=== PATIENT | female | born 1980 | race Caucasian/White ===

== ENCOUNTER 2024-08-24 08:38 | Outpatient (AMB) | payer OTHER, SELFPAY ==
--- NOTE | 2024-08-24 08:44 | MHC.PC.OV ---
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/ ankle issues Intake Note: establish care Is last menstrual period known: No Post menopausal: No Patient : No Allergies No Known Allergies Allergy (Verified 08/24/24 09:15) Medication List - Last Reconciled 08/24/24 by Brian Vega CNP venlafaxine ER 37.5 mg PO DAILY Tobacco use date assessed: 08/24/24 Dental Screening Dental Screen Date: 08/24/24 Did you have a dental visit in the last 12 months?: Yes Did you have a dental problem in the last 6 months where you did not have access to dental care?: Yes Was dental information given to patient?: Patient has dentist HPI HPI Comments History of Present Illness Details New patient visit to [facility]. Former PCP: [facility], Dr. Sacha Choi. Last office visit: Spring 2023. Last CPE/Labs: 1 year ago. The patient is a 44-year-old female presenting to [facility]. She has anxiety and weight management concerns. She reports being prescribed Venlafaxine 37.5 mg daily for anxiety, with the condition primarily managed through this medication. She denies concurrent depression symptoms but has experienced mild depression in the past. The patient is experiencing weight gain and persistent hot flashes associated with perimenopause, noting a weight increase of approximately 30 pounds over the past year and a half. She also has a history of bunions and arthritis in both feet, for which she wears orthotic shoe inserts. Eczema that exacerbates during winter was managed with prescription creams. 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 - Housing: Resides in [place]. - Substance Use: Vapes nicotine daily for the past five years, consumes a couple of glasses of wine few times a week, and occasionally uses THC gummies. - Exercise: Recently resumed regular exercise, walking and gym sessions twice a week. - Diet: Reports generally healthy dietary choices. - Sleep: Disturbed sleep due to hot flashes. - Medical Care: No current primary care provider due to insurance issues; sees a counselor weekly and no psychiatrist. Health Maintenance - Last eye exam was 2 years ago. Wears prescription for near and far vision. Will refer to ophthalmology. - She has not been vaccinated for influenza this season. She will be vaccinated at the end of this visit. - Her last tetanus vaccine was in 2010. She will get the vaccine at the end of this visit. - Last dental visit was 6 months ago. She has dental cleaning scheduled next week. - Last pap smear test was within a year at [facility] [place]. - Referral to dietitian planned for weight management. - Referral to an OBGYN for perimenopausal symptoms. - Referral to director of supply chain for foot and bunion issues. - Referral to plating tank operator apprentice for eczema management. - Last mammogram was June 2023 with dense breast tissue. Will order a mammogram. - She was followed by podiatry for foot issues and dermatology for seasonal eczema to both hands. [facility] - Dad: prediabetes, hypertension, hyperlipidemia - PGM: Mental illness - PGF: Diabetes - MGF: prostate cancer [facility] Medical History (Updated 08/24/24 @ 10:31 by Brian Vega CNP) Umbilical hernia Surgical History (Updated 08/24/24 @ 08:46 by ALYSSA Jj) History of knee surgery Family History (Updated 08/24/24 @ 08:49 by ALYSSA Jj) Paternal Grandmother FH: mental illness Family/Other FH: mental illness Daughter FH: mental illness Father High blood pressure High cholesterol Diabetes Paternal Grandfather Diabetes Maternal Grandfather Prostate cancer Social History (Updated 08/24/24 @ 08:46 by ALYSSA Jj) Housing: House Patient Tobacco Use Status: Never used Tobacco e-Cigarette/Vaping Use: Currently Using Substance Use Type: Marijuana service: No Current occupational status: employed 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 1. Little interest or pleasure in doing things: several days 2. Feeling down, depressed, or hopeless: several days 3. Trouble falling or staying asleep, or sleeping too much: more than half the days 4. Feeling tired or having little energy: more than half the days 5. Poor appetite or overeating: not at all 6. Feeling bad about yourself - or that you are a failure or have let yourself or your family down: several days 7. Trouble concentrating on things, such as reading the newspaper or watching television: not at all 8. Moving or speaking so slowly that other people could have noticed. Or the opposite - being so fidgety or restless that you have been moving around a lot more than usual: not at all 9. Thoughts that you would be better off or of hurting yourself in some way: not at all Total score: 7 Depression Screening Interpretation: Positive Depression Screening Done: Yes 31390 - PHQ-9 Billing: Yes Source: Developed by Drs. Henrique Zapata, Marilynn Pastor, Jose Malcolm and colleagues, with an educational wandy from [employer]. Thrive Questionnaire Date Thrive assessed: 08/24/24 I am a: Patient What is your living situation today?: I have a steady place to live Within the past 12 months, did the food you bought not last and you didn't have the money to get more?: Never true Within the past 12 months, did you worry whether your food would run out before you got money to buy more?: Never true Do you have trouble paying for medicines?: No Do you have trouble getting transportation to medical appointments?: No Do you have trouble paying your heating and electricity bill?: No Do you have trouble taking care of your child, family member or friend?: No Do you have trouble with day-to-day activities such as bathing, preparing meals, shopping, managing finances, etc.?: No Are you currently unemployed and looking for a job?: No Are you interested in more education?: Yes Please select the resources that you would like help with: None Currently or been in a relationship where the following occur: No concerns reported THRIVE Score: 0 AUDIT C Alcohol Use Questionnaire (AUDIT-C) 1. How often do you have a drink containing alcohol?: 2-3 times a week 2. How many drinks containing alcohol do you have on a typical day when you are drinking?: 3 or 4 3. How often do you have six or more drinks on one occasion?: Monthly Total Score: 6 Score Reviewed/Action Taken: Yes ISRAEL-7 AMB Questionnaire ISRAEL-7 Date ISRAEL - 7 assessed: 08/24/24 Feeling nervous, anxious, or on edge: 1 = Several days Not being able to stop or control worryin = Several days Worrying too much about different things: 1 = Several days Trouble relaxin = Several days Being so restless that it is hard to sit still: 2 = More than half the days Becoming easily annoyed or irritable: 1 = Several days Feeling afraid as if something awful might happen: 0 = Not at all Total ISRAEL-7 score (0-4 normal; 5-9 mild; 10-14 moderate; 15-21 severe): 7 Source: Developed by Drs. Henrique Zapata, Marilynn Pastor, Jose Malcolm and colleagues, with an educational wandy from [employer]. ISRAEL-7 Assessment Billing ISRAEL-7 Assessment Tool: ISRAEL-7 Assessment 77224 Review of Systems Const Details: Denies chills, Denies fatigue, Denies fever(s), Denies headache(s) and Denies weakness HEENT Denies change in vision, Denies dizziness, Denies headache(s), Denies hearing loss, Denies nasal congestion, Denies sinus pain, Denies sinus pressure and Denies sore throat Card Denies chest pain, Denies lightheadedness, Denies dyspnea and Denies other (palpitations) Resp Denies cough, Denies dyspnea and Denies wheezing GI Denies abdominal pain, Denies melena, Denies hematochezia, Denies change in bowel habits, Denies dyspepsia and Denies nausea Denies hematuria and Denies dysuria Musc Reports arthritis in feet and bunions, uses orthotic inserts, Denies abnormal gait, Denies myalgias, Denies numbness and Denies tingling Skin/Breast Reports eczema on hands that worsens in winter, Denies unusual bruising and Denies wounds Neuro Denies abnormal gait, Denies dizziness, Denies headache(s), Denies memory loss, Denies numbness, Denies Sensory deficit (Neuro), Denies tingling and Denies weakness Psych Denies anxiety, Denies depression and Denies memory loss Endo Denies cold intolerance, Denies fatigue, Denies heat intolerance, Denies polydipsia and Denies polyuria Gutierrez/Lymph Denies easy bleeding and Denies easy bruising Aller/Immun Denies wheezing Physical exam (Primary Care) Vital Signs: Last Vital Signs Temp 99.4 F 08/24/24 08:51 Pulse 99 08/24/24 08:51 Resp 16 08/24/24 08:51 BP 120/80 08/24/24 09:06 Pulse Ox 98 08/24/24 08:51 Oxygen Delivery Method Room Air 08/24/24 08:51 BMI result Body Mass Index 29.0 Tobacco/Smoking Status: Tobacco use Status Tobacco use date assessed 08/24/24 08/24/24 09:14 Patient Tobacco Use Status Never used Tobacco 08/24/24 09:14 e-Cigarette/Vaping Use Currently Using 08/24/24 09:14 PHQ-9: PHQ-9 Score PHQ-9: Total score 7 08/24/24 10:09 Depression Screening Interpretation: Positive Thrive Assessment: Date of Thrive Assessment Date Thrive assessed 08/24/24 08/24/24 08:56 Currently or been in a relationship where the following occur: No concerns reported Const Other: General: no acute distress, well developed, alert and awake Nutritional Appearance: well nourished Orientation/consciousness: patient oriented x3 HENMT Head: Yes normocephalic and Yes atraumatic Ears: hearing grossly normal bilaterally and TM's normal bilaterally General nose exam: Normal external nose present and Normal nares present Mouth: Normal oral and palatal mucosa present and moist mucous membranes Teeth and gingiva: dentition normal Throat: Yes oropharynx normal Eyes Pupils: Equal, round and reactive pupils present and Pupil accommodation reflex normal EOM: EOMs intact bilaterally Neck Neck: Yes normal visual inspection, Yes no lymphadenopathy and Yes trachea midline Thyroid: Thyroid normal Carotids: no bruits Lymphatic: no lymphadenopathy noted Chest Chest palpation & inspection: normal inspection of the chest Resp Effort & Inspection: normal respiratory effort Auscultation: clear to auscultation bilaterally Cardio Rate: regular rate Rhythm: regular rhythm Heart sounds: S1 normal heart sound present, S2 normal heart sound present, no gallops, no murmurs and no rubs Bruits: no abdominal aortic bruits and no carotid bruits GI Palpation (GI): No Abdominal aortic bruit present, Soft to palpation, nontender, No hepatosplenomegaly present and No Rebound tenderness present Auscultation: normal bowel sounds General: Yes no CVA tenderness Back/Spine/Pelvis Back: no CVA tenderness Cervical Spine: cervical ROM normal and No Cervical spine tenderness Thoracic/Lumbar Spine: thoraco-lumbar ROM normal, No pain with thoraco-lumbar ROM, No thoracic spinal tenderness and No lumbar spinal tenderness Skin General: warm and dry. Normal skin color. Normal skin turgor Lesions: no lesions Rashes: no rashes Trauma: no lacerations or abrasions Wounds: no wounds Nails: normal Neuro General: patient oriented x3, gait normal and CN's II-XI intact bilaterally Cranial nerves: Yes Equal, round and reactive pupils present Cognition (Neuro): normal cognition Gait exam (Neuro): Normal gait present Motor exam (neuro): 5/5 motor strength present throughout Sensory Exam: No Sensory deficit (Neuro) Deep tendon reflexes (DTR's): Right patellar reflex intensity grade: 2+ and Left patellar reflex intensity grade: 2+ Extrem General: Yes normal to inspection, No edema and No calf tenderness Psych Appearance: grossly normal Affect: normal affect Attitude: cooperative Thought process: Normal thought process present Office Procedures Flu Questionnaire Does the patient have a severe egg allergy?: No Does the patient have severe life threatening allergies?: No Does the patient have a fever or illness today?: No Has the patient ever had Guillain-[place] Syndrome?: No Has the patient ever had any past reaction to a flu shot?: No Immunizations Fluarix Triv 6705-3297 (PF) 45 mcg (15 mcg x 3)/0.5 mL IM syringe Performing Provider: Brian Vega CNP Performing Location: [facility] [place] [facility] Administered by: Daya Madrigal RN on 08/24/24 10:09 Dose Route Admin Location Dispensed Lot Number Expiration Date [facility] Academic Counselor 0.5 mL IM Left Deltoid 0.5 mL [id number] 03/19/25 [id number] [employer] VIS Given Date VIS Provided VIS Publication Date 08/24/24 Single Vaccine 21 Eligibility Eligibility Date Funding Source Not [facility] Eligible 08/24/24 Private Administration Comments: Patient received two shots in the left deltoid, the flu vaccine and the TDaP. Flu shot was given to the left of the TDaP. Boostrix Tdap 2.5 Lf unit-8 mcg-5 Lf/0.5 mL intramuscular syringe Performing Provider: Brian Vega CNP Performing Location: [facility] [place] [facility] Administered by: Daya Madrigal RN on 08/24/24 10:09 Dose Route Admin Location Dispensed Lot Number Expiration Date [facility] Academic Counselor 0.5 mL IM Left Deltoid 0.5 mL [id number] 10/11/26 [id number] [employer] VIS Given Date VIS Provided VIS Publication Date 08/24/24 Single Vaccine 21 Eligibility Eligibility Date Funding Source Not [facility] Eligible 08/24/24 Private Administration Comments: Patient received two shots in the left deltoid, the flu vaccine and the TDaP. Flu shot was given to the left of the TDaP. Coding Level of Care Code New Pt Level 3 (48806) New Pt Prev Care 40-64y(72297) Diagnoses Normal physical examination, routine Z00.00 Anxiety F41.9 Perimenopausal vasomotor symptoms N95.1 Preventative health care Z00.00 Encounter for weight management Z76.89 Engages in vaping Z72.89 Eczema of both hands L30.9 Bilateral bunions M21.611; M21.612 Arthritis of both feet M19.071; M19.072 Eye exam, routine Z01.00 Laboratory tests ordered as part of a complete physical exam (CPE) Z00.00 Additional Codes ISRAEL-7 Assessment Billing - ISRAEL-7 Assessment Tool: ISRAEL-7 Assessment 78860 ([id number]) PHQ-9 - 91140 - PHQ-9 Billing: Yes ([id number]) Assessment & Plan Assessment & Plan (1) Normal physical examination, routine: Code(s): Z00.00 - Encounter for general adult medical examination without abnormal findings Category: Medical Plan: No significant functional limitation noted. (2) Anxiety: Code(s): F41.9 - Anxiety disorder, unspecified Category: Medical Plan: Continue current current treatment regimen. Follow up with therapist as planned. Focus on managing anxiety with lifestyle modifications. (3) Perimenopausal vasomotor symptoms: Code(s): N95.1 - Menopausal and female climacteric states Category: Medical Plan: Refer to an OBGYN for professional management of symptoms. (4) Preventative health care: Code(s): Z00.00 - Encounter for general adult medical examination without abnormal findings Category: Medical Plan: Administer flu vaccine and tetanus booster. Order mammogram and referred to ophthalmology. (5) Encounter for weight management: Code(s): Z76.89 - Persons encountering health services in other specified circumstances Category: Medical Plan: Refer to dietitian for nutritional counseling. (6) Engages in vaping: Code(s): Z72.89 - Other problems related to lifestyle Category: Medical Plan: Instructed on the health risks and complications of vaping and cessation encouraged. (7) Eczema of both hands: Code(s): L30.9 - Dermatitis, unspecified Category: Medical Plan: Refer to plating tank operator apprentice for history of seasonal eczema of both hands. (8) Bilateral bunions: Code(s): M21.611 - Bunion of right foot; M21.612 - Bunion of left foot Category: Medical Plan: Refer for follow-up on orthosis fit and bunion management. (9) Arthritis of both feet: Code(s): M19.071 - Primary osteoarthritis, right ankle and foot; M19.072 - Primary osteoarthritis, left ankle and foot Category: Medical Plan: Plan as above. (10) Eye exam, routine: Code(s): Z01.00 - Encounter for examination of eyes and vision without abnormal findings Category: Medical Plan: Refer to ophthalmology for routine eye exam. (11) Laboratory tests ordered as part of a complete physical exam (CPE): Code(s): Z00.00 - Encounter for general adult medical examination without abnormal findings Category: Medical Plan: Fasting labs ordered as part of a complete physical exam. Advised to fast for at least 10 hours before getting labs drawn. May drink water Verbalized understanding and agreed with treatment plan. Plan I discussed with the patient the current management of her anxiety with Venlafaxine and confirmed it appears to be effectively controlling symptoms. We addressed the impact of perimenopausal symptoms on her weight and sleep, and hence recommended consulting an OBGYN for tailored management. I explained the benefits of regular exercise and healthy diet in weight management, especially in the context of hormone changes. We also discussed referring her to a dietitian for more structured nutritional advice. I advised on the importance of stopping vaping due to its associated risks and suggested possible cessation aids. All recommendations, including necessary vaccinations and health screenings, were discussed, emphasizing the importance of preventive health. Orders: Orders TDaP Immunization Today Z23 - Encounter for immunization Complete Blood Count Auto Diff Today Z00.00 - Encounter for general adult medical examination without abnormal findings Lipid Panel Today Z00.00 - Encounter for general adult medical examination without abnormal findings MM screening mammo BI Today Z12.31 - Encounter for screening mammogram for malignant neoplasm of breast Influenza [id number] Immunization Today Z23 - Encounter for immunization Comprehensive [place]. Panel Fast Today Z00.00 - Encounter for general adult medical examination without abnormal findings TSH reflex Free T4 Today Z00.00 - Encounter for general adult medical examination without abnormal findings UA CC w/rflx Micro + Cult Today Z00.00 - Encounter for general adult medical examination without abnormal findings Microalbumin, Random (w Creat) Today Z00.00 - Encounter for general adult medical examination without abnormal findings Referrals STAFF PSYCHOLOGIST Referral N95.1 - Menopausal and female climacteric states Ophthalmology Referral Z01.00 - Encounter for examination of eyes and vision without abnormal findings Dermatology Referral L30.9 - Dermatitis, unspecified Podiatry Referral M19.071 - Primary osteoarthritis, right ankle and foot, M19.072 - Primary osteoarthritis, left ankle and foot, M21.611 - Bunion of right foot, M21.612 - Bunion of left foot Patient Instructions: - Continue taking Venlafaxine as prescribed. - Schedule and attend referrals to dietitian, OBGYN, director of supply chain, and plating tank operator apprentice. - Receive flu and tetanus vaccines as planned. - Schedule mammogram and eye exam as advised. - Maintain a balanced diet and engage in regular physical activity. - Consider discontinuing vaping and explore cessation alternatives. - Monitor eczema and contact a plating tank operator apprentice for prescription if symptoms worsen. - Fast for 10-12 hours before lab tests to be conducted prior to the next telehealth visit in 2-3 weeks. - Confirm your next telehealth appointment to review lab results before leaving today. Patient was informed and verbally consented to the use of an ambient scribe for clinic note documentation during this visit.
[2024-08-24 08:51] VITALS: BP 130/90; PULSE 99; RESP 16; TEMP 37.4; O2SAT 98; BMI 29.0
[2024-08-24 09:06] VITALS: BP 120/80
== END 2024-08-24 09:46 | disposition home or self-care (01) ==
PROVIDERS: Visit Provider Nurse Practitioner Family
DX: Z00.00 Encounter for general adult medical examination without abnormal findings (principal); F41.9 Anxiety disorder, unspecified; N95.1 Menopausal and female climacteric states; Z76.89 Persons encountering health services in other specified circumstances; Z72.89 Other problems related to lifestyle; L30.9 Dermatitis, unspecified; M21.611 Bunion of right foot; M21.612 Bunion of left foot; M19.071 Primary osteoarthritis, right ankle and foot; M19.072 Primary osteoarthritis, left ankle and foot; Z01.00 Encounter for examination of eyes and vision without abnormal findings; Z23 Encounter for immunization

== ENCOUNTER → 2024-08-24 08:38 | Outpatient (BNVA) | payer OTHER, SELFPAY | PROVIDERS: Visit Provider Nurse Practitioner Family | DX: Z00.01 Encounter for general adult medical examination with abnormal findings (principal); Z23 Encounter for immunization; F41.9 Anxiety disorder, unspecified; N95.1 Menopausal and female climacteric states; L30.9 Dermatitis, unspecified; M21.611 Bunion of right foot; M21.612 Bunion of left foot; M19.071 Primary osteoarthritis, right ankle and foot; M19.072 Primary osteoarthritis, left ankle and foot; Z76.89 Persons encountering health services in other specified circumstances; Z72.89 Other problems related to lifestyle | CPT/HCPCS: 90471; 90472; 90656; 90715; 96127 ==

== ENCOUNTER 2024-08-30 08:49 | Outpatient (REF) | payer OTHER, SELFPAY ==
[2024-08-30 12:39] LABS: Influenza A PCR NEGATIVE (Negative); Influenza B PCR NEGATIVE (Negative); Resp Syncy Virus RNA Qual PCR NEGATIVE (Negative); SARS COV2 PCR INHOUSE NEGATIVE (Negative)
== END 2024-08-30 08:50 | disposition home or self-care (01) ==
LOC: HO.LAB 08:49
PROVIDERS: Nurse Practitioner Family; PCP Family Medicine; Visit Provider Nurse Practitioner Family
DX: J06.9 Acute upper respiratory infection, unspecified (principal)
CPT/HCPCS: 0241U; 87880

== ENCOUNTER 2024-08-30 08:49 | Outpatient (AMB) | payer OTHER, SELFPAY ==
--- NOTE | 2024-08-30 08:50 | AM.OFFWIN_ITS ---
Intake Vital Signs 08/30/24 08:55 Height 5 ft 1 in Weight 156 lb BMI 29.5 BP 142/80 H Blood Pressure Location Rt brachial Position Sitting Respiration 14 Pulse 98 Pulse Source Pulse Oximeter Temp 98.5 F Temp Source Oral Pulse Oximetry (%) 98 Oxygen Delivery Method Room Air Intake Visit Reasons: est/fever/sore throat/cough/can't sleep Intake Note: Patient complaining of stuffy nose, headache, sore throat, burning eyes, coughing up mucus, fever and light headed, started last . Patient Tobacco Use Status: Never used Tobacco Allergies No Known Allergies Allergy (Verified 08/30/24 08:54) Do you need a note to return to daycare/school/sports/work: Yes HPI HPI Comments History of Present Illness Details The patient is a 44-year-old female presenting with worsening respiratory symptoms over the past week. Initially, she reported a persistent cough, sore throat, headaches, dizziness, and nasal congestion starting since the last . The cough is productive with expectoration of thick, yellow mucus. She has experienced low-grade fever, with the highest recorded temperature at home being 100.5?F, but denies chills and body aches. To manage symptoms, she has been using Mucinex and ibuprofen, although she has not taken t hese today. There is a household contact, her , with similar symptoms including fatigue and nasal congestion. The patient has already tested negative for COVID-19 on the preceding Wednesday. The symptoms are reported to be worsening rather than improving. [facility] Medical History (Updated 08/30/24 @ 09:10 by Brian Vega CNP) Umbilical hernia Surgical History (Updated 08/24/24 @ 08:46 by ALYSSA Jj) History of knee surgery Family History (Updated 08/24/24 @ 08:49 by ALYSSA Jj) Paternal Grandmother FH: mental illness Family/Other FH: mental illness Daughter FH: mental illness Father High blood pressure High cholesterol Diabetes Paternal Grandfather Diabetes Maternal Grandfather Prostate cancer Social History (Updated 08/24/24 @ 08:46 by ALYSSA Jj) Housing: House Patient Tobacco Use Status: Never used Tobacco e-Cigarette/Vaping Use: Currently Using Substance Use Type: Marijuana service: No Current occupational status: employed 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 Current occupational exposures/hazards: No Cognitive needs: No Hearing needs: No Vision needs: Yes Review of Systems Const Details: Denies chills, Denies fatigue, Denies fever(s), Reports headache(s) and Denies weakness Cardiac Denies chest pain, Denies claudication, Denies leg edema, Denies lightheadedness, Denies palpitations, Denies dyspnea, Denies dyspnea on exertion, Denies orthopnea and Denies other (Loss of consciousness) Resp Reports cough, Denies excessive phlegm production, Denies dyspnea, Denies dyspnea on exertion, Denies snoring and Denies wheezing ENT Reports as per HPI Physical Exam Vital Signs: Last Vital Signs Temp 98.5 F 08/30/24 08:55 Pulse 98 08/30/24 08:55 Resp 14 08/30/24 08:55 BP 142/80 H 08/30/24 08:55 Pulse Ox 98 08/30/24 08:55 Oxygen Delivery Method Room Air 08/30/24 08:55 BMI result Body Mass Index 29.5 Const Other: General: comfortable and no acute distress Orientation/consciousness: patient oriented x3 Chest Chest palpation & inspection: normal inspection of the chest Resp Auscultation: clear to auscultation bilaterally Cardiac Palpation: normal PMI Heart sounds: S1 normal heart sound present, S2 normal heart sound present, no gallops, no murmur, no rubs ENT Head is normocephalic Bilateral ear canal and TM are normal Nasal turbinates and oropharynx are pink and moist Sinuses are nontender with palpation No auricular or cervical lymphadenopathy Results AMB Rapid Strep AMB Rapid Strep Negative Last Edit by Tere Joshua MA on 08/30/24 09:13 Results Reviewed Results Reviewed: Laboratory Last Values Strep Scn Rapid Clinic Negative 08/30/24 09:11 Assessment & Plan Assessment & Plan (1) Viral upper respiratory illness: Code(s): J06.9 - Acute upper respiratory infection, unspecified Plan: Likely viral illness though possibly allergies. No exam evidence of bacterial infection Viral illness There is no antibiotic medication for viruses.? They must run their course.? Most average 5-7 days but 7-10 days is not uncommon and up to 14 days is still possible.? A cough is often the last symptom to resolve and this can last for weeks in some cases. Rest Hydrate well -? Drink plenty of fluids.? Especially water. Tylenol or ibuprofen for muscle aches, headache, fever/discomfort Benzonatate as prescribed for cough Cannot rule out COVID-19/RSV/Flu infection Nasal swab acquired and will be sent to the lab Return for new or worsening symptoms Verbalized understanding and agreed with treatment plan Patient was informed and verbally consented to the use of an ambient scribe for clinic note documentation during this visit. Orders: Orders SARS-CoV2/FLU/RSV Today J06.9 - Acute upper respiratory infection, unspecified AMB Rapid Strep Screen Today J06.9 - Acute upper respiratory infection, unspecified Medications: New benzonatate 100 mg PO BID PRN 10 caps 0RF cough Coding Level of Care Code Est Pt Level 3 (91242) Diagnoses Viral upper respiratory illness J06.9
[2024-08-30 08:55] VITALS: BP 142/80; PULSE 98; RESP 14; TEMP 36.9; O2SAT 98; BMI 29.5
== END 2024-08-30 09:21 | disposition home or self-care (01) ==
PROVIDERS: PCP Nurse Practitioner Family; Visit Provider Nurse Practitioner Family
DX: J06.9 Acute upper respiratory infection, unspecified (principal)

== ENCOUNTER 2024-09-19 08:36 | Outpatient (REF) | payer OTHER, SELFPAY ==
[2024-09-19 11:11] LABS: Appearance Urine Clear; Color Urine Yellow; Glucose Urine UA Negative (Negative); Leukocyte Esterase Urine Negative (Negative); Nitrite Urine Negative (Negative); PH 5.5 (5.0-9.0); Urine Blood Negative (Negative); Urine Ketones Negative (Negative); Urine Protein Negative (Neg-Trace)
[2024-09-19 11:25] LABS: MANUAL DIFF FLAG NO
[2024-09-19 11:30] LABS: Basophils Percent Auto 0.5 % (0-2); Eosinophils Absolute Auto 0.1 X10*3/uL (0.0-0.4); Eosinophils Percent Auto 2.2 % (0-4); Hematocrit 39.3 % (37.0-47.0); Hemoglobin 13.7 g/dl (12.0-16.0); Imm Gran Abs Auto 0.01 X10*3/uL (0.00-0.03); Imm Gran Pct Auto 0.2 % (0.0-0.4); Lymphocytes Absolute Auto 1.3 X10*3/uL (1.2-4.9); Lymphocytes Percent Auto 23.7 % (20-40); Mean Corpuscular HGB Conc 34.9 g/dl (31.0-35.0); Mean Corpuscular Hemoglobin 34.5 pg (27.0-33.0); Mean Platelet Volume 8.7 fL (9.4-12.3); Monocytes Absolute Auto 0.5 X10*3/uL (0.1-1.2); Monocytes Percent Auto 9.2 % (2-11); Neutrophils Absolute Auto 3.5 x10*3/uL (2.0-8.3); Neutrophils Percent Auto 64.2 % (45-73); Platelet Count 342 X10*3/uL (160-400); Red Blood Count 3.97 X10*6/uL (4.20-5.50); Red Cell Distribution Width 11.9 % (11.0-16.0); White Blood Count 5.5 X10*3/uL (4.8-10.8)
[2024-09-19 11:46] LABS: Creatinine Urine 131.98 mg/dL; Microalbum/Creatinine Ratio Ur 4.5 ug/mg cr (<30)
[2024-09-19 12:17] LABS: Alanine Aminotransferase 53 U/L (0-31); Albumin Level 4.3 g/dL (3.5-5.0); Alkaline Phosphatase 84 U/L (39-117); Anion Gap 13 (12-20); Aspartate Amino Transferase 44 U/L (5-31); Bilirubin Total 0.7 mg/dL (0.0-1.0); Blood Urea Nitrogen 12 mg/dL (9-16); Calcium 8.8 mg/dL (8.4-10.2); Carbon Dioxide 24 mmol/L (22-29); Chloride 107 mmol/L (96-108); Cholesterol 205 mg/dL (<200); Estimated Glomerular Filt Rate > 60; Glucose Fasting 105 mg/dL (60-99); HDL Cholesterol 65 mg/dL (>40); LDL Cholesterol Calculated 101 mg/dL (<100); Potassium 4.1 mmol/L (3.3-5.1); Sodium 140 mmol/L (135-145); Total Protein 7.3 g/dL (6.5-8.0); Triglycerides 198 mg/dL (<150)
[2024-09-19 12:18] LABS: TSH reflex Free T4 2.81 uIU/mL (0.32-4.0)
== END 2024-09-19 08:37 | disposition home or self-care (01) ==
LOC: HO.WFDLDS 08:36
PROVIDERS: Visit Provider Nurse Practitioner Family
DX: Z00.00 Encounter for general adult medical examination without abnormal findings (principal)
CPT/HCPCS: 36415; 80053; 80061; 81003; 82043; 82570; 84443; 85025

== ENCOUNTER 2024-09-19 10:42 | Outpatient (REF) | payer OTHER, SELFPAY ==
--- NOTE | ~2024-09-19 | MM_ITS ---
EXAMINATION: MM SCREENING DIGITAL BREAST TOMOSYNTHESIS, BILATERAL CLINICAL INFORMATION: Screening. Asymptomatic. COMPARISON: Mammography: Comparison is made with available priors TECHNIQUE: Digital breast mammography with tomosynthesis is performed in both the craniocaudal and mediolateral oblique views along with computer-aided detection (CAD). FINDINGS: The breasts are heterogeneously dense, which may obscure small masses (ACR BI-RADS breast composition Category c). There are no significant masses, abnormal calcifications, or other abnormalities. MM/MM tomosynthesis screening BI IMPRESSION: No mammographic evidence of malignancy. ASSESSMENT: BI-RADS BI-RADS 1 - Negative RECOMMENDATION: Routine annual mammography screening. 1 year F/U This examination should not preclude the clinical evaluation of a suspicious palpable abnormality. This patient's information was entered into a reminder system with a target due date for their next mammogram. Electronically signed by: Christy Esqueda DO 09/30/2024 05:08 PM TERRELL
== END 2024-09-19 10:43 | disposition home or self-care (01) ==
LOC: HO.MAMMO 10:42
PROVIDERS: PCP Nurse Practitioner Family; Visit Provider Nurse Practitioner Family
DX: Z12.31 Encounter for screening mammogram for malignant neoplasm of breast (principal)
CPT/HCPCS: 77063; 77067

== ENCOUNTER → 2024-09-19 11:00 | Outpatient (BNV) | payer OTHER, SELFPAY | PROVIDERS: PCP Nurse Practitioner Family; Visit Provider Internal Medicine | DX: Z12.31 Encounter for screening mammogram for malignant neoplasm of breast (principal) | CPT/HCPCS: 77063; 77067 ==

== ENCOUNTER 2024-09-26 14:47 | Outpatient (AMB) | payer OTHER, SELFPAY ==
--- NOTE | 2024-09-26 13:44 | MHC.PC.OV ---
Intake Visit Reasons: 2-3 wks telehealth labs review luis 09/07 Intake Note: pt here for telehealth for lab review Sourcing Specialist Required: No Is last menstrual period known: No Post menopausal: No Patient : No Allergies No Known Allergies Allergy (Verified 09/26/24 14:24) Tobacco use date assessed: 09/26/24 Dental Screening Dental Screen Date: 09/26/24 Did you have a dental visit in the last 12 months?: Yes Did you have a dental problem in the last 6 months where you did not have access to dental care?: No Was dental information given to patient?: Patient has dentist HPI HPI Comments History of Present Illness Details 44-year-old female presents for a telehealth visit for review of recent lab results. She admits to taking venlafaxine as prescribed without adverse reactions. No acute symptoms. [facility] Medical History (Updated 09/26/24 @ 15:58 by Brian Vega CNP) Umbilical hernia Surgical History (Updated 08/24/24 @ 08:46 by ALYSSA Jj) History of knee surgery Family History (Updated 08/24/24 @ 08:49 by ALYSSA Jj) Paternal Grandmother FH: mental illness Family/Other FH: mental illness Daughter FH: mental illness Father High blood pressure High cholesterol Diabetes Paternal Grandfather Diabetes Maternal Grandfather Prostate cancer Social History (Updated 08/24/24 @ 08:46 by ALYSSA Jj) Housing: House Patient Tobacco Use Status: Never used Tobacco e-Cigarette/Vaping Use: Currently Using Substance Use Type: Marijuana service: No Current occupational status: employed 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 Henrique Zapata, Marilynn Pastor, Jose Malcolm and colleagues, with an educational wandy from [employer]. Review of Systems Const Details: Const Denies chills, Denies fatigue, Denies fever(s), Denies headache(s) and Denies weakness ENT Denies dizziness and Denies headache(s) Card Denies chest pain, Denies lightheadedness, Denies dyspnea and Denies other (Palpitations) Resp Denies cough, Denies dyspnea, Denies wheezing and Denies other ( shortness of breath) Physical exam (Primary Care) Tobacco/Smoking Status: Tobacco use Status Tobacco use date assessed 08/24/24 09/26/24 13:44 Patient Tobacco Use Status Never used Tobacco 09/26/24 13:44 e-Cigarette/Vaping Use Currently Using 09/26/24 13:44 Thrive Assessment: Date of Thrive Assessment Date Thrive assessed 08/18/24 09/26/24 13:44 Const Other: Telehealth visit. No physical exam. Telehealth Telehealth Telehealth Platform: Telephone Location of provider rendering services: practice address Location of patient: address on file Patient Identification confirmed using: Name, : Yes Telehealth method: voice only Patient verbally consented to treatment: Yes Patient verbally consented to billing insurance company: Yes Patient informed of any privacy concerns related to visit: Yes Coding Level of Care Code Tele New Pt Level 3 (01175) Diagnoses Elevated fasting glucose R73.01 Transaminitis R74.01 Hyperlipidemia E78.5 Time Spent (min) 15 Assessment & Plan Assessment & Plan (1) Elevated fasting glucose: Code(s): R73.01 - Impaired fasting glucose Category: Medical Plan: Recent fasting glucose is slightly elevated, 105. Will recheck fasting glucose and make changes as needed. (2) Transaminitis: Code(s): R74.01 - Elevation of levels of liver transaminase levels Category: Medical Plan: Recent AST and ALT are slightly elevated, 44 and 53 respectively. Hepatic steatosis is likely. Routine exercise and healthy diet, including low fatty foods encouraged Will recheck lipid panel and make changes as needed. Advised to fast for 10-12 hours, may drink water, and perform fasting lipid panel blood work before next visit. Follow-up in 2 months or sooner with symptoms or concerns. Verbalized understanding and agreed with the plan. (3) Hyperlipidemia: Code(s): E78.5 - Hyperlipidemia, unspecified Category: Medical Plan: Recent triglycerides level is significantly elevated, 198; total cholesterol and LDL levels are slightly elevated, 205 and 101 respectively. Advised to limit foods high in saturated fat and avoid foods high in trans fat. Routine exercise encouraged. Perform fasting lipid panel blood work before next visit. Follow-up in 2 months verbalized understanding and agreed with treatment plan. Orders: Orders Liver Panel 2 Months R74.01 - Elevation of levels of liver transaminase levels Glucose Fasting 2 Months R73.01 - Impaired fasting glucose Lipid Panel 2 Months E78.5 - Hyperlipidemia, unspecified
== END 2024-09-26 16:16 | disposition home or self-care (01) ==
LOC: HO.HMCFM 14:47
PROVIDERS: PCP Nurse Practitioner Family; Visit Provider Nurse Practitioner Family
DX: R73.01 Impaired fasting glucose (principal); R74.01 Elevation of levels of liver transaminase levels; E78.5 Hyperlipidemia, unspecified

== ENCOUNTER → 2024-09-26 14:47 | Outpatient (BNVA) | payer OTHER, SELFPAY | PROVIDERS: PCP Nurse Practitioner Family; Visit Provider Nurse Practitioner Family ==

== ENCOUNTER 2024-12-04 13:00 | Outpatient (REF) | payer OTHER, SELFPAY ==
[2024-12-04 14:18] LABS: Alanine Aminotransferase 54 U/L (0-31); Albumin Level 4.6 g/dL (3.5-5.0); Alkaline Phosphatase 87 U/L (39-117); Aspartate Amino Transferase 36 U/L (5-31); Bilirubin Direct 0.2 mg/dL (0.0-0.5); Bilirubin Total 0.5 mg/dL (0.0-1.0); Cholesterol 185 mg/dL (<200); Glucose Fasting 90 mg/dL (60-99); HDL Cholesterol 55 mg/dL (>40); LDL Cholesterol Calculated 101 mg/dL (<100); Total Protein 7.9 g/dL (6.5-8.0); Triglycerides 145 mg/dL (<150)
== END 2024-12-04 13:01 | disposition home or self-care (01) ==
LOC: HO.LAB 13:00
PROVIDERS: PCP Nurse Practitioner Family; Visit Provider Nurse Practitioner Family
DX: E78.5 Hyperlipidemia, unspecified (principal); R74.01 Elevation of levels of liver transaminase levels; R73.01 Impaired fasting glucose
CPT/HCPCS: 36415; 80061; 80076; 82947

== ENCOUNTER 2024-12-08 09:02 | Outpatient (AMB) | payer OTHER, SELFPAY ==
--- NOTE | 2024-12-08 09:43 | A.OFFVIS_ITS ---
Vital Signs 12/08/24 09:46 Height 5 ft 1 in Weight 150 lb BMI 28.3 BP 130/78 Intake Visit Reasons: menopause/Internal Referral Intake Note: c/o of hot flashes ,gain weight x 1 year Tray Filler Required: No Information Interpreted: non-clinical & clinical Accompanied by: Self / Same As Patient Allergies No Known Allergies Allergy (Verified 12/08/24 09:47) Is last menstrual period known: No (mirena) HPI Comments Details: Presenting complaining of history of hot flashes associated with weight gain and insomnia. All symptoms started around 1-2 years around the time where venlafaxine ER was prescribed for anxiety. The plan according to the patient to discontinue venlafaxine by her PCP since her anxiety has improved markedly. The patient has Mirena IUD for control and is amenorrheic [facility] Medical History Umbilical hernia Surgical History Hx of hernia repair History of knee surgery Family History Paternal Grandmother FH: mental illness Family/Other FH: mental illness Daughter FH: mental illness Father HTN (hypertension) High cholesterol Diabetes Paternal Grandfather Diabetes Brain cancer Maternal Grandfather Prostate cancer Father HTN (hypertension) Social History Housing: House Patient Tobacco Use Status: Never used Tobacco e-Cigarette/Vaping Use: Currently Using Substance Use Type: Marijuana service: No 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 occupational status: employed 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 Current occupational exposures/hazards: No Cognitive needs: No Hearing needs: No Vision needs: Yes Female Reproductive History Menstrual control method: progestin IUCD Total pregnancies: 3 Full term: 2 Number of Living Children: 2 Ab induced: 1 Review of Systems Const All systems reviewed & are unremarkable except as noted in HPI and below Reports as per HPI and Reports no additional complaints GI Reports no additional complaints Reports no additional complaints Physical Exam Vital Signs: BMI result Body Mass Index 28.3 Assessment & Plan Assessment & Plan (1) Hot flash due to medication: Code(s): R23.2 - Flushing; T50.905A - Adverse effect of unspecified drugs, medicaments and biological substances, initial encounter Category: Medical Plan: Discussed with the patient venlafaxine side effects including but not limited to hot flashes, insomnia, and others. Recommended the patient to observe her symptoms after discontinuation of venlafaxine and if symptom persist will evaluate for menopause. Instructions given the patient to schedule a three- month follow-up appointment within annual exam. All questions answered, the patient verbalized understanding Coding Level of Care Code New Pt Level 3 (85570) Est Pt Prev Care 40-64y(60585) Diagnoses Hot flash due to medication R23.2; T50.905A
[2024-12-08 09:46] VITALS: BP 130/78; BMI 28.3
== END 2024-12-08 10:07 | disposition home or self-care (01) ==
LOC: HO.HWS 09:03
PROVIDERS: PCP Nurse Practitioner Family; Visit Provider Obstetrics & Gynecology
DX: R23.2 Flushing (principal); T50.905A Adverse effect of unspecified drugs, medicaments and biological substances, initial encounter; Z01.419 Encounter for gynecological examination (general) (routine) without abnormal findings
CPT/HCPCS: 99203

== ENCOUNTER 2024-12-11 12:46 | Outpatient (AMB) | payer OTHER, SELFPAY ==
--- NOTE | 2024-12-11 12:48 | MHC.PC.OV ---
Vital Signs 12/11/24 12:52 Height 5 ft 1 in Weight 152 lb 8 oz BMI 28.8 BP 143/89 H Blood Pressure Location Rt brachial Position Sitting Respiration 16 Pulse 89 Pulse Source Pulse Oximeter Temp 98.1 F Temp Source Oral Pulse Oximetry (%) 98 Oxygen Delivery Method Room Air Intake Visit Reasons: 2 mos anxiety, labs review Intake Note: patient here for 2 month follow up on anxiety and lab review Oncology Physician Assistant Required: No Is last menstrual period known: No Post menopausal: No Patient : No Allergies No Known Allergies Allergy (Verified 12/11/24 12:51) Tobacco use date assessed: 12/11/24 Dental Screening Dental Screen Date: 12/11/24 Did you have a dental visit in the last 12 months?: Yes Did you have a dental problem in the last 6 months where you did not have access to dental care?: No Was dental information given to patient?: Patient has dentist HPI HPI Comments History of Present Illness Details 44-year-old female presents for anxiety and review of recent lab results. She admits to taking venlafaxine as prescribed without adverse reactions. She notes controlled anxiety symptoms. Her family he is grieving recent of multiple close family members. She is worried about her children going through the process of grieving. [facility] Medical History Umbilical hernia Surgical History Hx of hernia repair History of knee surgery Family History Paternal Grandmother FH: mental illness Family/Other FH: mental illness Daughter FH: mental illness Father HTN (hypertension) High cholesterol Diabetes Paternal Grandfather Diabetes Brain cancer Maternal Grandfather Prostate cancer Father HTN (hypertension) Social History Housing: House Patient Tobacco Use Status: Never used Tobacco e-Cigarette/Vaping Use: Currently Using Substance Use Type: Marijuana service: No Current occupational status: employed 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 1. Little interest or pleasure in doing things: several days 2. Feeling down, depressed, or hopeless: several days 3. Trouble falling or staying asleep, or sleeping too much: more than half the days 4. Feeling tired or having little energy: several days 5. Poor appetite or overeating: several days 6. Feeling bad about yourself - or that you are a failure or have let yourself or your family down: not at all 7. Trouble concentrating on things, such as reading the newspaper or watching television: not at all 8. Moving or speaking so slowly that other people could have noticed. Or the opposite - being so fidgety or restless that you have been moving around a lot more than usual: not at all 9. Thoughts that you would be better off or of hurting yourself in some way: not at all Total score: 6 Depression Screening Interpretation: Positive Depression Screening Follow-up: Existing condition and In treatment Depression Screening Done: Yes 01218 - PHQ-9 Billing: Yes Source: Developed by Drs. Henrique Zapata, Marilynn Pastor, Jose Malcolm and colleagues, with an educational wandy from [employer]. Thrive Questionnaire Date Thrive assessed: 12/11/24 I am a: Patient What is your living situation today?: I have a steady place to live Within the past 12 months, did the food you bought not last and you didn't have the money to get more?: Never true Within the past 12 months, did you worry whether your food would run out before you got money to buy more?: Never true Do you have trouble paying for medicines?: No Do you have trouble getting transportation to medical appointments?: No Do you have trouble paying your heating and electricity bill?: No Do you have trouble taking care of your child, family member or friend?: No Do you have trouble with day-to-day activities such as bathing, preparing meals, shopping, managing finances, etc.?: No Are you currently unemployed and looking for a job?: No Are you interested in more education?: No Please select the resources that you would like help with: None Currently or been in a relationship where the following occur: No concerns reported THRIVE Score: 0 AUDIT C Alcohol Use Questionnaire (AUDIT-C) 1. How often do you have a drink containing alcohol?: 2-3 times a week 2. How many drinks containing alcohol do you have on a typical day when you are drinking?: 1 or 2 3. How often do you have six or more drinks on one occasion?: Less than monthly Total Score: 4 Score Reviewed/Action Taken: Yes ISRAEL-7 AMB Questionnaire ISRAEL-7 Date ISRAEL - 7 assessed: 12/11/24 Feeling nervous, anxious, or on edge: 1 = Several days Not being able to stop or control worryin = Several days Worrying too much about different things: 1 = Several days Trouble relaxin = Several days Being so restless that it is hard to sit still: 0 = Not at all Becoming easily annoyed or irritable: 1 = Several days Feeling afraid as if something awful might happen: 0 = Not at all Total ISRAEL-7 score (0-4 normal; 5-9 mild; 10-14 moderate; 15-21 severe): 5 Source: Developed by Drs. Henrique Zapata, Marilynn Pastor, Jose Malcolm and colleagues, with an educational wandy from [employer]. ISRAEL-7 Assessment Billing ISRAEL-7 Assessment Tool: ISRAEL-7 Assessment 01140 Review of Systems Const Details: Const Denies chills, Denies fatigue, Denies fever(s), Denies headache(s) and Denies weakness ENT Denies dizziness and Denies headache(s) Card Denies chest pain, Denies lightheadedness, Denies dyspnea and Denies other (Palpitations) Resp Denies cough, Denies dyspnea, Denies wheezing and Denies other ( shortness of breath) GI Denies abdominal pain, Denies melena, Denies hematochezia, Denies change in bowel habits, Denies dyspepsia and Denies nausea Denies hematuria and Denies dysuria Musc Denies abnormal gait, Denies myalgias, Denies arthralgias, Denies numbness and Denies tingling Skin/Breast Denies rash, Denies unusual bruising and Denies wounds Neuro Denies abnormal gait, Denies dizziness, Denies headache(s), Denies memory loss, Denies numbness, Denies Sensory deficit (Neuro), Denies tingling and Denies weakness Psych Denies anxiety, Denies depression, Denies memory loss Endo Denies cold intolerance, Denies fatigue, Denies heat intolerance, Denies polydipsia and Denies polyuria Aller/Immun Denies wheezing Physical exam (Primary Care) Vital Signs: Last Vital Signs Temp 98.1 F 12/11/24 12:52 Pulse 89 12/11/24 12:52 Resp 16 12/11/24 12:52 BP 143/89 H 12/11/24 12:52 Pulse Ox 98 12/11/24 12:52 Oxygen Delivery Method Room Air 12/11/24 12:52 BMI result Body Mass Index 28.8 Tobacco/Smoking Status: Tobacco use Status Tobacco use date assessed 12/11/24 12/11/24 12:55 Patient Tobacco Use Status Never used Tobacco 12/11/24 12:51 e-Cigarette/Vaping Use Currently Using 12/11/24 12:51 PHQ-9: PHQ-9 Score PHQ-9: Total score 6 12/11/24 12:51 Depression Screening Interpretation: Positive Depression Screening Follow-up: Existing condition and In treatment Thrive Assessment: Date of Thrive Assessment Date Thrive assessed 12/11/24 12/11/24 12:51 Currently or been in a relationship where the following occur: No concerns reported Const Other: General: no acute distress and well developed Nutritional Appearance: well nourished Orientation/consciousness: patient oriented x3 HENMT Head: Yes normocephalic and Yes atraumatic Eyes General: appearance normal, both eyes and all related structures Pupils: Equal, round and reactive pupils present EOM: EOMs intact bilaterally Resp Effort & Inspection: normal respiratory effort Auscultation: clear to auscultation bilaterally Cardio Rate: regular rate Rhythm: regular rhythm Heart sounds: S1 normal heart sound present, S2 normal heart sound present, no gallops, no murmurs and no rubs GI Palpation (GI): No Abdominal aortic bruit present, Soft to palpation, nontender, No hepatosplenomegaly present and No Rebound tenderness present Auscultation: normal bowel sounds General: Yes no CVA tenderness Back/Spine/Pelvis Back: no CVA tenderness Cervical Spine: cervical ROM normal and No Cervical spine tenderness Thoracic/Lumbar Spine: thoraco-lumbar ROM normal, No pain with thoraco-lumbar ROM, No thoracic spinal tenderness and No lumbar spinal tenderness Extrem General: Yes normal to inspection, No edema and No calf tenderness Skin General: warm and dry. Normal skin color. Normal skin turgor Neuro General: patient oriented x3, gait normal and no focal neuro deficit Cranial nerves: Yes Equal, round and reactive pupils present Cognition (Neuro): normal cognition Gait exam (Neuro): Normal gait present Sensory Exam: No Sensory deficit (Neuro) Psych Appearance: grossly normal Affect: normal affect Attitude: cooperative Thought process: Normal thought process present Coding Level of Care Code Est Pt Level 3 (08003) Diagnoses Anxiety F41.9 Grieving F43.21 Hyperlipidemia E78.5 Transaminitis R74.01 Elevated fasting glucose R73.01 Additional Codes ISRAEL-7 Assessment Billing - ISRAEL-7 Assessment Tool: ISRAEL-7 Assessment 93568 ([id number]) PHQ-9 - 33461 - PHQ-9 Billing: Yes ([id number]) Assessment & Plan Assessment & Plan (1) Anxiety: Code(s): F41.9 - Anxiety disorder, unspecified Category: Medical Plan: Controlled anxiety and depressive symptoms. PHQ-9 and ISRAEL-7 scores revealed mild depression and anxiety. She is grieving the of close family members and worried about are her children going through the process. Continue current treatment regimen. Routine exercise encouraged. May referred to a therapist for grieving as needed. Follow-up in 3 months or sooner with symptoms or concerns. Verbalized understanding and agreed with treatment plan. (2) Grieving: Code(s): F43.21 - Adjustment disorder with depressed mood Category: Medical Plan: Plan as above. (3) Hyperlipidemia: Code(s): E78.5 - Hyperlipidemia, unspecified Category: Medical Plan: Recent triglyceride level is normal, 145 from 198, total cholesterol level is normal, 185 from 205, LDL level is slightly elevated, 101 from 101, HDL level is normal. Advised to limit foods high in saturated fat and avoid foods high in trans fat. Routine exercise encouraged. Will monitor lipid panel levels annually or with related symptoms or concerns. Verbalized understanding and agreed with the treatment plan. (4) Transaminitis: Code(s): R74.01 - Elevation of levels of liver transaminase levels Category: Medical Plan: Recent AST and ALT levels are slightly elevated, 36 and 54 respectively, previous levels were 44 and 53 respectively. No acute symptoms. Likely hepatic steatosis. Routine exercise and healthy dietary choices, including low-fat encouraged. Will monitor liver enzymes annually or with related symptoms. Verbalized understanding and agreed with treatment plan. (5) Elevated fasting glucose: Code(s): R73.01 - Impaired fasting glucose Category: Medical Plan: Recent fasting glucose is normal, 90. Previous level was 105. Healthy diet and routine exercise encouraged. Verbalized understanding and agreed with the plan.
[2024-12-11 12:52] VITALS: BP 143/89; PULSE 89; RESP 16; TEMP 36.7; O2SAT 98; BMI 28.8
== END 2024-12-11 13:19 | disposition home or self-care (01) ==
LOC: HO.HMCFM 12:46
PROVIDERS: PCP Nurse Practitioner Family; Visit Provider Nurse Practitioner Family
DX: F41.9 Anxiety disorder, unspecified (principal); F43.21 Adjustment disorder with depressed mood; E78.5 Hyperlipidemia, unspecified; R74.01 Elevation of levels of liver transaminase levels; R73.01 Impaired fasting glucose

== ENCOUNTER → 2024-12-11 12:46 | Outpatient (BNVA) | payer OTHER, SELFPAY | PROVIDERS: PCP Nurse Practitioner Family; Visit Provider Nurse Practitioner Family | DX: F41.9 Anxiety disorder, unspecified (principal); F43.21 Adjustment disorder with depressed mood; E78.5 Hyperlipidemia, unspecified; R74.01 Elevation of levels of liver transaminase levels; R73.01 Impaired fasting glucose | CPT/HCPCS: 96127 ==

== ENCOUNTER 2025-01-23 10:42 | Outpatient (AMB) | payer OTHER, SELFPAY ==
--- NOTE | 2025-01-23 10:53 | A.OFFPC_ITS ---
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 Is last menstrual period known: No (IUD) Post menopausal: No Patient : No Allergies No Known Allergies Allergy (Verified 01/23/25 11:22) Medication List - Last Reconciled 01/23/25 by Brian Vega CNP levonorgestrel (Mirena) intrauterine Tobacco use date assessed: 01/23/25 Dental Screening Dental Screen Date: 01/23/25 Did you have a dental visit in the last 12 months?: Yes Did you have a dental problem in the last 6 months where you did not have access to dental care?: No Was dental information given to patient?: Patient has dentist HPI HPI Comments History of Present Illness Details 44-year-old female presents with complai nts of painful varicose veins to the back of her right lower thigh and calf. She has had varicose veins for past 20 years with intermittent soreness and achiness. However, her symptoms have been consistent recently with exercising prolonged standing. She rates the pain as moderate. No acute symptoms at this time. She notes that she stopped taking venlafaxine about 4 weeks ago and her anxiety and depressive symptoms have been controlled. He does not intend to continue with the medication. [facility] Medical History Umbilical hernia Surgical History Hx of hernia repair History of knee surgery Family History Paternal Grandmother FH: mental illness Family/Other FH: mental illness Daughter FH: mental illness Father HTN (hypertension) High cholesterol Diabetes Paternal Grandfather Diabetes Brain cancer Maternal Grandfather Prostate cancer Father HTN (hypertension) Social History Housing: House Patient Tobacco Use Status: Never used Tobacco e-Cigarette/Vaping Use: Currently Using Second Hand Smoke Exposure: No Substance Use Type: Marijuana service: No Current occupational status: employed 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 Current occupational exposures/hazards: No Cognitive needs: No Hearing needs: No Vision needs: Yes Questionnaire Thrive Questionnaire Date Thrive assessed: 12/04/24 I am a: Patient What is your living situation today?: I have a steady place to live Within the past 12 months, did the food you bought not last and you didn't have the money to get more?: Never true Within the past 12 months, did you worry whether your food would run out before you got money to buy more?: Never true Do you have trouble paying for medicines?: No Do you have trouble getting transportation to medical appointments?: No Do you have trouble paying your heating and electricity bill?: No Do you have trouble taking care of your child, family member or friend?: No Do you have trouble with day-to-day activities such as bathing, preparing meals, shopping, managing finances, etc.?: No Are you currently unemployed and looking for a job?: No Are you interested in more education?: No Please select the resources that you would like help with: None Currently or been in a relationship where the following occur: No concerns reported THRIVE Score: 0 ISRAEL-7 AMB Questionnaire ISRAEL-7 Date ISRAEL - 7 assessed: 12/11/24 Source: Developed by Drs. Henrique Zapata, Marilynn Pastor, Jose Malcolm and colleagues, with an educational wandy from [employer]. Review of Systems Const Details: Const Denies chills, Denies fatigue, Denies fever(s), Denies headache(s) and Denies weakness ENT Denies dizziness and Denies headache(s) Card Denies chest pain, Denies lightheadedness, Denies dyspnea and Denies other (Palpitations) Resp Denies cough, Denies dyspnea, Denies wheezing and Denies other ( shortness of breath) GI Denies abdominal pain, Denies melena, Denies hematochezia, Denies change in bowel habits, Denies dyspepsia and Denies nausea Denies hematuria and Denies dysuria Musc Denies abnormal gait, Denies myalgias, Denies arthralgias, Denies numbness and Denies tingling Skin/Breast Denies rash, Denies unusual bruising and Denies wounds Neuro Denies abnormal gait, Denies dizziness, Denies headache(s), Denies memory loss, Denies numbness, Denies Sensory deficit (Neuro), Denies tingling and Denies weakness Psych Denies anxiety, Denies depression, Denies memory loss Endo Denies cold intolerance, Denies fatigue, Denies heat intolerance, Denies polydipsia and Denies polyuria Aller/Immun Denies wheezing Physical exam (Primary Care) Vital Signs: Last Vital Signs Temp 97.8 F 01/23/25 10:57 Pulse 89 01/23/25 10:57 Resp 16 01/23/25 10:57 BP 137/94 H 01/23/25 10:57 Pulse Ox 100 01/23/25 10:57 Oxygen Delivery Method Room Air 01/23/25 10:57 BMI result Body Mass Index 28.7 Tobacco/Smoking Status: Tobacco use Status Tobacco use date assessed 01/23/25 01/23/25 11:00 Patient Tobacco Use Status Never used Tobacco 01/23/25 10:53 e-Cigarette/Vaping Use Currently Using 01/23/25 10:53 Thrive Assessment: Date of Thrive Assessment Date Thrive assessed 12/04/24 01/23/25 10:53 Currently or been in a relationship where the following occur: No concerns reported Const Other: General: no acute distress and well developed Nutritional Appearance: well nourished Orientation/consciousness: patient oriented x3 HENMT Head: Yes normocephalic and Yes atraumatic Eyes General: appearance normal, both eyes and all related structures Pupils: Equal, round and reactive pupils present EOM: EOMs intact bilaterally Resp Effort & Inspection: normal respiratory effort Auscultation: clear to auscultation bilaterally Cardio Rate: regular rate Rhythm: regular rhythm Heart sounds: S1 normal heart sound present, S2 normal heart sound present, no gallops, no murmurs and no rubs GI Palpation (GI): No Abdominal aortic bruit present, Soft to palpation, nontender, No hepatosplenomegaly present and No Rebound tenderness present Auscultation: normal bowel sounds General: Yes no CVA tenderness Back/Spine/Pelvis Back: no CVA tenderness Cervical Spine: cervical ROM normal and No Cervical spine tenderness Thoracic/Lumbar Spine: thoraco-lumbar ROM normal, No pain with thoraco-lumbar ROM, No thoracic spinal tenderness and No lumbar spinal tenderness Extrem General: Yes normal to inspection, No edema and No calf tenderness. Moderately engorged veins to the right lower posterior thigh and right calf, no tenderness, erythema, or edema Skin General: warm and dry. Normal skin color. Normal skin turgor Neuro General: patient oriented x3, gait normal and no focal neuro deficit Cranial nerves: Yes Equal, round and reactive pupils present Cognition (Neuro): normal cognition Gait exam (Neuro): Normal gait present Sensory Exam: No Sensory deficit (Neuro) Psych Appearance: grossly normal Affect: normal affect Attitude: cooperative Thought process: Normal thought process present Coding Level of Care Code Est Pt Level 3 (46478) Diagnoses Varicose veins of right lower extremity I83.91 Elevated blood pressure reading in office without diagnosis of hypertension R03.0 Assessment & Plan Assessment & Plan (1) Varicose veins of right lower extremity: Code(s): I83.91 - Asymptomatic varicose veins of right lower extremity Category: Medical Plan: 44-year-old female presents with complaints of painful varicose veins to the back of her right lower thigh and calf. She has had varicose veins for past 20 years with intermittent soreness and achiness. However, her symptoms have been consistent recently with exercising prolonged standing. She rates the pain as moderate. No acute symptoms at this time. Moderately engorged veins to the right lower posterior thigh and right calf, no tenderness, erythema, or edema. Encouraged to wear compressive stockings with exercise, prolonged standing or sitting. Elevate right lower extremity while seated to reduce signs and symptoms. Follow-up with worsening symptoms or with edema or erythema. Verbalized understanding and agreed with the plan. (2) Elevated blood pressure reading in office without diagnosis of hypertension: Code(s): R03.0 - Elevated blood-pressure reading, without diagnosis of hypertension Category: Medical Plan: Resting blood pressure is 140/90, slightly above goal of less than 140/90. Routine exercise and low-sodium diet encouraged. Will monitor blood pressure at her next visit in 1 month. Verbalized understanding and agreed with the plan.
[2025-01-23 10:57] VITALS: BP 137/94; PULSE 89; RESP 16; TEMP 36.6; O2SAT 100; BMI 28.7
[2025-01-23 11:30] VITALS: BP 140/90
--- OUTSIDE RECORDS SUMMARY | 2025-01-23 12:21 | XMS_ITS | Data Portability ---
Author Organization [facility]IM[facility]og [facility], [address] Address [address] [place] [address] Care Team Providers Care Organ Installer Name Role Phone [facility] Primary Care Provider Assessment No assessment recorded. Plan of Treatment Reminders Order Date Submit Date Provider Last Modified By Organization Details Last Modified Time Details Appointments None recorded. Lab SARS CoV 2 (COVID-19) Ag, QL, IA, upper respiratory specimen 2024 025 [email or web address] [facility], [address] [place] [address], [phone], 5 09:07:11 rapid flu (A+B) 2024 025 [email or web address] [facility], [address] [place] [address], [phone], 5 09:07:12 Referral None recorded. Procedures None recorded. Surgeries None recorded. Imaging None recorded. Medication Orders Flonase Sensimist 27.5 mcg/actuati on nasal spray,suspe nsion 2024 025 [address] [facility], [address] [place], [address], 5 09:07:14 doxycycline hyclate 100 mg capsule 2024 025 [address] [facility], [address] [place], [address], 5 09:07:15 Patient TargetsNo targets recorded. Patient Instructions Encounter Date Encounter Id Patient Instructions Last Modified By Organization Details Last Modified Time 10/01/2024 [id number] bronchitis: care instructions [email or web address] Not available 10/01/2024 09:07:11 Reason for Referral None Reported. Results Created Date Observation Date Name Description Value Unit Range Abnormal Flag Note LastModifiedBy Organization Detail LastModifiedTime 10/01/19 25 10/01/2024 rapid flu (A+B) Unknown Analyte negati ve Not Available [address], [address], 10/01/2024 08:47:03 10/01/19 25 10/01/2024 rapid flu (A+B) Unknown Analyte negati ve Not Available [address], [address], 10/01/2024 08:47:03 10/01/19 25 10/01/2024 rapid flu (A+B) Unknown Analyte n Not Available [address] [place] [address], [phone], 10/01/2024 08:47:03 10/01/19 25 10/01/2024 rapid flu (A+B) Unknown Analyte yes Not Available [address] [place] [address], [address], 10/01/2024 08:47:03 10/01/19 25 10/01/2024 SARS CoV 2 (COVI D-19) Ag, QL, IA, upper respi rator y speci men Unknown Analyte negati ve Not Available [address], [address], 10/01/2024 08:46:56 10/01/19 25 10/01/2024 SARS CoV 2 (COVI D-19) Ag, QL, IA, upper respi rator y speci men Unknown Analyte n Not Available [address], [address], 10/01/2024 08:46:56 10/01/19 25 10/01/2024 SARS CoV 2 (COVI D-19) Ag, QL, IA, upper respi rator y speci men Unknown Analyte yes Not Available [address] [place], [address], 10/01/2024 08:46:56 Result Notes None recorded. Problems Name Problem SNOMED Code Status Onset Date Resolution Date Notes Provider Name and Address Organization Details Recorded Time Anxiety 32105223 Active MAXIMINO Velarde - [facility] 10/01/2024 08:43:21 Problem Notes None recorded. Medical Equipment None Reported. Allergies No known drug allergies Medications Name Sig Start Date Stop Date Status Note LastModified by Organization Details LastModified Time venlafaxine ER 37.5 mg capsule,exte nded release 24 hr TAKE ONE CAPSULE BY MOUTH EVERY DAY active Not Available Not Available No t Available doxycycline hyclate 100 mg capsule Take 1 capsule twice a day by oral route for 10 days. 2024 active Not Available Not Available Not Avai lable paroxetine 10 mg tablet TAKE ONE TABLET BY MOUTH EVERY DAY 10/01 completed Not Available Not Available Not Available benzonatate 100 mg capsule TAKE ONE CAPSULE BY MOUTH TWICE A DAY NEEDED FOR COUGH 10/01 completed Not Available Not Available Not Available Flonase Sensimist 27.5 mcg/actuatio n nasal spray,suspen debby Take 1 spray every day by nasal route. 2024 active Not Available Not Available Not Avai lable Vitals Date Recorded Body height Body mass index (BMI) Body weight Oxygen saturation Oxygen saturation in Arterial blood by Pulse oximetry Pain severity - 0-10 verbal numeric rating [Score] - Reported Heart rate Respiratory rate Body temperature Systolic blood pressure Diastolic blood pressure Provider Name and Address Organization Details Last Updated DateTime 152.4 cm 29.3 kg/m2 83568.8 6 g 99 % 99 % 5 95 /min 21 /min 99 [degF] 126 mm[Hg] 79 mm[Hg] Neri STANTON - [facility] 08:41:32 Social History Question Answer Notes LastModified by Organizat ion Details LastModified Time Tobacco Smoking Status Former Smoker MAXIMINO Velarde - [facility] 10/01/2024 08:45:18 What Is Your Level Of Alcohol Consumption? Occasional Information not available 10/01/2024 Are You Currently Employed? Yes Information not available 10/01/2024 Which Illicit Or Recreational Drugs Have You Used? Cannabis Information not available 10/01/2024 When Did You Quit Smoking? 1-5yearssincel astcigarette Information not available 10/01/2024 Have You Had A Flu Shot This Season? Yes Information not available 10/01/2024 If No, Would You Like A Flu Shot Today? No Information not available 10/01/2024 What Is Your Water Source? City Information not available 10/01/2024 What Is Your Heat Source? Other Information not available 10/01/2024 What Is Your Relationship Status? Information not available 10/01/2024 Are You Passively Exposed To Smoke? No Information not available 10/01/2024 Do You Use Any Illicit Or Recreational Drugs? Yes Information not available 10/01/2024 How Many Years Have You Smoked Tobacco? 20 Information not available 10/01/2024 Do You Or Have You Ever Used Any Other Forms Of Tobacco Or Nicotine? No Information not available 10/01/2024 Sex: Unknown Functional Status None recorded. Mental Status None recorded. Family History Relationship Description Onset Age of this Age Resolved Age Notes LastModified by Organization Details LastModified Time Father Hypertensive disorder [email or web address] ez Not available 10/01/2024 08:43:49 Medical History No medical history recorded. Gynecological History Statement/Question Response Is there any chance of ? No Obstetrics History GPAL:G 0 P 0 0 0 0 Immunizations Vaccine Type Date Status Note Provider Nam e and Address Organization Details Recorded Time COVID-19, mRNA, LNP-S, PF, 30 mcg/0.3 mL dose 11/06/2020 completed Neri Mascorro Ceferino null, [place] - [facility] 10/01/2024 08:42:14 COVID-19, mRNA, LNP-S, PF, 30 mcg/0.3 mL dose 11/27/2020 completed Neri Mascorro Ceferino null, [place] - [facility] 10/01/2024 08:42:14 COVID-19, mRNA, LNP-S, PF, 30 mcg/0.3 mL dose 07/29/2021 completed Neri Mascorro Ceferino null, [place] - [facility] 10/01/2024 08:42:14 Tdap 08/24/2024 completed Neri Mascorro Ceferino null, [place] - [facility] 10/01/2024 08:42:14 Influenza, split virus, trivalent, PF 08/24/2024 completed Neri Mascorro Ceferino null, [place] - [facility] 10/01/2024 08:42:14 Influenza, split virus, quadrivalent, PF 07/30/2020 completed Neri Mascorro Ceferino null, [place] - [facility] 10/01/2024 08:42:14 Past Encounters Encounter ID Performer Location Encounter Start Date Encounter Closed Date Diagnosis/Indication Diagnosis SNOMED-CT Code Diagnosis ICD10 Code Diagnosis Note [id number] [facility] [address] [address] 10/14/2016 15:53:01 10/14/2016 17:17:01 [id number] [facility] [address] [place] [address] 07/06/2022 14:38:16 07/06/2022 16:36:41 [id number] Cesar Gallardo [place] [address] [address] 10/01/2024 08:23:21 10/01/2024 09:10:48 Cough 70066362 R05.9 Given Hx and Sx will Rx AbxNasal sprayTrial of mucinex prn congestion Humidified airrest, fluidstyle nol/ibu prn Patient advised to follow up as needed for worsening symptoms or no improvemen t. Discussed concerning red flags with patient and reasons to follow up in the Emergency Department urgently. Health Concerns Section Related Observation LastModified by Organization Detai ls LastModified Time None Recorded Concern Status LastModified by Organization Details LastModified Time None Recorded Advance Directives Directive None Recorded Payers Encounter Date Sequence Insurance Name Policy Number Policy Roberson Covered Member ID Roberson Member ID Guarantor Name 10/14/2016 1 [facility] [place] [place] [id number] Laura L Taglieri [id number] Laura Taglieri 07/06/2022 1 [facility] [place] [facility] [place] [id number] Laura L Taglieri [id number] Laura Taglieri 10/01/2024 1 [facility] [place] [place] Laura L Billylieri [id number] Laura Taglieri Notes Date Note Type Note Provider Name and Address Organization Details Recorded Time 10/01/2024 text/html CoughReported bypatient.Notes:44 yo female c/o fever, productive cough, runny nose, malaise, x2 weeks, worse over last 2 days TMax 102last temp yesterday no asthmaformer smoker No chillsNo nauseaNo vomitingNo coughNo wheezeNo difficulty breathing or respiratory distressNo CPNo congestionNo sinus painNo ear painNo sore throatNo Abdominal painNo diarrheaNo myalgiaNo fatigueNo rashNo HANo dizzinessNo recent travel daugther has the flu Cesar Gallardo, DO [address] [place], [address], [place] - [facility] 10/01/2024 09:08:57 OBGyn Episode No OBEpisode recorded.
--- OUTSIDE RECORDS SUMMARY | 2025-01-23 12:22 | XMS_ITS | Data Portability ---
Author Organization [facility] Home Service Address [address] [facility] [place] [address] Assessment Encounter Date Assessment Date Assessment LastModified by Organization Details LastModified Time 11/14/2021 11/14/2021 Patient agreed and verbally consents to this audio and video Telehealth appt via a secure platform [email or web address] Not available 11/14/2021 15:39:08 09/29/2023 09/29/[address] [id number] [place] [id number] ([address] OF [address]) : MDM LOW MUST MEET 2 OF 3 ELEMENTS: PROBLEMS, DATA OR RISK ELEMENT 1: PROBLEMS ADDRESSED (LOW): 2 OR MORE SELF-LIMITED OR MINOR PROBLEMS OR 1 STABLE CHRONIC ILLNESS OR 1 ACUTE UNCOMPLICATED ILLNESS OR INJURY ELEMENT 2: DATA TO BE REVISED AND ANALYZED (LOW) MUST MEET 1 OF 2 CATEGORIES: CATEGORY 1. REVIEW OF PRIOR EXTERNAL NOTES/RESULTS, ORDERING OF TEST(S) CATEGORY 2. ASSESSMENT REQUIRING INDEPENDENT HISTORIAN(S) INCLUDE WHO THE HISTORIAN IS AND RELATION TO PT AND WHY PT IS UNABLE TO GIVE COMPLETE HISTORY ELEMENT 3: RISK (LOW) RISK OF COMPLICATIONS AND/OR MORBIDITY OR MORTALITY OF PATIENT MANAGEMENT PROVIDER MUST THOROUGHLY DOCUMENT ALL OF THE ELEMENTS COVERED [email or web address] Not available 09/29/2023 15:43:00 Plan of Treatment Reminders Order Date Submit Date Provider Last Modified By Organization Details Last Modified Time Details Appointments None recorded. Lab estradiol, serum 2023 024 [facility] (Centralized Electronic Ordering - All Locations), Patient Can Go To The Location Of Their Choice, [id number] 10:28:32 progestero ne, serum 2023 024 [facility] (Centralized Electronic Ordering - All Locations), Patient Can Go To The Location Of Their Choice, 10:28:31 lh + FSH, serum 2023 024 [facility] (Centralized Electronic Ordering - All Locations), Patient Can Go To The Location Of Their Choice, 10:28:31 estrogen, total, serum 2023 024 [facility] (Centralized Electronic Ordering - All Locations), Patient Can Go To The Location Of Their Choice, 10:28:31 prolactin, serum 2023 024 [facility] (Centralized Electronic Ordering - All Locations), Patient Can Go To The Location Of Their Choice, 10:28:32 testostero ne, total, serum 2023 024 [facility] (Centralized Electronic Ordering - All Locations), Patient Can Go To The Location Of Their Choice, 10:28:31 TSH + free T4, serum 2023 024 [facility] (Centralized Electronic Ordering - All Locations), Patient Can Go To The Location Of Their Choice, 10:28:32 CBC w/ auto diff 2023 [facility] (Centralized Electronic Ordering - All Locations), Patient Can Go To The Location Of Their Choice, 10:28:31 lipid panel, blood 2023 [facility] (Centralized Electronic Ordering - All Locations), Patient Can Go To The Location Of Their Choice, 10:28:31 vitamin D, 25-hydroxy , total, serum 2023 024 [facility] (Centralized Electronic Ordering - All Locations), Patient Can Go To The Location Of Their Choice, 10:28:31 CMP, serum or plasma 2023 RAY [facility] (Centralized Electronic Ordering - All Locations), Patient Can Go To The Location Of Their Choice, [id number] 4 07:08:50 hemoglobin A1c, QN, blood 2023 024 [facility] (Centralized Electronic Ordering - All Locations), Patient Can Go To The Location Of Their Choice, [address] 4 10:28:31 vitamin B12 + folate, serum or blood 2023 024 [facility] (Centralized Electronic Ordering - All Locations), Patient Can Go To The Location Of Their Choice, [id number] 4 10:28:31 CMP, serum or plasma 2019 020 [facility], [address] [place] [address], [place], [address], 0 15:51:10 lipids, total, serum 2019 020 [facility], [address] [place] [address], [place], [address], 0 15:51:10 CBC w/ auto diff 2019 020 [facility], [address] [place] [address], [place], [address], 0 15:51:10 Referral None recorded. Procedures None recorded. Surgeries None recorded. Imaging MRI, ankle, w/o contrast - Not Required Procedure codes: 05024Hzys Reference #: [id number] 3Resolutio n: Completed on 05/03/2024 at 11:11 am. Call ref #[id number] 33. 2023 024 [email or web address] Not available 4 08:39:01 XR, foot, 3 or more view 2021 022 RAY Not available 2 14:23:15 Medication Orders azithromyc in 250 mg tablet 2023 024 [place] [address] [facility], [address] [place], [address], 4 10:05:21 venlafaxin e ER 37.5 mg capsule,ex tended release 24 hr 2021 022 RAY [facility], [address] [facility], [place], [address], 11:32:38 Patient TargetsNo targets recorded. Patient InstructionsNo instructions recorded. Reason for Referral None Reported. Results Created Date Observation Date Name Description Value Unit Range Abnormal Flag Note LastModifiedBy Organization Detail LastModifiedTime 06/26/2006/26/2020 MAMMO , diagn ostic , digit al, bilat eral No observ ation record ed. [email or web address] [place] [address], [id number], 06/26/2020 16:05:34 06/30/20 21 06/30/2021 MAMMO , scree yakelin, digit al, bilat eral No observ ation record ed. [email or web address] [facility] [address] [place] [address], [id number], 06/30/2021 09:00:09 11/25/19 22 11/24/2021 XR, foot, 3 or more view No observ ation record ed. [email or web address] [facility] [address] [place] [address], [id number], 11/25/2021 10:55:50 07/06/20 22 07/03/2022 MAMMO , scree yakelin, digit al, bilat eral No observ ation record ed. [email or web address] [facility] [address] [place] [address], [id number], 07/07/2022 08:15:42 07/08/20 23 07/05/2023 MAMMO , scree yakelin, digit al, bilat eral No observ ation record ed. [email or web address] [facility] [address] [place] [address], [id number], 07/08/2023 14:12:28 Result Notes None recorded. 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 MAXIMINO BACK [address] [place], [address], [facility] 4 10:20:24 Pain of left ankle joint 84381900442 609825 Active 2023 MAXIMINO BACK [address] [place], [address], [facility] 4 10:26:12 Eczema 57524807 Active 2017 Not Available [facility] 3 10:38:38 Rosacea 968345792 Active 2017 Not Available [facility] 3 10:38:38 Umbilica l hernia 324786855 Active 2017 Not Available [facility] 3 10:38:38 Mood disorder 84956205 Active 2017 Not Available [facility] 3 10:38:38 Fracture of bone 883329608 Active 2017 fingers left hand Not Available [facility] 3 10:38:38 Bunion 813711012 Active 2017 Not Available [facility] 3 10:38:38 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 Procedures Surgical History None recorded. Imaging Results Imaging Date Name Status LastModified by Organiz ation Details LastModified Time 06/26/2020 MAMMO, diagnostic, digital, bilateral completed [email or web address] [address], [address], 06/26/2020 16:05:34 06/30/2021 MAMMO, screening, digital, bilateral completed [email or web address] [facility] [address] [place] [address], [id number], 06/30/2021 09:00:09 11/24/2021 XR, foot, 3 or more view completed [email or web address] [facility] [address] [place] [address], [address], 11/25/2021 10:55:50 07/03/2022 MAMMO, screening, digital, bilateral completed [email or web address] [facility] [address] [place] [address], [id number], 07/07/2022 08:15:42 07/05/2023 MAMMO, screening, digital, bilateral completed [email or web address] [facility] [address] [place] [address], [id number], 07/08/2023 14:12:28 Procedure Notes None recorded. Medical Equipment None Reported. Allergies No known drug allergies Medications Name Sig Start Date Stop Date Status Note LastModified by Organization Details LastModified Time venlafaxine ER 37.5 mg capsule,ext ended release 24 hr TAKE ONE CAPSULE BY MOUTH EVERY DAY 2023 active Not Available Not Available Not Avai lable paroxetine 10 mg tablet TAKE ONE TABLET BY MOUTH EVERY DAY 2023 active Not Available Not Available Not Avai lable azithromyci n 250 mg tablet TAKE 2 TABLETS BY MOUTH ONCE DAILY FOR 1 DAY, THEN 1 TABLET BY MOUTH ONCE DAILY FOR 4 DAYS 04/25 completed Not Available Not Available Not Available ibuprofen 800 mg tablet 04/25 completed Not Available Not Available Not Available bupropion HCl SR 100 mg tablet,12 hr sustained-r elease TAKE 1 TABLET BY MOUTH ONCE A DAY DIRECTED 12/05 completed Not Available Not Available Not Available lorazepam 0.5 mg tablet TAKE 1 TABLET BY MOUTH TWICE A DAY NEEDED 12/05 completed Not Available Not Available Not Available IBU 600 mg tablet 04/25 completed Not Available Not Available Not Available neomycin-po lymyxin-dex ameth 3.5 mg/mL-10,00 0 unit/mL-0.1 % eye drops 04/04 completed Not Available Not Available Not Available calcium Take one tablet once a day active Not Available Not Available No t Available multivitami n Take one tablet once a day active Not Available Not Available No t Available diclofenac 1 % topical gel APPLY 4 GRAMS TOPICALLY FOUR TIMES A DAY NEEDED FOR PAIN active Not Available Not Available No t Available Vitals Date Recorded Body height Body mass index (BMI) Body weight Heart rate Oxygen saturation Oxygen saturation in Arterial blood by Pulse oximetry Systolic blood pressure Diastolic blood pressure Provider Name and Address Organization Details Last Updated DateTime 0 154.94 cm 25.3 kg/m2 20317.0 2 g 76 /min 98 % 98 % 110 mm[Hg] 60 mm[Hg] Raiza [facility] 0 15:36:49 Date Recorded Body height Body mass index (BMI) Body weight Oxygen saturation Oxygen saturation in Arterial blood by Pulse oximetry Heart rate Systolic blood pressure Diastolic blood pressure Provider Name and Address Organization Details Last Updated DateTime 2 154.94 cm 26.1 kg/m2 24155.7 5 g 99 % 99 % 94 /min 128 mm[Hg] 80 mm[Hg] Becki Lambert [facility] 2 11:17:39 Date Recorded Body height Body mass index (BMI) Body weight Heart rate Oxygen saturation Oxygen saturation in Arterial blood by Pulse oximetry Systolic blood pressure Diastolic blood pressure Provider Name and Address Organization Details Last Updated DateTime 4 154.94 cm 26.1 kg/m2 79042.7 5 g 88 /min 98 % 98 % 130 mm[Hg] 78 mm[Hg] Anusha Michelle [facility] 4 10:07:54 Social History Question Answer Notes LastModified by Organizat ion Details LastModified Time Tobacco Smoking Status Former Smoker Not Available [facility] 07/23/2020 03:36:24 What Was The Date Of Your Most Recent Tobacco Screening? 04/25/2024 [email or web address] Information not available 04/25/2024 How Many Years Have You Smoked Tobacco? 20 [id number] Information not available 07/23/2020 Do You Or Have You Ever Used Any Other Forms Of Tobacco Or Nicotine? No [email or web address] Information not available 04/25/2024 Sex: Unknown Functional Status None recorded. Mental Status None recorded. Family History Nothing Reported. Medical History No medical history recorded. Gynecological History Statement/Question Response LMP Unknown Obstetrics History GPAL:G 0 P 0 0 0 0 Immunizations Vaccine Type Date Status Note Provider Nam e and Address Organization Details Recorded Time COVID-19, mRNA, LNP-S, PF, 30 mcg/0.3 mL dose 1 completed Becki douglas [facility] 06/23/2022 08:47:25 COVID-19, mRNA, LNP-S, PF, 30 mcg/0.3 mL dose 1 completed Becki douglas [facility] 06/23/2022 08:47:32 COVID-19, mRNA, LNP-S, PF, 30 mcg/0.3 mL dose 1 completed Becki douglas [facility] 06/23/2022 08:47:41 Influenza, split virus, quadrivalent, preservative 0 completed Becki douglas [facility] 06/23/2022 08:48:01 Past Encounters Encounter ID Performer Location Encounter Start Date Encounter Closed Date Diagnosis/Indication Diagnosis SNOMED-CT Code Diagnosis ICD10 Code Diagnosis Note [id number] Sacha Choi [facility] [address] [facility],[place] [address] 01/10/2018 15:14:04 01/10/2018 15:45:05 Anxiety 01729878 F41.9 continue PRN lorazepam, keep appt with Salvador Akins [facility] Sunburn of first degree 881134630 L55.0 OTC aloe, carry and use sunscreen when out doors [id number] Sacha Choi [facility] [address] [facility], [place] [address] 04/04/2018 10:46:30 04/04/2018 11:55:10 Atypical chest pain 743621442 R07.89 unlikely acs in this low risk patient if cp changes quality/be comes suddenly severe/cru shing go to ed - pt understood , though I have low suspicion of this Diarrhea 55851522 R19.7 would recommend seeing GI for chronic diarrhea Gastroesop hageal reflux disease 503307200 K21.9 probable cause of chest pain in setting of normal ekg recommend daily prilosec for 2 weeks in addition to low acid diet [id number] Sacha Choi [facility] [address] [facility],[place] [address] 11/30/2018 15:34:17 11/30/2018 16:34:30 Hallux valgus AND bunion 839546395 M20.11 Bunion 715349229 M21.61 2 Varicose v eins of lower extremity 72149165 I83.91 Mood disorder 71122774 F 39 continue healthy activity [id number] Sacha Choi [facility] [address] [facility], [place] [address] 12/06/2019 15:24:04 12/06/2019 15:48:10 Adult health examination 248274874 Z00.00 Active or passive immunization 914695276 Z23 tdap thinks in ER approx 2013 [id number] Sacha Choi [facility] [address] [facility], [place] [address] 11/14/2021 08:06:05 11/17/2021 16:55:55 Pain in right foot 7094923194 54820 M79.671 will fu with repeat XRs and fu with MRI as well after XRs are completed Mood disorder 97105465 F 30.10 stable Bunion 083395146 M21.61 1 stable [id number] Sacha Choi [facility] [address] [facility],[place] [address] 06/23/2022 11:12:39 06/23/2022 11:46:05 Anxiety 38387718 F41.1 will start on venlafaxin e [id number] Sacha Choi [facility] [address] [facility],[place] [address] 09/29/2023 07:58:27 09/29/2023 16:37:47 Atypical pneumonia 821561914 J18.9 post viral illness prob was rsv and now with atypical pneumonia [id number] DO [facility] [address] [address],[place] [address] 04/25/2024 09:59:25 04/25/2024 11:12:44 Depression screening 439615400 Z13.31 negative Adult heal th examination 113429613 Z00.00 will set up with BW 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 agreed to bw Pain of le ft ankle joint 9474119417 1038562 M25.572 will set up with MRI Health Concerns Section Related Observation LastModified by Organization Detai ls LastModified Time None Recorded Concern Status LastModified by Organization Details LastModified Time None Recorded Advance Directives Directive None Recorded Payers Encounter Date Sequence Insurance Name Policy Number Policy Roberson Covered Member ID Roberson Member ID Guarantor Name 12/06/2019 1 [place] [facility] [place] [id number] Laura L Taglieri [id number] Laura Taglieri 11/14/2021 1 [place] [facility] [place] [id number] Laura L Taglieri [id number] Laura Taglieri 06/23/2022 1 [place] [facility] [place] [id number] Laura L Taglieri [id number] Laura Taglieri 09/29/2023 1 [place] [facility] [place] [id number] Laura L Taglieri [id number] Laura Taglieri 04/25/2024 1 [place] [facility] [place] [id number] Laura L Taglieri [id number] Laura Taglieri Notes Date Note Type Note Provider Name a nd Address Organization Details Recorded Time 0 text/html Annual WellnessReported bypatient.Diet and Nutrition:healthy diet; discussed vitamin and supplement use Fracture Risk:no recent explained fracture Physical Activity:exercises on a regular basis Additional Lifestyle Factors:no tobacco use; drinks alcohol (mild-moderate) Depression Risk:history of depression(not on meds, feels under control) Hearing:no loss of hearing Vision:no vision problems Nohelia JAVIER Jones [address] [facility], [place], [address], [facility] 12/06/2019 15:47:43 2 text/html c/o right foot pain x years telemedicine phone callpatient consents to phone call the patient reports for the past couple of years she has had right foot painthe patient reports that pain in the morning is in the along the arch of her foot and spread to the ball of her foot when she starts when she puts pressure on her foot is when the pain intensifiesthe patient reports when she walks around, she states that pain radiates into the ankle the patient reports that she used to run but it causes the pain to increasepain is related to pressure she exerts on the foot the patient reports pain is a mixture between sharp and burning the patient reports that she does not get pain in the knee or elsewhere in the leg the patient has seen podiatryconsult note reports arthritis and a bunion, discussed surgery which ultimately they did not pursue due to the fact it wasn't as painful at the time and the bunion was minimal given this was three years ago and patient has not had a work up since I suggested new XRs possible worsening degeneration in the foot and worsening buniongiven the pain is along her arch and top of her foot, if the gait has shifted in her stance and where she puts the pressure it is possible she has either a falling arch or is causing stress fractures in her foot plantar fasciitis cannot be excluded as a diagnosis either no sensation of a rock or marble in her foot, and the pain is not localized to the ball of her foot making diagnosis of koch's neuroma unlikely has tried OTC medication like NSAIDs and APAP which do alleviate the pain MAXIMINO BACK [address] [facility], [place], [address], [facility] 11/14/2021 15:51:09 2 text/html f/u anxiety and depression the patient reports that due to 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 job 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 the patient reports that she was on prozac and on wellbutrin as wellthe patient was on them at different times discussed alternatives because prozac made her sleepy the second time she was on it discussed how they work and what I feel would help her the mostdecided on effexor MAXIMINO BACK [address] [place], [address], [facility] 06/23/2022 11:39:28 4 text/html patient is evaluated via tele/video assessment per patient consent during current pandemic has been sick for the last 40 days on off and nasal congestion and cough and chest congestion Sacha Choi DO [address] [place], [address], [facility] 09/29/2023 15:44:57 4 text/html Annual WellnessReported bypatient.Diet and Nutrition:healthy diet; discussed vitamin and supplement use; discussed portion control; discussed maintaining calcium balance; discussed diet improvement Fracture Risk:no history of fractures; no recent explained fracture; no sudden unexplained fractures; no previous musculoskeletal injuries Physical Activity:exercises on a regular basis; recent increase in physical activity; good physical condition; discussed weightbearing activities; discussed exercise habits Additional Lifestyle Factors:no tobacco use; drinks alcohol (mild-moderate) Depression Risk:never feels sad, empty, or tearful; no loss of interest in activities; no significant changes in weight; no sleep disturbances or insomnia; no agitation; no loss of energy; no feelings of worthlessness or guilt; no thoughts of suicide; no history of depression; no history of mood disorders Hearing:no loss of hearing Vision:no vision problems MAXIMINO BACK [address] [place], [address], [facility] 04/25/2024 10:40:07 OBGyn Episode No OBEpisode recorded.
--- OUTSIDE RECORDS SUMMARY | 2025-01-23 12:22 | XMS_ITS ---
Author Organization [facility] Hanna D[facility]azley Address [address] [place] [address] Care Team Providers Care Automatic Print Developer Name Role Phone Gary RADIO INTERFERENCE TROUBLE SHOOTER, Ryan Primary Care Provider Unavail able Scott Lemos Unavailable [phone] Allergies No Known Allergies REASON FOR VISIT Foot pain Medications Medication SIG (Take, Route, Frequency, Duration) Notes Start Date End Date Status LORazepam 1 MG Orally Not-T aking Calcium Not-Taking Venlafaxine HCl 37.5 MG 1 tablet with fo od Orally Once a day for 30 day(s) Active Wellbutrin 10 mg Not -Taking Multivitamin Not-Omid ing Social History Tobacco Use: Social History Observation Description Date Details (start date - stop date) Never Smoker NA - NA Alcohol Screen Question Answer Notes Did you have a drink containing alcohol in the p ast year? Yes Points 0 Interpretation Negative Tobacco use other than smoking: Question Answer Notes Are you an other tobacco user? Yes Tobacco Control (Standard) Question Answer Notes Tobacco use: Nonsmoker Additional Findings: Tobacco non-user Current no nsmoker AUDIT-C (Standard) Question Answer Notes Did you have a drink contain ing alcohol in the past year? Yes How often did you have six o r more drinks on one occasion in the past year? 2 to 3 times per week (3 points) How many drinks did you have on a typical day when you were drinking in the past year? Declined to specify (0 point) How often did you have a dri nk containing alcohol in the past year? Declined to specify (0 point) Points 3 Interpretation Positive Problems Problem Type SNOMED Code ICD Code Onset Dates Problem Status W/U Status Risk Notes Problem Acquired hallux valgus (09402111) Hallux valgus (acquired), left foot (M20.12) Active confirmed Problem Acquired hallux valgus (09345696) Hallux valgus (acquired), right foot (M20.11) Active confirmed Vital Signs Height 5ft1in in 09/19/2024 Weight 150 lbs 09/19/2024 BMI 28.34 kg/m2 09/19/2024 Blood pressure systolic 140 mm Hg 09/19/20 24 Blood pressure diastolic 85 mm Hg 024 Encounters Encounter Location Date Provider Diagnosis [facility] [address] [place] [address] 09/19/2024 Scott Lemos Pain in left ankle and joints of left foot M25.572 ; Hallux valgus (acquired), left foot M20.12 ; Pain in right ankle and joints of right foot M25.571 and Hallux valgus (acquired), right foot M20.11 Assessments Encounter Date Diagnosis (ICD Code) Assessment Notes Treatment Notes Treatment Clinical Notes Section Notes 09/19/2024 Pain in left ankle and joints of left foot (ICD-10 - M25.572) 09/19/2024 Hallux valgus (acquired), left foot (ICD-10 - M20.12) 09/19/2024 Pain in right ankle and joints of right foot (ICD-10 - M25.571) 09/19/2024 Hallux valgus (acquired), right foot (ICD-10 - M20.11) Plan Of Treatment Next Appt Details Follow Up: prn, Reason: Progress Notes * Laura DONIS LDOB:[birth year] (44 yo F)Acc No.[id number]:09/19/2024 Progress Note Patient:?AUGUSTOMARISAMaria GuadalupeLaura Daniel Provider:?Scott Lemos DPM :1980???Age:44 Y???Sex:Female D ate:09/19/2024 Address:[address] [place] [address] [facility] [id number] Pcp:Ryan Vega NP Subjective: * Chief Complaints: * ???Foot pain * HPI: ???Foot Pain:?Location:?Inside, Great toe joint, B/L.?Duration:?several years.?Aggravated:?any pressure.?Treatments:?rest/alter normal daily activity, change in shoes.? * ROS:?General/Constitutional:?Nausea?denies.?Vomiting?denies.?Hunger Thirst?denies.?Loss appetite?denies.?Chills?denies.?Fatigue?denies.?Fever?denies.?Night Sweats?denies.?Unexplained weight loss?denies.?Unexplained weight gain?denies.?HEENTM:?Dentures?denies.?Dizziness?denies.?Glasses/contacts?admits.?Retinopathy?de nies.?Blurred/double vision?denies.?TMJ?denies.?Discharge/drainage?denies.?Implants?denies.?Sore throat?denies.?Dental implants?denies.?Hard of hearing ?denies.?Difficulty chewing/swallowing/speaking?denies.?Nose bleeds?denies.?Sore mouth?denies.?Respiratory:?On Oxygen?denies.?Pneumonia/pleurisy?denies.?Bronchitis?denies.?Emphysema?denies.?C oughing?denies.?Cough blood?denies.?Shortness of breath?denies.?Wheezing?denies.?Cardiovascular:?Pacemaker?denies.?MVP?denies.?WPW?denies.?CHF?denies.?Heart attack?denies.?Septal defect?denies.?Rapid beat?denies.?Chest pain ?denies.?Atrial Fib.?denies.?Murmur/Palpitations?denies.?Gastrointestinal:?Hemorrhoids?denies.?Stomach/Abdominal pain?denies.?Dark blood stool?denies.?Irritable bowel ?denies.?Constipation?denies.?Diarrhea?denies.?Hematology:?Swelling?denies.?Clots?denies.?Varicose Veins?denies.?Bruising?denies.?Bleeding problem?denies.?Genitourinary:?Blood urine?denies.?Frequent/Painfu/urination/bladder control?denies.?Kidney stones?denies.?Infection (UTI)?denies.?Nephropathy?denies.?sex trans dis (STD)?denies.?Prostate?denies.?Musculoskeletal:?Hammertoes?denies.?Bunions?admits.?Back Pain?denies.?Muscle Cramps/ Resting?denies.?Muscle cramps / walking?denies.?Generalized aches and pains?denies.?Weakness?denies.?Integ.:?Choudhary?denies.?Scars?denies.?Corns/calluses?denies.?Ingrown nails?denies.?Painful nails?denies.?Open Sores?denies.?Rashes?denies.?Neurologic:?Difficulty sleeping?denies.?Brain disorder?denies.?Numbness?denies.?Balance trouble?denies.?Confusion?denies.?Fainting/blackouts?denies.?Tingling?denies.?Tr emors?denies.? * Medical History:? * Surgical History:?Meniscus r epair 2008umbilical hernia repair 2006knee surgery * Hospitalization/Major Diagno stic Procedure:?Denies Past Hospitalization * Family History:?Mother: dece ased, poor circulation.?Father: alive, high blood pressure, high cholesterol, diabetes, diagnosed with Other malignant neoplasm of unspecified site, Diabetic - NIDDM, Unspecified essential hypertension.?Paternal Grand Mother: foot problems, diagnosed with Other malignant neoplasm of unspecified site, Family history of arthritis.?Paternal Grand Father: poor circulation, diagnosed with Other malignant neoplasm of unspecified site, Diabetic - NIDDM.?Maternal Grand Mother: foot problems, diagnosed with Other malignant neoplasm of unspecified site, Family history of arthritis.?Maternal Grand Father: prostate cancer, diagnosed with Other malignant neoplasm of unspecified site.?Spouse: alive.? * Social History:?Tobacco Use:?Tobacco use other than smoking?Are you an other tobacco user??Yes ?Tobacco Control (Standard)?Tobacco use:?Nonsmoker ?Additional Findings: Tobacco non-user?Current nonsmoker ???Drugs/Alcohol:?Drugs?Have you used drugs other than those for medical reasons in the past 12 months??Yes THC Tincture ?Alcohol Screen?Did you have a drink containing alcohol in the past year??Yes ?Points?0 ?Interpretation?Negative ???Drug/Alcohol:?AUDIT-C (Standard)?Did you have a drink containing alcohol in the past year??Yes ?How often did you have six or more drinks on one occasion in the past year??2 to 3 times per week (3 points) ?How many drinks did you have on a typical day when you were drinking in the past year??Declined to specify (0 point) ?How often did you have a drink containing alcohol in the past year??Declined to specify (0 point) ?Points?3 ?Interpretation?Positive * Medications:?TakingVenlafaxi ne HCl 37.5 MG Tablet 1 tablet with food Orally Once a day Taking Venlafaxine HCl 37.5 MG Tablet 1 tablet with food Orally Once a day Not-Taking/PRNCalcium LORazepam 1 MG Tablet Orally Multivitamin Wellbutrin 10 mg Medication List reviewed and reconciled with the patientNot-Taking/PRN Calcium Not-Taking/PRN LORazepam 1 MG Tablet Orally Not-Taking/PRN Multivitamin Not-Taking/PRN Wellbutrin 10 mg Medication List reviewed and reconciled with the patient * Allergies:?N.K.D.A.yes[Aller gies Verified] Objective: * Vitals:?Ht: 5ft1in, Wt:150, BMI:28.34, Shoe size: 7.5, BP:140/85mm Hg, Ht-cm: 154.94 cm, Wt-k.04 kg. * Examination: ???Orthopedic: ?MUSCLE STRENGTH:?5/5 all groups in a symmetrical fashion , B/L.?BUNION:? Medially prominent 1st MPJ, (+) Pain on palpation, inflammation present medially, Lateral tracking 1st MPJ incompletely reducible, B/L.?Neurological: ?SENSORY:?Neurological exam reveals intact sensorium, pain sensation normal, vibration sensation intact, pinprick sensation is normal in the lower extremities, Pt denies, anesthesia, burning, paresthesia, tingling, B/L.?TINEL'S COMPRESSION:? Negative, Saphenous nerve distribution, B/L.?DEEP TENDON REFLEXES:?Achilles, 2/4, B/L.?General Examination: ?GENERAL APPEARANCE:?Reveals a pleasant, alert, well-nourished, well- developed, well hydrated individual, who demonstrates proper attention to hygiene/body habitus, and is in no acute distress, Pt serves as own?historian for office visit today.?ORIENTED:?person, place, and time.?Vascular: ?DP PULSES (B):?3/4, B/L.?PT PULSES (B):?3/4, B/L.?CAPILLARY FILL TIME:?immediate, all digits, B/L.?TROPHIC CONDITION-TEXTURE/ELASTICITY/TURGOR/HAIR GROWTH (B):?normal, B/L.?TEMPERTURE GRADIENT (C):?warm to cool, proximal to distal, B/L.?PIGMENTATION:?normal, B/L.?EDEMA (C):?absent, B/L.?Dermatologic: ?SKIN FINDINGS:?Skin exam reveals normal texture, elasticity, and turgor. There are no masses. The interspaces are clear.? Assessment: * Assessment: 1.?Pain in left ankle and kimberly ints of left foot - M25.572???2.?Hallux valgus (acquired), left foot - M20.12 (Primary)???Specify :Chronic problem, Stable (1=3,2=4)???3.?Pain in right ankle and joints of right foot - M25.571???4.?Hallux valgus (acquired), right foot - M20.11???Specify :Chronic problem, Stable (1=3,2=4)??? Plan: * Treatment: * Procedure Codes:? * Preventive Medicine:? ??Counseling:?Discussion:?-13: Office or other outpatient visit for the evaluation and management of an established patient, which required a medically appropriate history and/or examination and LOW level of DECISION MAKING for: 1 STABLE ACUTE UNCOMPLICATED PROBLEM, 2 OR MORE MINOR PROBLEMS, OR 1 STABLE CHRONIC PROBLEM, THAT POSE(S) A LOW RISK FOR MORBIDITY/MORTALITY. The visit on the day of the encounter encompassed interpreting the data and educating the patient as to the nature of their condition, treatment options available according to their individual PMH, meds, allergies, and overall health/living conditions, as well as any potential risks or complications that may occur from a failure to adhere to, and participate in, the recommended course of therapy. The discussion included a complete verbal, and/or written explanation of the examination results, any x-rays taken, the proposed diagnosis, and outline of the treatment plan. A schedule for future care needs was also explained. The patient verbalized an understanding of the instructions at this time and agreed to be an active participant in their treatment. If the patient should think of any questions or concerns after the visit, I have encouraged the patient to call the office.?Digital Treatment:?HV - I explained to the patient the risks/benefits of all the different treatment options for their pain including: No treatment at all, Rest, Ice, New/supportive/wider/deeper Shoe gear, Digital Padding/Strapping/Taping/Bracing/Gel protective sleeves, Foot/Ankle AFO Bracing, Stretching exercises, Deep Tissue Massage, Arch support/shoe inserts with splay metatarsal padding, and Custom orthoses. I insisted that any digital devices be removed daily and not worn overnight for safety. The patient is to carefully examine the toes daily for any skin irritation while using any splinting or padding device. The advantages and disadvantages of each option were discussed and the patients questions re: shoe gear, padding, custom vs prefabricated inserts, activity level, and consistency in home treatment regimens for optimal success were answered to their verbally confirmed satisfaction.?Discussion for Bunion sx:?Several different types of Bunion surgeries were discussed with the patient, including, but not limited to: Modified Samuel bone removal and soft tissue release/realignment, Wally osteotomy with soft tissue release/realignment and internal fixation, Shaft v Base wedge osteotomies with internal fixation, and Lapidus joint fusion procedures with internal fixation. We discussed the risks of having surgery (described below) vs not having surgery (persistent pain, deformity, risk for skin ulceration/infection, loss of toe) as well as the potential surgical complications including, but not limited to: pain, swelling, bleeding, scarring, numbness, infection, delayed/non healing, floppy/unstable/shorthened toe, recurrence, failure of the procedure, overcorrection leading to plantarflexed/downward/upward positioned toe, recurrence, need for further surgery, as well as the possibility for loss of the toe itself. We discussed the use of IV/Local regional anesthesia, and the usual post-op course for healing. No guarentees were given. The patient verbally indicated a full understanding of the above conversation, and any other of their questions were answered to their satisfaction.?Orthotics:?I explained to the patient the benefits of OT use. I explained that orthoses are medically necessary to decrease the foot pain through proper mechanical control, support of their foot, cushion the forefoot by supplementing the soft tissue, possibly delay of the progression of the bunion deformity, possibly prevent surgery.?P.R.I.C.E.:?The patient was counseled on the use of P.R.I.C.E. and NSAIDS (if well tolerated) to aid in the recovery from their painful condition , Recommended Topical analgesics including Biofreeze/Aspercream/Voltaren gel.?Shoe Gear Counseling:?The patient and I reviewed the types of shoes they should be wearing. My recommendation included obtaining a well-fitted shoe with a good supportive, non-foldable nor twistable sole, plenty of toe/room for the forefoot, and proper arch support. Based on todays examination, I recommended the patient look for new shoes, by having their feet professionally measured. We discussed that generally the best time of the day for a shoe fitting is the afternoon. Different shoes types and brands to best match the patients occupation and vocation were discussed. Specific brand selection will be up to the patient, their individual foot condition/deformities, and fit. The patient and I reviewed the standard new shoe break in period by wearing them for a few hours a day while checking for redness or sores as wear time is increased. The patient verbally confirmed to understanding the information discussed.? * Follow Up:?prn * Images: * Sign off status: Completed true * Provider:?Scott Lemos DPM Date:?2023 Generated for Kallie barrientos/Veronica/Maddie on:?01/23/2025 12:22 PM EDT History and Physical Notes * HPI (History of Present Illness) Category Sub-Category Detail Notes Category Not es Foot Pain Location: Inside, Great toe joint, B/L Duration: several years Aggravated: any pressure Treatments: rest/alter normal da kristina activity, change in shoes Examination Category Sub-Category Detail Notes Category Not es Neurological SENSORY: Neurological exa m reveals intact sensorium, pain sensation normal, vibration sensation intact, pinprick sensation is normal in the lower extremities, Pt denies, anesthesia, burning, paresthesia, tingling, B/L TINEL'S COMPRESSION: Negative, Saphenous nerve distribution, B/L DEEP TENDON REFLEXES: Achilles, 2/4, B/L Dermatologic SKIN FINDINGS: Skin exam reveal s normal texture, elasticity, and turgor. There are no masses. The interspaces are clear Orthopedic BUNION: Medially promine nt 1st MPJ, (+) Pain on palpation, inflammation present medially, Lateral tracking 1st MPJ incompletely reducible, B/L MUSCLE STRENGTH: 5/5 all groups in a symmetrical fashion , B/L General Examination GENERAL APPEARANCE: Reveals a pleasant, alert, well- nourished, well-developed, well hydrated individual, who demonstrates proper attention to hygiene/body habitus, and is in no acute distress, Pt serves as own historian for office visit today ORIENTED: person, place, and t deborah Vascular DP PULSES (B): 3/4, B/L PT PULSES (B): 3/4, B/L CAPILLARY FILL TIME: immediate, all digi ts, B/L TEMPERTURE GRADIENT (C): warm to cool, p roximal to distal, B/L TROPHIC CONDITION-TEXTURE/ELASTICITY/TURGOR/HAIR GROWTH (B): normal, B/L EDEMA (C): absent, B/L PIGMENTATION: normal, B/L
--- OUTSIDE RECORDS SUMMARY | 2025-01-23 12:22 | XMS_ITS ---
[facility] [place] Address [address] [place] [address] Care Team Providers Care Sample Processor Name Role Phone Gary REFINERY SUPERINTENDENT, Ryan Primary Care Provider Unavail able Scott Lemos Unavailable [phone] Allergies No Known Allergies REASON FOR VISIT Foot pain Medications Medication SIG (Take, Route, Frequency, Duration) Notes Start Date End Date Status Venlafaxine HCl 37.5 MG 1 tablet with fo od Orally Once a day for 30 day(s) Active Wellbutrin 10 mg Not -Taking Calcium Not-Taking Multivitamin Not-Omid ing LORazepam 1 MG Orally Not-T aking Social History Tobacco Use: Social History Observation Description Date Details (start date - stop date) Former Smoker NA - NA Tobacco Use/Smoking Question Answer Notes Are you a: former smoker When did you stop smoking? 03/2018 Additional Findings: Tobacco Non-User Current no n-smoker Alcohol Screen Question Answer Notes Did you have a drink containing alcohol in the p ast year? Yes Points 0 Interpretation Negative Tobacco use other than smoking: Question Answer Notes Are you an other tobacco user? No Problems Problem Type SNOMED Code ICD Code Onset Dates Problem Status W/U Status Risk Notes Problem Osteoarthritis of midtarsal joint of right foot (2144951657824619 ) 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 Vital Signs Height 5ft 1in in 09/08/2023 Weight 145 lbs 09/08/2023 BMI 27.39 kg/m2 09/08/2023 Encounters Encounter Location Date Provider Diagnosis [facility] [place] [address] [address] 09/08/2023 Scott Lemos Pain in right foot M79.671 ; Pain in right ankle and joints of right foot M25.571 ; Bursitis of right foot M77.51 and Osteoarthritis of midtarsal joint of right foot M19.071 Assessments Encounter Date Diagnosis (ICD Code) Assessment Notes Treatment Notes Treatment Clinical Notes Section Notes 09/08/2023 Pain in right foot (ICD-10 - M79.671) 09/08/2023 Pain in right ankle and joints of right foot (ICD-10 - M25.571) 09/08/2023 Bursitis of right foot (ICD-10 - M77.51) 09/08/2023 Osteoarthritis of midtarsal joint of right foot (ICD-10 - M19.071) Plan Of Treatment Pending Test Test Name Order Date X ray : Foot, right 3V 09/08/2023 Next Appt Details Follow Up: prn, Reason: Progress Notes * Laura DONIS LDOB:[birth year] (43 yo F)Acc No.[id number]:09/08/2023 Progress Notes Patient:?Laura Donis L Provider:?Scott Lemos DPM :1980???Age:43 Y???Sex:Female D ate:09/08/2023 Address:[address] [place], [place] [id number] Pcp:Sacha Choi MD Subjective: * Chief Complaints: * ???Foot pain * HPI: ???Foot Pain:?Nature:?aching, stiffness, swelling, throbbing.?Location:?Top, Midfoot, RIGHT.?Duration:?2 months.?Course:?worse.?Treatments:?rest/alter normal daily activity , medication ( Nsaids on occasion) , pt states has custom?innersoles which are 4 yrs old - pt did not bring them in today.? * ROS:?General/Constitutional:?Nausea?denies.?Vomiting?denies.?Hunger Thirst?denies.?Loss appetite?denies.?Chills?denies.?Fatigue?denies.?Fever?denies.?Night Sweats?denies.?Unexplained weight loss?denies.?Unexplained weight gain?denies.?HEENTM:?Dentures?denies.?Dizziness?denies.?Glasses/contacts?admits.?Retinopathy?de nies.?Blurred/double vision?denies.?TMJ?denies.?Discharge/drainage?denies.?Implants?denies.?Sore throat?denies.?Dental implants?denies.?Hard of hearing ?denies.?Difficulty chewing/swallowing/speaking?denies.?Nose bleeds?denies.?Sore mouth?denies.?Respiratory:?On Oxygen?denies.?Pneumonia/pleurisy?denies.?Bronchitis?denies.?Emphysema?denies.?C oughing?denies.?Cough blood?denies.?Shortness of breath?denies.?Wheezing?denies.?Cardiovascular:?Pacemaker?denies.?MVP?denies.?WPW?denies.?CHF?denies.?Heart attack?denies.?Septal defect?denies.?Rapid beat?denies.?Chest pain ?denies.?Atrial Fib.?denies.?Murmur/Palpitations?denies.?Gastrointestinal:?Hemorrhoids?denies.?Stomach/Abdominal pain?denies.?Dark blood stool?denies.?Irritable bowel ?denies.?Constipation?denies.?Diarrhea?denies.?Hematology:?Swelling?denies.?Clots?denies.?Varicose Veins?denies.?Bruising?denies.?Bleeding problem?denies.?Genitourinary:?Blood urine?denies.?Frequent/Painfu/urination/bladder control?denies.?Kidney stones?denies.?Infection (UTI)?denies.?Nephropathy?denies.?sex trans dis (STD)?denies.?Prostate?denies.?Musculoskeletal:?Hammertoes?denies.?Bunions?denies.?Back Pain?denies.?Muscle Cramps/ Resting?denies.?Muscle cramps / walking?denies.?Generalized aches and pains?denies.?Weakness?denies.?Integ.:?Choudhary?denies.?Scars?denies.?Corns/calluses?denies.?Ingrown nails?denies.?Painful nails?denies.?Open Sores?denies.?Rashes?denies.?Neurologic:?Difficulty sleeping?denies.?Brain disorder?denies.?Numbness?denies.?Balance trouble?denies.?Confusion?denies.?Fainting/blackouts?denies.?Tingling?denies.?Tr emors?denies.? * Medical History:? * Surgical History:?Meniscus r epair 2008umbilical hernia repair 2006 * Hospitalization/Major Diagno stic Procedure:?No Hospitalization History. * Family History:?Mother: dece ased, poor circulation.?Father: alive, diagnosed with Unspecified essential hypertension, Other malignant neoplasm of unspecified site.?Paternal Grand Mother: foot problems, diagnosed with Family history of arthritis, Other malignant neoplasm of unspecified site.?Paternal Grand Father: poor circulation, diagnosed with Diabetic - NIDDM, Other malignant neoplasm of unspecified site.?Maternal Grand Mother: foot problems, diagnosed with Family history of arthritis, Other malignant neoplasm of unspecified site.?Spouse: alive.?Maternal Grand Father: diagnosed with Other malignant neoplasm of unspecified site.? * Social History:?Tobacco Use:?Tobacco Use/Smoking?Are you a:?former smoker ?When did you stop smoking??03/2018 ?Additional Findings: Tobacco Non-User?Current non-smoker ?Tobacco use other than smoking?Are you an other tobacco user??No ???Drugs/Alcohol:?Drugs?Have you used drugs other than those for medical reasons in the past 12 months??Yes THC Tincture ?Alcohol Screen?Did you have a drink containing alcohol in the past year??Yes ?Points?0 ?Interpretation?Negative ???Miscellaneous:?Caffeine: yes. ?Children: yes, 2. ?Exercise: yes, gym, walking. ?Marital status: . 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 * Medications:?TakingVenlafaxi ne HCl 37.5 MG Tablet 1 tablet with food Orally Once a dayTaking Venlafaxine HCl 37.5 MG Tablet 1 tablet with food Orally Once a dayNot-Taking/PRNCalcium LORazepam 1 MG Tablet Orally Multivitamin Wellbutrin 10 mg Medication List reviewed and reconciled with the patientNot-Taking/PRN Calcium Not-Taking/PRN LORazepam 1 MG Tablet Orally Not-Taking/PRN Multivitamin Not-Taking/PRN Wellbutrin 10 mg Medication List reviewed and reconciled with the patient * Allergies:?N.K.D.A.yes[Aller gies Verified] Objective: * Vitals:?Ht:5ft 1in, Wt:145, BMI:27.39, Shoe size:7.5. * Examination: ???Orthopedic: ?MUSCLE STRENGTH:?5/5 all groups in a symmetrical fashion , B/L.?FOOT MORPHOLOGY:? Prominent, painful 1st Met-Cuneiform joint without inflammation, RIGHT.?X-Rays - IMAGING REPORT: ?Clinical Indication(s):? Evaluate for Fracture, Evaluate Biomechanical Deformity.?Views:? 3 views of Foot, AP, LAT, LO, RIGHT.?Findings:?normal bone and soft tissue density consistent for patients age and sex, eburnation dorsal 1st MT/Cun. jt, dorsal degenerative changes of the tarsal joints, degenerative changes at the MT-Cunieform/Cuboid joints, and OCD dorsal talus noted.?Foot structure:?reveals excess pronation with , anterior break in cyme line , increased talar declination , decreased calcaneal inclination.?Fracture:?Negative fractures identified.?Neurological: ?SENSORY:?Neurological exam reveals intact sensorium, pain sensation normal, vibration sensation intact, pinprick sensation is normal in the lower extremities, Pt denies, anesthesia, burning, paresthesia, tingling, B/L.?TINEL'S COMPRESSION:? Negative, Intermediate dorsal cutaneous nerve distribution, Medial dorsal cutaneous nerve distribution, Deep peroneal nerve distribution, Right.?DEEP TENDON REFLEXES:?Achilles, 2/4, B/L.?General Examination: ?GENERAL APPEARANCE:?Reveals a pleasant, alert, well-nourished, well- developed, well hydrated individual, who demonstrates proper attention to hygiene/body habitus, and is in no acute distress, Pt serves as own?historian for office visit today.?ORIENTED:?person, place, and time.?Vascular: ?DP PULSES:?3/4, B/L.?PT PULSES:?3/4, B/L.?CAPILLARY FILL TIME:?immediate, all digits, B/L.?SKIN TEMPERTURE GRADIENT OF THE LOWER EXTERMITIES:?warm to cool, proximal to distal, B/L.?HAIR GROWTH/TEXTURE/ELASTICITY/TURGOR:?normal, B/L.?PIGMENTATION:?normal, B/L.?EDEMA:?absent, B/L.?Dermatologic: ?SKIN FINDINGS:?Skin exam reveals normal texture, elasticity, and turgor. There are no masses. The interspaces are clear.? Assessment: * Assessment: 1.?Pain in right ankle and j oints of right foot - M25.571?2.?Pain in right foot - M79.671 (Primary)?3.?Bursitis of right foot - M77.51, Acute problem, Complicated w/ Multiple Tx Options(4),Dx New problem, Prognosis Uncertain (4)?4.?Osteoarthritis of midtarsal joint of right foot - M19.071, Acute problem, Complicated w/ Multiple Tx Options(4),Dx New problem, Prognosis Uncertain (4)? Plan: * Treatment: * Procedure Codes:?23607 X-RAY EXAM OF RIGHT FOOT 3V, Modifiers: 26 , RT * Preventive Medicine:? ??Counseling:?Discussion:?-04: Office or other outpatient visit for the evaluation and management of a new patient, which required a medically appropriate history and/or examination and MODERATE level of DECISION MAKING for: 1 OR MORE CHRONIC PROBLEM(S) THATS WORSENING, 2 STABLE CHRONIC PROBLEMS, A NEWLY DIAGNOSED PROBLEM WITH UNCERTAIN PROGNOSIS, AN ACUTE COMPLICATED INJURY WITH MULTIPLE TREATMENT OPTIONS, OR AN ACUTE PROBLEM WITH ACCOMPANYING SYSTEMIC SYMPTOMS, THAT POSE(S) A MODERATE RISK OF MORBIDITY. THIS CONDITION MAY ALSO INCLUDE RX DRUG MANAGEMENT, OR A DECISON FOR MINOR SURGERY. The visit on the day of the [...] have encouraged the patient to call the office.?Arthritis:?The patient was counseled on the various etiologies for their Arthritis including genetic, history of injury or trauma, abnormal foot biomechanics leading to excessive joint wear, and use/overuse. We discussed the various treatment options from no treatment, to topical analgesics such as Biofreeze gel, Aspercream, Voltaren gel, Lidoderm patches, CBD oils, THC creams, and Custom-compounded topical cream preparations to natural oral products such as Glucosamine Sulfate/Chondroitin/MSM/Collegen to analgesic Tylenol, to anti-inflammatory medications such as Ibuprofen/Naproxen, and the use of oral steroids if needed. Cardiac, Kidney, and GI issues were discussed RE: potential complications of oral anti-inflammatories. We discussed several other treatment options consisting of accom shoes, supportive innersoles, AFO bracing/support, cortisone injection therapy, and surgical resection of the arthritic joint(s) or fusion reconstruction if necessary. We discussed the advantages and disadvantages of conservative (vs) surgical treamtents including pain relief, improved function/activities of daily life, return to exercise to failure, expense, systemic complications, infection, [id number], prolongued postop course. Patient questions re: the various treatment options available, their successes and potential failures, and shelter effects were discussed and the answers were verbally confirmed understood.?Orthotics:?I explained to the patient the benefits of OT use. I explained that orthoses are medically necessary to decrease the foot pain through proper mechanical control, support of their foot - pt is to bring in her OT for evaluation.?P.R.I.C.E.:?The patient was counseled on the use of P.R.I.C.E. and NSAIDS (if well tolerated) to aid in the recovery from their painful condition.?Podiatric Surgery Counseling:?Surgical procedures to treat the patients foot problem were discussed. We reviewed the risks of the procedure (described below) vs not having the procedure (persistent pain, deformity, risk for skin ulceration/infection, loss of toe). We discussed the potential procedure complications including, but not limited to: pain, swelling, bleeding, scarring, numbness, infection, delayed/non healing, floppy/unstable/shorthened toe, recurrence, failure of the procedure, overcorrection leading to plantarflexed/downward positioned toe, recurrence, need for further surgery, as well as the possibility for loss of the toe itself. We discussed the use of IV/Local anesthesia, and the usual post-op course for healing. No guarentees were given. The patient verbally indicated a full understanding of the above conversation, and any other of their questions were answered to their satisfaction - pt defers.?Shoe Gear Counseling:?The patient and I reviewed the [...] status: Completed true * Provider:?Scott Lemos DPM Date:?2022 Generated for Kallie barrientos/Veronica/Maddie on:?01/23/2025 12:21 PM EDT History and Physical Notes * HPI (History of Present Illness) Category Sub-Category Detail Notes Category Not es Foot Pain Nature: aching, stiffness, swelling, throbbing Location: Top, Midfoot, RIGHT Duration: 2 months Course: worse Treatments: rest/alter normal da kristina activity , medication ( Nsaids on occasion) , pt states has custom innersoles which are 4 yrs old - pt did not bring them in today Examination Category Sub-Category Detail Notes Category Not es Neurological SENSORY: Neurological exa m reveals intact sensorium, pain sensation normal, vibration sensation intact, pinprick sensation is normal in the lower extremities, Pt denies, anesthesia, burning, paresthesia, tingling, B/L TINEL'S COMPRESSION: Negative, Intermedi ate dorsal cutaneous nerve distribution, Medial dorsal cutaneous nerve distribution, Deep peroneal nerve distribution, Right DEEP TENDON REFLEXES: Achilles, 2/4, B/L Dermatologic SKIN FINDINGS: Skin exam reveal s normal texture, elasticity, and turgor. There are no masses. The interspaces are clear Orthopedic FOOT MORPHOLOGY: Prominent, pain ful 1st Met-Cuneiform joint without inflammation, RIGHT MUSCLE STRENGTH: 5/5 all groups in a [...] EDEMA (C): absent, B/L PIGMENTATION: normal, B/L X-Rays - IMAGING REPORT Findings: normal b one and soft tissue density consistent for patients age and sex, eburnation dorsal 1st MT/Cun. jt, dorsal degenerative changes of the tarsal joints, degenerative changes at the MT-Cunieform/Cuboid joints, and OCD dorsal talus noted Fracture: Negative fractures i dentified Foot structure: reveals excess prona tion with , anterior break in cyme line , increased talar declination , decreased calcaneal inclination Views: 3 views of Foot, AP, LAT, LO, RIGHT Clinical Indication(s): Evaluate for Fra cture, Evaluate Biomechanical Deformity
--- OUTSIDE RECORDS SUMMARY | 2025-01-23 12:22 | XMS_ITS | Patient Health Record ---
Author Organization [facility] [place] Address [address] [place] [address] Care Team Providers Care Educational Paraprofessional Name Role Phone Gary ROA, Ryan Primary Care Provider Unavail able Aminta, Scott Unavailable [phone] Allergies No Known Allergies Reason For Referral No Information Medications Medication SIG (Take, Route, Frequency, Duration) [...] Status Risk Notes Problem Acquired hallux valgus (63590859) Hallux valgus (acquired), left foot (M20.12) Active confirmed Problem Acquired hallux valgus (57713386) Hallux valgus (acquired), right foot (M20.11) Active confirmed Problem Osteoarthritis of midtarsal joint of right foot (6535722237554100 ) 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 Vital Signs Blood pressure diastolic 85 mm Hg 09/19/2024 Height 5ft1in in 09/19/2024 Blood pressure systolic 140 mm Hg 09/19/2024 Weight 150 lbs 09/19/2024 BMI 28.34 kg/m2 09/19/2024 Encounters Encounter Location Date Provider Diagnosis [facility] [address] [address] 09/19/2024 Scottavelino GoodAminta Pain in left ankle and joints of [...] foot (ICD-10 - M20.11) Plan Of Treatment Pending Test Test Name Order Date X ray : Foot, right 3V 09/08/2023 Insurance Providers Payer Name Payer Address Payer Phone Subscriber Number Group Number Insured Name Patient Relationship to Insured Coverage Start Date Coverage End Date [employer] [place] [address] [place] [phone] [id number] Laura Donis Self - patient is the insured Medical (General) History Medical History History ICD Code Anxiety Depression Chicken pox Arthritis Eczema Surgical History Surgery Date(Month/Year) Meniscus repair 2007 umbilical hernia repair 2005 knee surgery
== END 2025-01-23 11:33 | disposition home or self-care (01) ==
LOC: HO.HMCFM 10:43
PROVIDERS: PCP Nurse Practitioner Family; Visit Provider Nurse Practitioner Family
DX: I83.91 Asymptomatic varicose veins of right lower extremity (principal); R03.0 Elevated blood-pressure reading, without diagnosis of hypertension

== ENCOUNTER → 2025-01-23 10:42 | Outpatient (BNVA) | payer OTHER, SELFPAY | PROVIDERS: PCP Nurse Practitioner Family; Visit Provider Nurse Practitioner Family | DX: Z13.89 Encounter for screening for other disorder (principal) ==

== ENCOUNTER 2025-03-08 14:24 | Outpatient (REF) | payer OTHER, SELFPAY ==
[2025-03-15 10:50] LABS: HPV Genotype 16 Negative (Negative); HPV Genotype 18 Negative (Negative); HPV High Risk Negative (Negative)
== END 2025-03-08 14:25 | disposition home or self-care (01) ==
LOC: HO.LNP 14:24
PROVIDERS: PCP Nurse Practitioner Family; Visit Provider Obstetrics & Gynecology
DX: Z01.419 Encounter for gynecological examination (general) (routine) without abnormal findings (principal)
CPT/HCPCS: 87626; 88175

== ENCOUNTER 2025-03-08 14:24 | Outpatient (AMB) | payer OTHER, SELFPAY ==
--- NOTE | 2025-03-08 14:27 | MHC.OFFVIS ---
Vital Signs 03/08/25 14:35 Height 5 ft 1 in Weight 152 lb BMI 28.7 BP 112/70 Intake Visit Reasons: annual/ follow up hot flashes Business Process Engineer: Business Process Engineer Present (Gladys) Accompanied by: Self / Same As Patient Allergies No Known Allergies Allergy (Verified 03/08/25 14:35) Is last menstrual period known: No Post menopausal: No Patient : No HPI Comments Details: Presenting for annual exam. No complaints. Last Pap/HPV Last Mammogram was BI-RADS 1 in 09/12 [facility] Medical History Umbilical hernia Surgical History Hx of hernia repair History of knee surgery Family History Paternal Grandmother FH: mental illness Family/Other FH: mental illness Daughter FH: mental illness Father HTN (hypertension) High cholesterol Diabetes Paternal Grandfather Diabetes Brain cancer Maternal Grandfather Prostate cancer Father HTN (hypertension) Social History Housing: House Patient Tobacco Use Status: Never used Tobacco e-Cigarette/Vaping Use: Currently Using Second Hand Smoke Exposure: No Substance Use Type: Marijuana Patient : No service: No Current occupational status: employed 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 Current occupational exposures/hazards: No Cognitive needs: No Hearing needs: No Vision needs: Yes Female Reproductive History Menstrual Age of Menarche: 11 control method: progestin IUCD (Mirena ) Total pregnancies: 3 Full term: 2 Ab induced: 1 Date of Mammogram: 09/19/24 (BI RAD 1) Review of Systems Const All systems reviewed & are unremarkable except as noted in HPI and below Card Reports as per HPI Resp Reports as per HPI GI Reports as per HPI and Reports no additional complaints Reports as per HPI Physical Exam Vital Signs: Last Vital Signs BP 112/70 03/08/25 14:35 BMI result Body Mass Index 28.7 Const General: cooperative, healthy appearing and comfortable Chest Chest palpation & inspection: normal inspection of the chest and normal palpation of entire chest wall Breast/axilla inspection: normal inspection of the breasts and normal inspection of the axillae Breast/axilla palpation: normal palpation of the breasts, normal palpation of the axillae and no axillary lymphadenopathy Resp Effort & Inspection: normal respiratory effort Auscultation: clear to auscultation bilaterally Percussion: percussion normal Cardio Palpation: normal PMI Rate: regular rate Rhythm: regular rhythm Heart sounds: no murmurs and no rubs Peripheral pulses: Peripheral pulses 2+ throughout GI Inspection: Yes normal to inspection Palpation (GI): Soft to palpation, nontender, no guarding, not rigid and No hepatosplenomegaly present Percussion: Yes normal to percussion Auscultation: normal bowel sounds Rectal Exam - Female: deferred General: Yes bladder normal to palpation External Female Exam: No lesion Speculum Exam - Vagina: normal appearance of the vagina, normal palpation, normal vaginal discharge and not erythematous Speculum Exam - Cervix: normal appearance of the cervix and normal palpation Bimanual exam- vagina & uterus: normal bimanual exam, normal palpation, uterine size normal, bladder normal to palpation, consistency normal and normal palpation Bimanual Exam- Adnexa, other: normal adnexae, no masses and no tenderness Assessment & Plan Assessment & Plan (1) Well woman exam: Code(s): Z01.419 - Encounter for gynecological examination (general) (routine) without abnormal findings Category: Medical Plan: Cotesting done. Instructions given the patient to schedule next screening Mammogram in 09/13. Counseled the patient about the recommended dietary allowance of 1000 mg of Calcium & 600 IU of vitamin D. Refer to GI for screening colonoscopy placed The patient was instructed to perform monthly self-breast exams and to schedule an annual exam in a year; All questions answered and the patient verbalized understanding. Instructed the patient to schedule annual exam in a year Orders: Referrals Gastroenterology Referral Z12.11 - Encounter for screening for malignant neoplasm of colon Coding Level of Care Code Est Pt Prev Care 40-64y(40297) Diagnoses Well woman exam Z01.419
[2025-03-08 14:35] VITALS: BP 112/70; BMI 28.7
--- OUTSIDE RECORDS SUMMARY | 2025-03-08 15:41 | XMS_ITS | Data Portability ---
Author Organization [facility]og [facility], [address] Address [address] [place] [address] Care Team Providers Care Pourer Crane Ladle Name Role Phone [facility] Primary Care Provider Assessment No assessment recorded. Plan of Treatment Reminders Order Date Submit Date Provider Last Modified By Organization Details Last Modified Time Details Appointments None recorded. Lab SARS CoV 2 (COVID-19) Ag, QL, IA, upper respiratory specimen 2024 025 [email or web address] 20994_[facility], [address] [place] [address], [phone], 5 09:07:11 rapid flu (A+B) 2024 025 [email or web address] 20994_[facility], [address] [place] [address], [phone], 5 09:07:12 Referral None recorded. Procedures None recorded. Surgeries None recorded. Imaging None recorded. Medication Orders Flonase Sensimist 27.5 mcg/actuati on nasal spray,suspe nsion 2024 025 [facility], [address] [place], [address], 5 09:07:14 doxycycline hyclate 100 mg capsule 2024 025 [facility], [address] [place], [address], 5 09:07:15 Patient TargetsNo targets recorded. Patient Instructions Encounter Date Encounter Id Patient Instructions Last Modified By Organization Details Last Modified Time 10/01/2024 [id number] bronchitis: care instructions [email or web address] Not available 10/01/2024 09:07:11 Reason for Referral None Reported. Results Created Date Observation Date Name Description Value Unit Range Abnormal Flag Note LastModifiedBy Organization Detail LastModifiedTime 10/01/19 25 10/01/2024 rapid flu (A+B) Unknown Analyte negati ve Not Available [address], [address], 10/01/2024 08:47:03 10/01/19 25 10/01/2024 rapid flu (A+B) Unknown Analyte negati ve Not Available [address], [address], 10/01/2024 08:47:03 10/01/19 25 10/01/2024 rapid flu (A+B) Unknown Analyte n Not Available [address] [place] [address], [phone], 10/01/2024 08:47:03 10/01/19 25 10/01/2024 rapid flu (A+B) Unknown Analyte yes Not Available [address] [place] [address], [phone], 10/01/2024 08:47:03 10/01/19 25 10/01/2024 SARS CoV 2 (COVI D-19) Ag, QL, IA, upper respi rator y speci men Unknown Analyte negati ve Not Available [address], [address], 10/01/2024 08:46:56 10/01/19 25 10/01/2024 SARS CoV 2 (COVI D-19) Ag, QL, IA, upper respi rator y speci men Unknown Analyte n Not Available [address], [address], 10/01/2024 08:46:56 10/01/19 25 10/01/2024 SARS CoV 2 (COVI D-19) Ag, QL, IA, upper respi rator y speci men Unknown Analyte yes Not Available [address] [place], [address], 10/01/2024 08:46:56 Result Notes None recorded. Problems Name Problem SNOMED Code Status Onset Date Resolution Date Notes Provider Name and Address Organization Details Recorded Time Anxiety 66055825 Active MAXIMINO Velarde [facility] 10/01/2024 08:43:21 Problem Notes None recorded. Medical [...] Arterial blood by Pulse oximetry Heart rate Respiratory rate Body temperature Systolic blood pressure Diastolic blood pressure Provider Name and Address Organization Details Last Updated DateTime 152.4 cm 29.3 kg/m2 14385.8 6 g 99 % 99 % 95 /min 21 /min 99 [degF] 126 mm[Hg] 79 mm[Hg] Neri Mitchell [facility] 08:41:32 Social History Question Answer Notes LastModified by Organizat ion Details LastModified Time Tobacco Smoking Status Former Smoker Neri douglas, [place] - [facility] 10/01/2024 08:45:18 Which Illicit Or Recreational Drugs Have You Used? Cannabis Information not available 10/01/2024 When Did You Quit Smoking? 1-5yearssinc elastcigaret te Information not available 10/01/2024 Have You Had [...] To Smoke? No Information not available 10/01/2024 How Many Years Have You Smoked Tobacco? 20 Information not available 10/01/2024 Sex: Unknown Functional Status Question Answer Note LastModified by Organizat ion Details LastModified Time Do you use any illicit or recreational drugs? Yes Information not available 10/01/2024 Do you or have you ever used any other forms of tobacco or nicotine? No Information not available 10/01/2024 What is your level of alcohol consumption? Occasional Information not available 10/01/2024 Are you currently employed? Yes Information not available 10/01/2024 Mental Status None recorded. Family History Relationship [...] mcg/0.3 mL dose 11/27/2020 completed Neri Mascorro Ceferion null, [place] - [facility] 10/01/2024 08:42:14 [...] SNOMED-CT Code Diagnosis ICD10 Code Diagnosis Note [id number] 20994[facility] [address] [place] [phone] 10/14/2016 15:53:01 10/14/2016 17:17:01 [id number] [facility] [address] [address] [place] [address] 07/06/2022 14:38:16 07/06/2022 16:36:41 [id number] Cesar Gallardo DO 20[facility] [address] [place] [phone] 10/01/2024 08:23:21 10/01/2024 09:10:48 Cough [id number] R05.9 Given Hx and Sx will Rx [...] Recorded Advance Directives Directive None Recorded Payers Insurance Date Sequence Insurance Name Policy Number Policy Roberson Covered Member ID Roberson Member ID Guarantor Name 10/01/2024 1 [facility] ([facility] Laura Cervantesbre [id number] Laura Cervantesbre 10/01/2024 1 [facility] [place] [id number] Laura Cervantesbre [id number] Laura Cervantesbre Notes Date Note Type Note Provider Name [...] Gallardo, DO [address] [place], [address], PA - [facility] 10/01/2024 09:08:57 OBGyn Episode No OBEpisode recorded.
== END 2025-03-08 14:54 | disposition home or self-care (01) ==
LOC: HO.HWS 14:24
PROVIDERS: PCP Nurse Practitioner Family; Visit Provider Obstetrics & Gynecology
DX: Z01.419 Encounter for gynecological examination (general) (routine) without abnormal findings (principal)
CPT/HCPCS: 99396; 99459

== ENCOUNTER 2025-03-30 12:53 | Outpatient (AMB) | payer OTHER, SELFPAY ==
--- OUTSIDE RECORDS SUMMARY | 2025-03-30 12:56 | XMS_ITS | Patient Health Record ---
Author Organization [facility] [place] Address [address] [place] [address] Care Team Providers Care Vp Client Services Name Role Phone Gary ROA, Ryan Primary Care Provider Unavail able Aminta, Scott Unavailable [phone] Allergies No Known Allergies Reason For Referral No Information Medications Medication SIG (Take, Route, Frequency, Duration) Notes Start Date End Date Status LORazepam 1 MG Orally Not-T aking Calcium Not-Taking Venlafaxine HCl 37.5 MG 1 tablet with fo od Orally Once a day; Duration: 30 day(s) Active Wellbutrin 10 mg Not [...] Status Risk Notes Problem Acquired hallux valgus (60866487) Hallux valgus (acquired), left foot (M20.12) Active confirmed Problem Acquired hallux valgus (80271362) Hallux valgus (acquired), right foot (M20.11) Active confirmed Problem Osteoarthritis of midtarsal joint of right foot (7089077977315808 ) 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 Vital Signs Blood pressure diastolic 85 mm Hg 09/19/2024 Height 5ft1in in 09/19/2024 Blood pressure systolic 140 mm Hg 09/19/2024 Weight 150 lbs 09/19/2024 BMI 28.34 kg/m2 09/19/2024 Encounters Encounter Location Date Provider Diagnosis [facility] [address] [address] 09/19/2024 Scott Aminta Pain in left ankle and joints of [...] Insured Coverage Start Date Coverage End Date [employer] [address] [place] [phone] [id number] Laura Donis Self - patient is the insured Medical (General) History Medical History History ICD Code Anxiety Depression Chicken pox Arthritis Eczema Surgical History Surgery Date(Month/Year) Meniscus repair 2007 umbilical hernia repair 2006 knee surgery
--- OUTSIDE RECORDS SUMMARY | 2025-03-30 12:56 | XMS_ITS | Data Portability ---
Author Organization [facility]IM[facility] Herzog [facility], [address] Address [address] [place] [address] Care Team Providers Care Road Freight Conductor Name Role Phone [facility] Primary Care Provider Assessment No assessment recorded. Plan of Treatment Reminders Order Date Submit Date Provider Last Modified By Organization Details Last Modified Time Details Appointments None recorded. Lab SARS CoV 2 (COVID-19) Ag, QL, IA, upper respiratory specimen 2024 025 [email or web address] 20994_[facility], [address] [place] [address], [address], 5 09:07:11 rapid flu (A+B) 2024 025 [email or web address] _[facility], [address] [place] [address], [address], 5 09:07:12 Referral None recorded. Procedures None recorded. Surgeries None recorded. Imaging None recorded. Medication Orders Flonase Sensimist 27.5 mcg/actuati on nasal spray,suspe nsion 2024 025 [facility], [address] [place], [address], 5 09:07:14 doxycycline hyclate 100 mg capsule 2024 025 [facility], [address] [place], [address], 5 09:07:15 Patient TargetsNo targets recorded. Patient Instructions Encounter Date Encounter Id Patient Instructions Last Modified By Organization Details Last Modified Time 10/01/2024 [id number] bronchitis: care instructions [email or web address] Not available 10/01/2024 09:07:11 Reason for Referral None Reported. Results Created Date Observation Date Name Description Value Unit Range Abnormal Flag Note LastModifiedBy Organization Detail LastModifiedTime 10/01/19 25 10/01/2024 rapid flu (A+B) Unknown Analyte negati ve Not Available [facility] [address] [place] [address], [address], 10/01/2024 08:47:03 10/01/19 25 10/01/2024 rapid flu (A+B) Unknown Analyte negati ve Not Available [address], [address], 10/01/2024 08:47:03 10/01/19 25 10/01/2024 rapid flu (A+B) Unknown Analyte n Not Available [address], [address], 10/01/2024 08:47:03 10/01/19 25 10/01/2024 rapid flu (A+B) Unknown Analyte yes Not Available [address] [place] [address], [address], 10/01/2024 08:47:03 10/01/19 25 10/01/2024 SARS CoV 2 (COVI D-19) Ag, QL, IA, upper respi rator y speci men Unknown Analyte negati ve Not Available [facility] [address] [place] [address], [address], 10/01/2024 08:46:56 10/01/19 25 10/01/2024 SARS CoV 2 (COVI D-19) Ag, QL, IA, upper respi rator y speci men Unknown Analyte n Not Available [address] [place], [address], 10/01/2024 08:46:56 10/01/19 25 10/01/2024 SARS CoV 2 (COVI D-19) Ag, QL, IA, upper respi rator y speci men Unknown Analyte yes Not Available [address] [place], [address], 10/01/2024 08:46:56 Result Notes None recorded. Problems Name Problem SNOMED Code Status Onset Date Resolution Date Notes Provider Name and Address Organization Details Recorded Time Anxiety 30672443 Active MAXIMINO Velarde [facility] 10/01/2024 08:43:21 Problem Notes None recorded. Medical [...] Heart rate Respiratory rate Body temperature Systolic And Diastolic Provider Name and Address Organization Details Last Updated DateTime 152.4 cm 29.3 kg/m2 07458.8 6 g 99 % 99 % 95 /min 21 /min 99 [degF] 126/79 mm[Hg] Neri Mitchell [facility] 08:41:32 Social History Question Answer Notes LastModified [...] SNOMED-CT Code Diagnosis ICD10 Code Diagnosis Note [id number] 20994[facility] [address] 10/14/2016 15:53:01 10/14/2016 17:17:01 [id number] 2099_[facility] [address] [place] [phone] 07/06/2022 14:38:16 07/06/2022 16:36:41 [id number] Cesar Gallardo DO [facility] [address] [address] 10/01/2024 08:23:21 10/01/2024 09:10:48 Cough [id number] R05.9 Given Hx and Sx will Rx [...] Roberson Member ID Guarantor Name 10/01/2024 1 [facility] ([facility] Laura Cervantesbre [id number] Laura Cervantesbre 10/01/2024 1 [facility] ([facility] [id number] Laura Cervantesbre [id number] Laura Cervantesbre Notes Date Note Type [...] Gallardo, DO [address] [place], [address], [place] - [facility] 10/01/2024 09:08:57 OBGyn Episode No OBEpisode recorded.
--- OUTSIDE RECORDS SUMMARY | 2025-03-30 12:57 | XMS_ITS ---
[facility] Name [facility] Organization Unknown Encounters Encounter Type Encounter Reason Primary Diagnosis Location Date Ambulatory [facility]. ([facility] 10/01/2024
--- NOTE | 2025-03-30 13:04 | A.OFFPC_ITS ---
Vital Signs 03/30/25 13:09 Height 5 ft 1 in Weight 148 lb 2 oz BMI 28.0 BP 125/77 Blood Pressure Location Lt brachial Position Sitting Respiration 16 Pulse 78 Pulse Source Pulse Oximeter Temp 98.4 F Temp Source Oral Pulse Oximetry (%) 99 Oxygen Delivery Method Room Air Intake Visit Reasons: 3 mos anxiety and Elevated BP Intake Note: patient here for 3 month follow up on anxiety and elevated BP Archery Instructor Required: No Is last menstrual period known: No Post menopausal: No Patient : No Allergies No Known Allergies Allergy (Verified 03/30/25 13:33) Medication List - Last Reconciled 03/30/25 by Brian Vega CNP levonorgestrel (Mirena) intrauterine Tobacco use date assessed: 03/30/25 Dental Screening Dental Screen Date: 03/30/25 Did you have a dental visit in the last 12 months?: Yes Did you have a dental problem in the last 6 months where you did not have access to dental care?: No Was dental information given to patient?: Patient has dentist HPI HPI Comments History of Present Illness Details 44-year-old female presents for elevated blood pressure and anxiety follow-up. He admits to making healthy lifestyle changes. She reports controlled anxiety and depressive symptoms. She stopped taking venlafaxine 2 months ago. She offers no complaints and denies acute symptoms at this time. [facility] Medical History Umbilical hernia Surgical History Hx of hernia repair History of knee surgery Family History Paternal Grandmother FH: mental illness Family/Other FH: mental illness Daughter FH: mental illness Father HTN (hypertension) High cholesterol Diabetes Paternal Grandfather Diabetes Brain cancer Maternal Grandfather Prostate cancer Father HTN (hypertension) Social History Housing: House Patient Tobacco Use Status: Never used Tobacco e-Cigarette/Vaping Use: Currently Using Second Hand Smoke Exposure: No Substance Use Type: Marijuana Patient : No service: No Current occupational status: employed 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 1. Little interest or pleasure in doing things: not at all 2. Feeling down, depressed, or hopeless: not at all 3. Trouble falling or staying asleep, or sleeping too much: not at all 4. Feeling tired or having little energy: several days 5. Poor appetite or overeating: not at all 6. Feeling bad about yourself - or that you are a failure or have let yourself or your family down: not at all 7. Trouble concentrating on things, such as reading the newspaper or watching television: not at all 8. Moving or speaking so slowly that other people could have noticed. Or the opposite - being so fidgety or restless that you have been moving around a lot more than usual: not at all 9. Thoughts that you would be better off or of hurting yourself in some w ay: not at all Total score: 1 Depression Screening Interpretation: Negative Depression Screening Done: Yes 70642 - PHQ-9 Billing: Yes Source: Developed by Drs. Henrique Zapata, Marilynn Pastor, Jose Malcolm and colleagues, with an educational wandy from [employer]. Thrive Questionnaire Date Thrive assessed: 12/04/24 I am a: Patient What is your living situation today?: I have a steady place to live Within the past 12 months, did the food you bought not last and you didn't have the money to get more?: Never true Within the past 12 months, did you worry whether your food would run out before you got money to buy more?: Never true Do you have trouble paying for medicines?: No Do you have trouble getting transportation to medical appointments?: No Do you have trouble paying your heating and electricity bill?: No Do you have trouble taking care of your child, family member or friend?: No Do you have trouble with day-to-day activities such as bathing, preparing meals, shopping, managing finances, etc.?: No Are you currently unemployed and looking for a job?: No Are you interested in more education?: No Please select the resources that you would like help with: None Currently or been in a relationship where the following occur: No concerns reported THRIVE Score: 0 ISRAEL-7 AMB Questionnaire ISRAEL-7 Date ISRAEL - 7 assessed: 03/30/25 Feeling nervous, anxious, or on edge: 1 = Several days Not being able to stop or control worryin = Several days Worrying too much about different things: 0 = Not at all Trouble relaxin = Not at all Being so restless that it is hard to sit still: 0 = Not at all Becoming easily annoyed or irritable: 0 = Not at all Feeling afraid as if something awful might happen: 0 = Not at all Total ISRAEL-7 score (0-4 normal; 5-9 mild; 10-14 moderate; 15-21 severe): 2 Source: Developed by Drs. Henrique Zapata, Marilynn Pastor, Jose Malcolm and colleagues, with an educational wandy from [employer]. ISRAEL-7 Assessment Billing ISRAEL-7 Assessment Tool: ISRAEL-7 Assessment 60829 Review of Systems Const Details: Const Denies chills, Denies fatigue, Denies fever(s), Denies headache(s) and Denies weakness ENT Denies dizziness and Denies headache(s) Card Denies chest pain, Denies lightheadedness, Denies dyspnea and Denies other (Palpitations) Resp Denies cough, Denies dyspnea, Denies wheezing and Denies other ( shortness of breath) GI Denies abdominal pain, Denies melena, Denies hematochezia, Denies change in bowel habits, Denies dyspepsia and Denies nausea Denies hematuria and Denies dysuria Musc Denies abnormal gait, Denies myalgias, Denies arthralgias, Denies numbness and Denies tingling Skin/Breast Denies rash, Denies unusual bruising and Denies wounds Neuro Denies abnormal gait, Denies dizziness, Denies headache(s), Denies memory loss, Denies numbness, Denies Sensory deficit (Neuro), Denies tingling and Denies weakness Psych Denies anxiety, Denies depression, Denies memory loss Endo Denies cold intolerance, Denies fatigue, Denies heat intolerance, Denies polydipsia and Denies polyuria Aller/Immun Denies wheezing Physical exam (Primary Care) Vital Signs: Last Vital Signs Temp 98.4 F 03/30/25 13:09 Pulse 78 07/11/25 13:09 Resp 16 03/30/25 13:09 BP 125/77 03/30/25 13:09 Pulse Ox 99 03/30/25 13:09 Oxygen Delivery Method Room Air 03/30/25 13:09 BMI result Body Mass Index 28.0 Tobacco/Smoking Status: Tobacco use Status Tobacco use date assessed 03/30/25 03/30/25 13:13 Patient Tobacco Use Status Never used Tobacco 03/30/25 13:05 e-Cigarette/Vaping Use Currently Using 03/30/25 13:05 PHQ-9: PHQ-9 Score PHQ-9: Total score 1 03/30/25 13:13 Depression Screening Interpretation: Negative Thrive Assessment: Date of Thrive Assessment Date Thrive assessed 12/04/24 03/30/25 13:05 Currently or been in a relationship where the following occur: No concerns reported Const Other: General: no acute distress and well developed Nutritional Appearance: well nourished Orientation/consciousness: patient oriented x3 HENMT Head: Yes normocephalic and Yes atraumatic Eyes General: appearance normal, both eyes and all related structures Pupils: Equal, round and reactive pupils present EOM: EOMs intact bilaterally Resp Effort & Inspection: normal respiratory effort Auscultation: clear to auscultation bilaterally Cardio Rate: regular rate Rhythm: regular rhythm Heart sounds: S1 normal heart sound present, S2 normal heart sound present, no gallops, no murmurs and no rubs GI Palpation (GI): No Abdominal aortic bruit present, Soft to palpation, nontender, No hepatosplenomegaly present and No Rebound tenderness present Auscultation: normal bowel sounds General: Yes no CVA tenderness Back/Spine/Pelvis Back: no CVA tenderness Cervical Spine: cervical ROM normal and No Cervical spine tenderness Thoracic/Lumbar Spine: thoraco-lumbar ROM normal, No pain with thoraco-lumbar ROM, No thoracic spinal tenderness and No lumbar spinal tenderness Extrem General: Yes normal to inspection, No edema and No calf tenderness Skin General: warm and dry. Normal skin color. Normal skin turgor Neuro General: patient oriented x3, gait normal and no focal neuro deficit Cranial nerves: Yes Equal, round and reactive pupils present Cognition (Neuro): normal cognition Gait exam (Neuro): Normal gait present Sensory Exam: No Sensory deficit (Neuro) Psych Appearance: grossly normal Affect: normal affect Attitude: cooperative Thought process: Normal thought process present Coding Level of Care Code Est Pt Level 3 (54013) Diagnoses Elevated blood pressure reading in office without diagnosis of hypertension R03.0 Anxiety F41.9 Additional Codes ISRAEL-7 Assessment Billing - ISRAEL-7 Assessment Tool: ISRAEL-7 Assessment 96350 ([id number]) PHQ-9 - 38060 - PHQ-9 Billing: Yes ([id number]) Assessment & Plan Assessment & Plan (1) Elevated blood pressure reading in office without diagnosis of hypertension: Code(s): R03.0 - Elevated blood-pressure reading, without diagnosis of hypertension Category: Medical Plan: Blood pressure is 125/77, within goal of less than 140/90. Healthy diet, including low-salt and routine exercise encouraged. Follow-up for an extended physical exam later this year. Return sooner with symptoms or concerns. Verbalized understanding and agreed with the plan. (2) Anxiety: Code(s): F41.9 - Anxiety disorder, unspecified Category: Medical Plan: Reports controlled anxiety and depressive symptoms. She stop taking venlafaxine 2 months ago. PHQ-9 and ISRAEL-7 scores are normal. Healthy diet and routine exercise encouraged. Follow-up with symptoms or concerns. Verbalized understanding and agreed with the plan.
[2025-03-30 13:09] VITALS: BP 125/77; PULSE 78; RESP 16; TEMP 36.9; O2SAT 99; BMI 28.0
== END 2025-03-30 13:40 | disposition home or self-care (01) ==
LOC: HO.HMCFM 12:54
PROVIDERS: PCP Nurse Practitioner Family; Visit Provider Nurse Practitioner Family
DX: R03.0 Elevated blood-pressure reading, without diagnosis of hypertension (principal); F41.9 Anxiety disorder, unspecified

== ENCOUNTER → 2025-03-30 12:53 | Outpatient (BNVA) | payer OTHER, SELFPAY | PROVIDERS: PCP Nurse Practitioner Family; Visit Provider Nurse Practitioner Family | DX: R03.0 Elevated blood-pressure reading, without diagnosis of hypertension (principal); F41.9 Anxiety disorder, unspecified; Z13.31 Encounter for screening for depression; Z13.39 Encounter for screening examination for other mental health and behavioral disorders | CPT/HCPCS: 96127 ==

== ENCOUNTER 2025-04-17 12:41 | Outpatient (AMB) | payer OTHER, SELFPAY ==
--- OUTSIDE RECORDS SUMMARY | 2025-04-17 13:25 | XMS_ITS | Encounter Summary ---
Author Organization [facility] Address [address] [facility] [address] [place] [address] Phone Care Team Providers Care Deflash And Wash Operator Name Role Phone Sacha Choi DO Primary Care Provider [phone] Jimbo, Sacha Ronny DO Unavailable Misty Dougherty HYDROELECTRIC MACHINERY MECHANIC Unavailable [phone] Bhanuvaleria, Sacha Ronny DO Unavailable Encounter Details Date Type Department Care Team (Late st Contact Info) Description 04/21/2023 Procedure Pass [facility], [facility] [address] [place] [address] Social History Tobacco Use Types Packs/Day Years Used Date Smoking Tobacco: Former Cigarettes 1 15 0 01/10/2003 - 01/10/2018 Smokeless Tobacco: Never Alcohol Use Standard Drinks/Week Comments Yes 11 (1 standard drink = 0.6 oz pu re alcohol) Education Answer Date Recorded Are you interested in more education? Not on lupillo e 01/15/2023 Are you concerned about learning? Not on file 01/15/2023 No 01/15/2023 No 01/15/2023 Digital Access Answer Date Recorded No 02/12/2023 No 02/12/2023 Reliable internet access at home? Not on file 02/12/2023 Device with a working camera? Not on file Comments No Sex and Gender Information Value Date Recorded Sex Assigned at Female 04/13/2024 11:34 AM EDT Legal Sex Female 9:25 PM EDT Gender Identity Female 04/13/2024 11:34 AM EDT Sexual Orientation Bisexual 04/13/2024 11 :34 AM EDT documented as of this encounter Plan of Treatment Not on file documented as of this encounter Visit Diagnoses Not on filedocumented in this encounter Care Teams Deflash And Wash Operator Relationship Specialty Start Date End Date Sacha Choi DO PCP - General 07/05/17 Sacha Choi DO Historical LMR Provider 07/11/17 Misty Dougherty, JANINA [address] [place] [address] Historical LMR Provider 07/11/17 Sacha Choi DO [address] [place] [address] Insurance Assigned Provider 12/25/2308/20 documented as of this encounter Additional Source Comments The information contained in this document represents components of the legal health record. It is not the complete legal health record.[facility]
--- OUTSIDE RECORDS SUMMARY | 2025-04-17 13:25 | XMS_ITS | Data Portability ---
Author Organization [facility] Telehealth Patient Home Address [address] [place] [address] Assessment Encounter Date Assessment Date Assessment LastModified by Organization Details LastModified Time 11/14/2021 11/14/2021 Patient agreed and verbally consents to this audio and video Telehealth appt via a secure platform [email or web address] Not available 11/14/2021 15:39:08 09/29/2023 09/29/2023 [id number] [place] [id number] (DRY KILN BURNER) : MDM LOW MUST MEET 2 OF [...] Go To The Location Of Their Choice, [address] 10:28:32 progestero ne, serum 2023 024 ATHENAFAX [facility] (Centralized Electronic Ordering - All Locations), Patient Can Go To The Location Of Their Choice, 4 10:28:31 lh + FSH, serum 2023 024 [...] Their Choice, 10:28:31 lipid panel, blood 2023 024 [facility] (Centralized Electronic Ordering - All Locations), Patient Can Go To The Location Of Their Choice, 10:28:31 vitamin D, 25-hydroxy , total, serum 2023 024 [facility] (Centralized Electronic Ordering - All Locations), Patient Can Go To The Location Of Their Choice, 10:28:31 CMP, serum or plasma 2023 024 RAY [facility] (Centralized Electronic Ordering - All Locations), Patient Can Go To The Location Of Their Choice, [address] 4 07:08:50 hemoglobin A1c, QN, blood 2023 024 [facility] (Centralized Electronic Ordering - All Locations), Patient Can Go To The Location Of Their Choice, [address] 4 10:28:31 vitamin B12 + folate, serum or blood 2023 024 [facility] (Centralized Electronic Ordering - All Locations), Patient Can Go To The Location Of Their Choice, [address] 4 10:28:31 CMP, serum or plasma 2019 020 [facility], [address] [place] [address], [place], [address], 0 15:51:10 lipids, total, serum 2019 020 [facility], [address] [place] [address], [address], 0 15:51:10 CBC w/ auto diff 2019 020 [facility], [address] [place] [address], [place], [address], 0 15:51:10 Referral None recorded. Procedures None recorded. Surgeries None recorded. Imaging MRI, ankle, w/o contrast - Not Required Procedure codes: 86315 Call Reference #: [id number] Resolution : Completed on 05/03/2024 at 11:11 am. Call ref #[id number] 33. 2023 024 [email or web address] Not available 4 08:39:01 XR, foot, 3 or more view 2021 022 RAY Not available 2 14:23:15 Medication Orders azithromyc in 250 mg tablet 2023 024 [place] [address] [facility], [address] [place], [address], 4 10:05:21 venlafaxin e ER 37.5 mg capsule,ex tended release 24 hr 2021 022 [place] [facility], [address] [place], [address], 11:32:38 Patient TargetsNo targets recorded. Patient InstructionsNo instructions recorded. Reason for Referral None Reported. Results Created Date Observation Date Name Description Value Unit Range Abnormal Flag Note LastModifiedBy Organization Detail LastModifiedTime 06/26/20 20 06/26/2020 MAMMO , diagn ostic , digit al, bilat eral No observ ation record ed. [email or web address] [address], [address], 06/26/2020 16:05:34 06/30/20 21 06/30/2021 MAMMO , scree yakelin, digit al, bilat eral No observ ation record ed. [email or web address] [facility] [address] [place] [address], [address], 06/30/2021 09:00:09 11/25/19 22 11/24/2021 XR, foot, 3 or more view No observ ation record ed. [email or web address] [facility] [address] [place] [address], [address], 11/25/2021 10:55:50 07/06/20 22 07/03/2022 MAMMO , scree yakelin, digit al, bilat eral No observ ation record ed. [email or web address] [facility] [address] [place] [address], [address], 07/07/2022 08:15:42 07/08/20 23 07/05/2023 MAMMO , scree yakelin, digit al, bilat eral No observ ation record ed. [email or web address] [facility] [address] [place] [address], [address], 07/08/2023 14:12:28 Result Notes None recorded. Problems Name Problem SNOMED Code Status Onset Date Resolution Date Notes Provider Name and Address Organization Details Recorded Time Eczema 77295515 Active 2017 Not Available [facility] 3 10:38:38 Rosacea 936035069 Active 2017 Not Available [facility] 3 10:38:38 Umbilica l hernia 159526552 Active 2017 Not Available [facility] 3 10:38:38 Mood disorder 53476244 Active 2017 Not Available [facility] 3 10:38:38 Fracture of bone 036981070 Active 2017 fingers left hand Not Available [facility] 3 10:38:38 Bunion 123849844 Active 2017 Not Available [facility] 3 10:38:38 Singers' nodes 44094813 Active 2017 Not Available [facility] 3 10:38:38 Anxiety 37122342 Active 2021 Not Available [facility] 3 10:38:38 Atypical pneumoni a 876142284 Active 2023 Sacha Chio DO [address] [place] [address], [address], [facility] 4 15:43:12 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 Medical Equipment None [...] in Arterial blood by Pulse oximetry Systolic And Diastolic Provider Name and Address Organization Details Last Updated DateTime 0 154.94 cm 25.3 kg/m2 94517.0 2 g 76 /min 98 % 98 % 110/60 mm[Hg] Raiza Montgomery [facility] 0 15:36:49 Date Recorded Body height Body mass index (BMI) Body weight Heart rate Oxygen saturation Oxygen saturation in Arterial blood by Pulse oximetry Systolic And Diastolic Provider Name and Address Organization Details Last Updated DateTime 4 154.94 cm 26.1 kg/m2 13230.7 5 g 88 /min 98 % 98 % 130/78 mm[Hg] Anusha Michelle [facility] 4 10:07:54 Date Recorded Body height Body mass index (BMI) Body weight Oxygen saturation Oxygen saturation in Arterial blood by Pulse oximetry Heart rate Systolic And Diastolic Provider Name and Address Organization Details Last Updated DateTime 2 154.94 cm 26.1 kg/m2 22122.7 5 g 99 % 99 % 94 /min 128/80 mm[Hg] Becki Lambert [facility] 2 11:17:39 Social History Question Answer Notes LastModified by Organizat ion Details LastModified Time Tobacco Smoking Status Former Smoker Not Available [facility] 07/23/2020 03:36:24 What Was The Date Of Your Most Recent Tobacco Screening? 04/25/2024 [email or web address] Information not available 04/25/2024 How Many Years Have You Smoked Tobacco? 20 [id number] Information not available 07/23/2020 Sex: Unknown Functional Status Question Answer Note LastModified by Organization D etails LastModified Time Do you or have you ever used any other forms of tobacco or nicotine? No [email or web address] Information not available 04/25/2024 Mental Status None recorded. Family History Nothing Reported. Medical History No medical history recorded. Gynecological History Statement/Question Response LMP Unknown Obstetrics History GPAL:G 0 P 0 0 0 0 Immunizations Vaccine Type Date Status Note Provider Nam e and Address Organization Details Recorded Time COVID-19, mRNA, LNP-S, PF, 30 mcg/0.3 mL dose 1 completed Becki douglas [facility] 06/23/2022 08:47:25 COVID-19, mRNA, LNP-S, PF, 30 mcg/0.3 mL dose 1 completed Becki douglas [facility] 06/23/2022 08:47:32 COVID-19, mRNA, LNP-S, PF, 30 mcg/0.3 mL dose 1 completed Bceki douglas [facility] 06/23/2022 08:47:41 Influenza, split virus, quadrivalent, preservative 0 completed Becki douglas [facility] 06/23/2022 08:48:01 Past Encounters Encounter ID Performer Location Encounter Start Date Encounter Closed Date Diagnosis/Indication Diagnosis SNOMED-CT Code Diagnosis ICD10 Code Diagnosis Note [id number] Sacha Choi [facility] [address] [facility] [address] 01/10/2018 15:14:04 01/10/2018 15:45:05 Anxiety 30948964 F41.9 continue PRN lorazepam, keep appt with SACHIN DiazSW Sunburn of first degree 747453055 L55.0 OTC aloe, carry and use sunscreen when out doors [id number] Sacha Choi [facility] [address] [facility] [place] [facility] [place] [address] 04/04/2018 10:46:30 04/04/2018 11:55:10 Atypical chest pain 440901751 R07.89 unlikely acs in this low risk patient if cp changes quality/be comes suddenly severe/cru shing go to ed - pt understood , though I have low suspicion of this Diarrhea 05559722 R19.7 would recommend seeing GI for chronic diarrhea Gastroesop hageal reflux disease 874107952 K21.9 probable cause of chest pain in setting of normal ekg recommend daily prilosec for 2 weeks in addition to low acid diet [id number] Sacha Choi [facility] [address] [facility], [place] [address] 11/30/2018 15:34:17 11/30/2018 16:34:30 Hallux valgus AND bunion 308258611 M20.11 Bunion 708817370 M21.61 2 Varicose v eins of lower extremity 14965544 I83.91 Mood disorder 32068928 F 39 continue healthy activity [id number] Sacha Choi [facility] [address] [facility], [place] [address] 12/06/2019 15:24:04 12/06/2019 15:48:10 Adult health examination 317503461 Z00.00 Active or passive immunization 158370115 Z23 tdap thinks in ER approx 2013 [id number] Sacha Choi [facility] [address] [facility] [place] [facility] [place] [address] 11/14/2021 08:06:05 11/17/2021 16:55:55 Pain in right foot 2052748671 56408 M79.671 will fu with repeat XRs and fu with MRI as well after XRs are completed Mood disorder 48943276 F 30.10 stable Bunion 827775530 M21.61 1 stable [id number] Sacha Choi [facility] [address] [facility] [place] [facility] [place] [address] 06/23/2022 11:12:39 06/23/2022 11:46:05 Anxiety 91473837 F41.1 will start on venlafaxin e [id number] Sacha Choi [facility] [address] [facility] [place] [facility] [place] [address] 09/29/2023 07:58:27 09/29/2023 16:37:47 Atypical pneumonia 293011994 J18.9 post viral illness prob was rsv and now with atypical pneumonia [id number] [facility] [address] [facility] [place] [address] 04/25/2024 09:59:25 04/25/2024 11:12:44 Depression screening 837231733 Z13.31 negative Adult heal th examination 369313737 Z00.00 will set up with BW 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 agreed to bw Pain of le ft ankle joint 3383633741 7389914 M25.572 will set up with MRI Health Concerns Section Related Observation LastModified by Organization Detai ls LastModified Time None Recorded Concern Status LastModified by Organization Details LastModified Time None Recorded Advance Directives Directive None Recorded Payers Insurance Date Sequence Insurance Name Policy Number Policy Roberson Covered Member ID Roberson Member ID Guarantor Name 08/08/2024 1 [facility] ([facility]) [id number] Laura Donis [id number] Laura Donis OBGyn Episode No OBEpisode recorded.
--- OUTSIDE RECORDS SUMMARY | 2025-04-17 13:25 | XMS_ITS | Patient Health Record ---
Author Organization [facility] Address [address] [place] [address] Care Team Providers Care Distribution Field Engineer Name Role Phone Gary ROA, Ryan Primary Care Provider Unavail able Aminta, Scott Unavailable [phone] Allergies No Known Allergies Reason For Referral [...] Status Risk Notes Problem Acquired hallux valgus (48791860) Hallux valgus (acquired), left foot (M20.12) Active confirmed Problem Acquired hallux valgus (19082821) Hallux valgus (acquired), right foot (M20.11) Active confirmed Problem Osteoarthritis of midtarsal joint of right foot (5160229294496702 ) 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 Vital Signs Blood pressure diastolic 85 mm Hg 09/19/2024 Height 5ft1in in 09/19/2024 Blood pressure systolic 140 mm Hg 09/19/2024 Weight 150 lbs 09/19/2024 BMI 28.34 kg/m2 09/19/2024 Encounters Encounter Location Date Provider Diagnosis [facility] [address] [address] 09/19/2024 Csott Aminta Pain in left ankle and joints [...] Insured Coverage Start Date Coverage End Date [employer] [address] [place] [phone] [id number] aLura Donis Self - patient is the insured Medical (General) History Medical History History ICD Code Anxiety Depression Chicken pox Arthritis Eczema Surgical History Surgery Date(Month/Year) Meniscus repair 2007 umbilical hernia repair 2006 knee surgery
[2025-04-17 14:10] VITALS: BP 114/80; PULSE 72; TEMP 36.7; O2SAT 98; BMI 28.0
--- NOTE | 2025-04-17 14:10 | AM.OFFWIN_ITS ---
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 - The lump is occasionally sore and is l ocated above the left clavicle. - The patient denies fevers, nausea, vom iting, diarrhea, or changes in bowel habits. No recent GI illness. - The patient reports experiencing perim enopausal symptoms such as night sweats. Physical Exam General: Cooperative, healthy appearing, comfortable, no acute distress and well developed Orientation: Patient oriented x3 Limitations: No limitations Head: Normal to inspection Ears: Hearing grossly normal bilaterally Nose: Normal External nose present Face and sinus: Normal facial exam Mouth: Normal, moist oral mucosa Eyes: Appearance normal, both eyes and all related structures Neck: Normal visual inspection and Yes full ROM, palpable non mobile firm lump left supraclavicular lymph node Respiratory: Normal respiratory effort and able to speak in complete sentences. Skin: No rashes or lesions noted Neuro: Patient oriented x3 Extremities: Moving all extremities normally PFSH Medical History Umbilical hernia Surgical History Hx of hernia repair History of knee surgery Family History Paternal Grandmother FH: mental illness Family/Other FH: mental illness Daughter FH: mental illness Father HTN (hypertension) High cholesterol Diabetes Paternal Grandfather Diabetes Brain cancer Maternal Grandfather Prostate cancer Father HTN (hypertension) Social History Housing: House Patient Tobacco Use Status: Former Tobacco user e-Cigarette/Vaping Use: Currently Using Second Hand Smoke Exposure: No Substance Use Type: Marijuana Patient : No service: No Current occupational status: employed 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 Current occupational exposures/hazards: No Cognitive needs: No Hearing needs: No Vision needs: Yes Female Reproductive History Menstrual Age of Menarche: 11 Review of Systems Const All systems reviewed & are unremarkable except as noted in HPI and below Physical Exam Vital Signs: Last Vital Signs Temp 98.0 F 04/17/25 14:10 Pulse 72 04/17/25 14:10 BP 114/80 04/17/25 14:10 Pulse Ox 98 04/17/25 14:10 Oxygen Delivery Method Room Air 04/17/25 14:10 BMI result Body Mass Index 28.0 Assessment & Plan Assessment & Plan (1) Lymphadenopathy of head and neck: Code(s): R59.1 - Generalized enlarged lymph nodes Plan: Plan Patient was informed and verbally consented to the use of an ambient scribe for clinic note documentation during this visit 1. left sided supraclavicular lymphadenopathy - Messaged PCP with info and reques for an ultrasound of the supraclavicular area. - The patient will be contacted by the office to schedule the ultrasound or different plan as per PCP decision. - If it resolves, patient can cancel the US. Coding Level of Care Code Est Pt Level 3 (49370) Diagnoses Lymphadenopathy of head and neck R59.1
== END 2025-04-17 14:54 | disposition home or self-care (01) ==
PROVIDERS: PCP Nurse Practitioner Family; Visit Provider Physician Assistant
DX: R59.1 Generalized enlarged lymph nodes (principal)

== ENCOUNTER 2025-05-31 16:22 | Outpatient (REF) | payer OTHER, SELFPAY ==
--- NOTE | ~2025-05-31 | US_ITS ---
EXAMINATION: US HEAD NECK SOFT TISSUE HISTORY: R59.1 - Generalized enlarged lymph nodes COMPARISON: There are no prior studies available for comparison. FINDINGS: Sonographic examination of the palpable abnormality in the left supraclavicular region was performed. There is a 9 x 5 x 6 mm normal-appearing lymph node demonstrating a prominent fatty hilum and thin cortex. US/US soft tiss head and/or neck IMPRESSION: Normal-appearing 9 x 5 x 6 mm left supraclavicular lymph node corresponding to the palpable findings. Electronically signed by: Henrique Aguilar MD 06/01/2025 07:12 AM EDT
--- OUTSIDE RECORDS SUMMARY | 2025-05-31 18:55 | XMS_ITS | Encounter Summary ---
Author Organization [facility] Address [address] [facility] [address] [place] [address] Phone Care Team Providers Care Infection Preventionist Name Role Phone BhanuSacha shaw Primary Care Provider [phone] JimboSacha Ronny DO Unavailable Margie Tyler CNM Unavailable Misty Dougherty SCIENTIFIC LABORATORY SUPERVISOR Unavailable [phone] Bozena Caro SCIENTIFIC LABORATORY SUPERVISOR Unavailable Rashid Rainey MD Unavailable [phone] Samantha Bustamante MD Unavailable Celia Dolan SCIENTIFIC LABORATORY SUPERVISOR Unavailable [phone] Sacha Choi Ronny DO Unavailable Encounter Details Date Type Department Care Team (Late st Contact Info) Description 05/27/2020 Procedure Pass [facility], [address] [address] Social History Tobacco Use Types Packs/Day Years Used Date Smoking Tobacco: Former Cigarettes Q uit: 2018 Smokeless Tobacco: Never Alcohol Use Standard Drinks/Week Comments Yes 0 (1 standard drink = 0.6 oz pur e alcohol) Comments No Sex and Gender Information Value [...] on filedocumented in this encounter Care Teams Infection Preventionist Relationship Specialty Start Date End Date Jimbo Sacha JeffersonDO PCP - General 07/05/17 Sacha Choi DO [email or web address] Historical LMR Provider 07/11/17 Margie Tyler CNM [address] [place] [address] Historical LMR Provider 07/11/17 2 Misty Dougherty NP [address] [place] [address] [email or web address] Historical LMR Provider 07/11/17 Bozena Caro SCIENTIFIC LABORATORY SUPERVISOR [address] [place] [address] [email or web address] Historical LMR Provider 07/11/17 2 Rashid Rainey MD [address] [place] [address] [email or web address] Historical LMR Provider 07/11/17 09/27/21 [place] [address] [email or web address] Historical LMR Provider 07/11/17 09/27/21 Celia Dolan NP [address] [place] [address] Historical LMR Provider 07/11/17 2 Sacha Choi DO [address] [place] [address] [email or web address] Insurance Assigned Provider 12/25/2308/20 documented as of this encounter Additional Source Comments The information contained in this document represents components of the legal health record. It is not the complete legal health record.[facility]
--- OUTSIDE RECORDS SUMMARY | 2025-05-31 18:55 | XMS_ITS | Encounter Summary ---
Author Organization [facility] Address [facility] [address] [address] Phone Care Team Providers Care Coyote Hunter Name Role Phone Sacha Choi Primary Care Provider [phone] Sacha Choi DO Unavailable Margie Tyler CNM Unavailable Misty Dougherty COMPLIANCE REVIEW OFFICER Unavailable [phone] Bozena Caro COMPLIANCE REVIEW OFFICER Unavailable Rashid Rainey MD Unavailable Samantha Bustamante MD Unavailable Celia Dolan NP Unavailable [phone] Sacha Choi DO Unavailable Encounter Details Date Type Department Care Team (Late st Contact Info) Description 05/13/2020 Ancillary Orders [facility] [address] [place] [address] [place] [address] Misty Dougherty, COMPLIANCE REVIEW OFFICER [address] [place] [address] Breast screening Social History Tobacco Use Types Packs/Day Years [...] on file documented as of this encounter Results * BI MAMMOGRAM SCREENING WITH TOMOSYNTHESIS WITH CAD (BILATERAL) (06/26/2020 3:29 PM EDT) Anatomical Region Laterality Modality Breast Left, Breast Right, Breast Bilateral Bila teral Mammography 06/26/2020 3:38 PM EDT Impressions 06/26/2020 3:55 PM EDT No mammographic evidence of malignancy. Recommend routine annual surveillance. BI-RADS CATEGORY 2 - BENIGN DENSITY: The breast tissue is heterogeneously dense, an appearance which lowers the sensitivity of mammography. Narrative 06/26/2020 3:55 PM EDT 40-year-old female with no current breast symptoms. Comparison made to previous on 11/14/2018. Interpretation made in conjunction with computer-aided detection and tomosynthesis. The breasts are heterogeneously dense, which may obscure small masses. Stable punctate coarse microcalcifications in the posterior right breast. There are no suspicious masses, areas of architectural distortion, or suspicious clusters of microcalcifications. Misty Dougherty COMPLIANCE REVIEW OFFICER IMG MG EXAMS Final Result documented in this encounter Visit Diagnoses Diagnosis Breast screening Breast screening, unspecified Breast screening Breast screening, unspecified documented in this encounter Care Teams Coyote Hunter Relationship Specialty Start Date End Date Sacha Choi DO PCP - General 07/05/17 Sacha Choi DO Historical LMR Provider 07/11/17 Margie Tyler CNM [address] [place] [address] Historical LMR Provider 07/11/17 2 Misty Dougherty COMPLIANCE REVIEW OFFICER [address] [place] [address] [email or web address] Historical LMR Provider 07/11/17 Bozena Caro NP [address] [place] [address] [email or web address] Historical LMR Provider 07/11/17 2 Rashid Rainey MD [address] [address] Historical LMR Provider 07/11/17 09/27/21 [place] [address] [email or web address] Historical LMR Provider 07/11/17 09/27/21 Celia Dolan NP [address] [place] [address] Historical LMR Provider 07/11/17 2 Sacha Choi DO [address] [place] [address] [place] [address] [email or web address] Insurance Assigned Provider 12/25/2308/20 documented as of this encounter Additional Source Comments The information contained in this document represents components of the legal health record. It is not the complete legal health record.[facility]
--- OUTSIDE RECORDS SUMMARY | 2025-05-31 18:55 | XMS_ITS | Encounter Summary ---
Author Organization [facility] Address [address] [address] Phone Care Team Providers Care Jig Grinder Name Role Phone Sacha Choi DO Primary Care Provider [phone] Sacha Choi DO Unavailable Misty Dougherty FIELD MARKETING LEAD Unavailable [phone] Jimbo Sacha Jefferson DO Unavailable Encounter Details Date Type Department Care Team ([facility] st Contact Info) Description 04/21/2023 Transcribe Orders Virtual Department 30 [place] [address] Sacha Choi DO [address] [place] [address] [email or web address] Breast screening (Primary Dx) Social History Tobacco Use Types Packs/Day Years Used Date Smoking Tobacco: Former Cigarettes Q uit: 2018 Smokeless Tobacco: Never Alcohol Use Standard Drinks/Week Comments Not Currently 0 (1 standard drink = 0.6 oz pur e alcohol) Education Answer Date Recorded Are you [...] MAMMOGRAM SCREENING WITH TOMOSYNTHESIS WITH CAD (BILATERAL) (07/05/2023 3:53 PM EDT) Anatomical Region Laterality Modality Breast Left, Breast Right, Breast Bilateral Bila teral Mammography 07/08/2023 12:3 8 PM EDT Impressions 07/08/2023 12:44 PM EDT No findings suspicious for malignancy are identified. In the absence of a worrisome palpable abnormality, annual screening mammography is recommended. BI-RADS CATEGORY: 1 - Negative. DENSITY: The breast tissue is heterogeneously dense, which could obscure a lesion on mammography. Narrative 07/08/2023 12:44 PM EDT AVAILABLE COMPARISON: 11/14/2018 through 07/03/2022 Bilateral 3-D tomosynthesis with 2-D reconstructions in the CC and MLO projection. Computer-aided detection system was utilized. No new mass, asymmetry, architectural distortion or suspicious calcifications have become apparent in either breast. Procedure Note Ted Ochoa MD - 07/08/2023 AVAILABLE COMPARISON: 11/14/2018 through 07/03/2022 Bilateral 3-D tomosynthesis with 2-D reconstructions in the CC and MLOprojection. Computer-aided detection system was utilized. No new mass, asymmetry, architectural distortion or suspiciouscalcifications have become apparent in either breast. IMPRESSION: No findings suspicious for malignancy are identified. In the absence of aworrisome palpable abnormality, annual screening mammography isrecommended. BI-RADS CATEGORY: 1 - Negative. DENSITY: The breast tissue is heterogeneously dense, which could obscurea lesion on mammography. us Sacha A Bigda DO IMG MG EXAMS Final Result documented in this encounter Visit Diagnoses Diagnosis Breast screening- Primary Breast screening, unspecified Breast screening Breast screening, unspecified documented in this encounter Care Teams Jig Grinder Relationship Specialty Start Date End Date Sacha Choi DO PCP - General 07/05/17 Sacha Choi Historical LMR Provider 07/11/17 Misty Dougherty, JANINA [address] [place] [address] Historical LMR Provider 07/11/17 BhanuSacha shawDO [address] [place] [address] Insurance Assigned Provider 12/25/2308/20 documented as of this encounter Additional Source Comments The information contained in this document represents components of the legal health record. It is not the complete legal health record.[facility]
--- OUTSIDE RECORDS SUMMARY | 2025-05-31 18:55 | XMS_ITS | Encounter Summary ---
Author Organization [facility] Address [address] [facility] [address] [place] [address] Phone Care Team Providers Care Technical Training Instructor Name Role Phone Sahca Choi DO Primary Care Provider [phone] Jimbo, Sacha Ronny DO Unavailable Misyt Dougherty MACHINE TRACER Unavailable [phone] Bhanuvaleria, Sacha Ronny DO Unavailable Encounter Details Date Type Department Care Team (Late st Contact Info) Description 04/21/2023 Procedure Pass [facility], [facility] [address] [place] [address] Social History Tobacco Use Types Packs/Day Years [...] on filedocumented in this encounter Care Teams Technical Training Instructor Relationship Specialty Start Date End Date Sacha Choi DO PCP - General 07/05/17 Sacha Choi DO Historical LMR Provider 07/11/17 Misty Dougherty, JANINA [address] [place] [address] Historical LMR Provider 07/11/17 Sacha Choi DO [address] [place] [address] Insurance Assigned Provider 12/25/2308/20 documented as of this encounter Additional Source Comments The information contained in this document represents components of the legal health record. It is not the complete legal health record.[facility]
--- OUTSIDE RECORDS SUMMARY | 2025-05-31 18:56 | XMS_ITS | Encounter Summary ---
Author Organization [facility] Address [address] [address] Phone Care Team Providers Care Reinsurance Analyst Name Role Phone Sacha Choi DO Primary Care Provider [phone] Sacha Choi DO Unavailable Misty Dougherty DRAPERY AND UPHOLSTERY MEASURER Unavailable [phone] Sacha Choi DO Unavailable Encounter Details Date Type Department Care Team (Late st Contact Info) Description 04/27/2022 Procedure Pass [facility], [address] [address] Social History Tobacco Use Types Packs/Day Years [...] on filedocumented in this encounter Care Teams Reinsurance Analyst Relationship Specialty Start Date End Date Sacha Choi DO PCP - General 07/05/17 Sacha Choi DO [email or web address] Historical LMR Provider 07/11/17 Misty Dougherty NP [address] [place] [address] [email or web address] Historical LMR Provider 07/11/17 Sacha Choi DO [address] [place] [address] [email or web address] Insurance Assigned Provider 12/25/2308/20 documented as of this encounter Additional Source Comments The information contained in this document represents components of the legal health record. It is not the complete legal health record.[facility]
--- OUTSIDE RECORDS SUMMARY | 2025-05-31 18:56 | XMS_ITS | Clinical Summary ---
Author Organization [facility] Address [address] [facility] [address] [place] [address] Phone Care Team Providers Care Reagent Tender Name Role Phone Sacha Choi DO Primary Care Provider [phone] Sacha Choi DO Unavailable Misty Dougherty INSULATION BOARD HEAD SAW OPERATOR Unavailable [phone] Allergies No known active allergies Medications levonorgestrel (MIRENA UTRN) Active calcium-vits A5-K-X3-mineral s 166.75 mg- 166.75 unit Cap calcium Take one tablet once a day Active venlafaxine (EFFEXOR-XR) 37.5 MG 24 hr capsule 09/24/2022 Active Hospital, Clinic, or Other Facility Administered Medication Ordered Dose Route Frequency Start Date End Date Status levonorgestreL (MIRENA) 21 mcg/24 hours (8 yrs) 52 mg intrauterine device 1 eachIndications:Encounter for IUD removal and reinsertion 1 each Utrn Every 5 years 07/06/2023 Active Immunizations Immunization Administration Dates Next Due COVID-19 (Pre-07/12) Pfizer Vaccine, mRNA, PF Influenza Quadrivalent Preservative Free IM 07/21 Family History Medical History Relation Comments Hyperlipidemia Father Hypertension Father Depression Maternal Aunt COPD Mother Diabetes mellitus Paternal Grandfather Dementia Paternal Grandmother Stroke Paternal Grandmother Breast cancer Neg Hx Relation Status Comments Father Alive Maternal Aunt Mother Paternal Grandfather Paternal Grandmother Social History Tobacco Use Types Packs/Day Years Used Date Smoking Tobacco: Former Cigarettes 1 15 0 01/10/2003 - 01/10/2018 Smokeless Tobacco: Never Tobacco Cessation:Counseling Given: Not Answered Alcohol Use Standard Drinks/Week Comments Yes 11 [...] Orientation Bisexual 04/13/2024 11 :34 AM EDT Last Filed Vital Signs Vital Sign Reading Time Taken Comments Blood Pressure 138/84 07/05/2023 2:20 PM EDT Pulse - - Temperature - - Respiratory Rate - - Oxygen Saturation - - Inhaled Oxygen Concentration - - Weight 66.7 kg (147 lb) 07/05/2023 2:20 PM EDT Height 152.4 cm (5') 07/05/2023 2:20 PM EDT Body Mass Index 28.71 07/05/2023 2:20 PM EDT Plan of Treatment Health Maintenance Due Date Last Done Comments Adult Td,Tdap Booster 1978 DEPRESSION SCREENING 1990 SMOKING Hx and SMOKELESS TOBACCO SCREENING 1991 HEPATITIS C SCREENING 1996 HIV ONE-TIME SCREENING (18-65 YEARS) 1996 PAP SMEAR 10/31/2021 10/31/2018, 10/31/2018 COLOGUARD 2023 COLONOSCOPY 2023 COLORECTAL CANCER SCREENING 2023 FIT TEST 2023 FOBT 2023 SIGMOIDOSCOPY 2023 VIRTUAL COLONOSCOPY 2023 INFLUENZA VACCINE (#1) 2025 07/30/2020 COVID-19 VACCINE ( season) 2025 07/29/2021, 11/27/2020, 11/06/2020 MAMMOGRAM 07/05/2025 07/05/2023, 06/20, 06/30/2021, Additional history exists SCREENING FOR DIABETES 04/27/2027 04/27/2024 LIPID PANEL 04/27/2029 04/27/2024 IUD 07/05/2031 07/05/2023 HEPATITIS A VACCINES Aged Out No long er eligible based on patient's age to complete this topic HIB VACCINES Aged Out No longer eligi ble based on patient's age to complete this topic MENINGOCOCCAL VACCINES (ACWY) Aged Out No longer eligible based on patient's age to complete this topic MENINGOCOCCAL VACCINES (B) Aged Out N o longer eligible based on patient's age to complete this topic PNEUMOCOCCAL VACCINES (0-49 years) Aged Out No longer eligible based on patient's age to complete this topic Medical Devices Implanted Type Area Capacity Manager Device Identifier Shelf Expiration Date Model / Serial / Lot Iud Implanted: (Quantity not on file) Intrauterine Device Procedures Procedure Name Priority Date/Time Associated Diagnosis Comments BI MAMMOGRAM SCREENING WITH TOMOSYNTHESIS WITH CAD (BILATERAL) Routine 07/05/2023 3:53 PM EDT Breast screening PAP TEST Routine 10/31/2018 12:00 AM EST from Last 3 Months or Most Recently Relevant to Health Maintenance Results * BI MAMMOGRAM SCREENING WITH TOMOSYNTHESIS [...] Bigda DO IMG MG EXAMS Final Result * Pap Smear (10/31/2018 12:00 AM EST) 10/31/2018 11/01/2018 9:2 0 AM EST Narrative SEE NARRATIVE - 11/07/2018 2:39 [place] [address] Leasing Machine Tender: Paloma Britton MD [employer] Cytology Report FINAL DIAGNOSIS A. PAP SMEAR (SUREPATH) CE: SPECIMEN ADEQUACY: Satisfactory for evaluation; transformation zone present. INTERPRETATION: NEGATIVE FOR INTRAEPITHELIAL LESION OR MALIGNANCY. Coccobacilli consistent with shift in alexa Electronically Signed Out By: DOMINICK De La Rosa(ASCP) The Pap test is a screening test primarily for squamous cancers and precursors and has associated false-negative and false-positive results. New technologies such as liquid-based preparations may decrease but will not eliminate all false-negative results. Regular sampling and follow-up of unexplained clinical signs and symptoms are recommended to minimize false negative results. PROCEDURES/ADDENDA HPV Testing (Requested) Ordered Date: 11/01/2018 HPV Test Negative for high-risk human papillomavirus types 16, 18, 45 and the Other high risk probe set (Includes 31, 33, 35, 39, 51, 52, 56, 58, 59, 66, 68) by [employer] Onclarity HR-HPV analysis. Clinical correlation is advised. This HPV test was performed at [facility], [address] [place] [address]. This test has been FDA approved for SurePath cervical cytology specimens. The accuracy and precision of this test for all other specimen sources has been verified in the Cytopathology Laboratory of the [facility] and has not been cleared or approved by the U.S. Food and Drug Administration. Clinical correlation is advised. CLINICAL HISTORY Date of Last Menstrual Period: Not Provided Menstrual History: Unknown Contraceptive History: IUD Other Clinical Conditions: Screening Pap SPECIMEN SOURCE A: PAP SMEAR (SUREPATH) CE Patient Name: ETELVINA AMBER : 1980 (Age: 38) Sex: F Institution: [facility] Location: [facility] Date of Collection: 10/31/2018 Date of Reported: 11/07/2018 14:39 Results to: Misty Dougherty MSN, BS Misty Dougherty INSULATION BOARD HEAD SAW OPERATOR CYTOLOGY ORDERABLES Final Resu lt SEE NARRATIVE from Last 3 Months or Most Recently Relevant to [place] [id number] [facility] QU[facility] [employer] [facility] QUAL[facility] QUAL[facility] Care Teams Reagent Tender Relationship Specialty Start Date End Date Sacha Choi DO PCP - General 07/05/17 hBanuSacha shaw DO Historical LMR Provider 07/11/17 Misty Dougherty NP [address] [place] [address] [email or web address] Historical LMR Provider 07/11/17 Additional Source Comments The information contained in this document represents components of the legal health record. It is not the complete legal health record.[facility]
--- OUTSIDE RECORDS SUMMARY | 2025-05-31 18:56 | XMS_ITS | Patient Health Record ---
Author Organization [facility] [place] Address [address] [facility] [place] [address] Care Team Providers Care Vehicle Fuel Systems Converter Name Role Phone Gary ROA, Ryan Primary Care Provider Unavail able Aminta, Scott Unavailable [phone] Allergies No Known Allergies Reason For Referral [...] Status Risk Notes Problem Acquired hallux valgus (51644454) Hallux valgus (acquired), left foot (M20.12) Active confirmed Problem Acquired hallux valgus (19628627) Hallux valgus (acquired), right foot (M20.11) Active confirmed Problem Osteoarthritis of midtarsal joint of right foot (8307387020124696 ) 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 Vital Signs Blood pressure diastolic 85 mm Hg 09/19/2024 Height 5ft1in in 09/19/2024 Blood pressure systolic 140 mm Hg 09/19/2024 Weight 150 lbs 09/19/2024 BMI 28.34 kg/m2 09/19/2024 Encounters Encounter Location Date Provider Diagnosis [facility] [address] [address] 09/19/2024 Scott Aminta Pain in left ankle [...] Insured Coverage Start Date Coverage End Date [employer] [place] [address] [place] [id number] Laura Donis Self - patient is the insured Medical (General) History Medical History History ICD Code Anxiety Depression Chicken pox Arthritis Eczema Surgical History Surgery Date(Month/Year) Meniscus repair 2007 umbilical hernia repair 2006 knee surgery
--- OUTSIDE RECORDS SUMMARY | 2025-05-31 18:56 | XMS_ITS | Encounter Summary ---
Author Organization [facility] Address [address] [address] Phone Care Team Providers Care Hospitality Recruiter Name Role Phone Sacha Choi DO Primary Care Provider [phone] Sacha Choi DO Unavailable Misty Dougherty CRA Unavailable [phone] Sacha Choi DO Unavailable Encounter Details Date Type Department Care Team (Late st Contact Info) Description 04/27/2022 Transcribe Orders Virtual Department [address] [place] [address] Sacha Choi DO [address] [facility] [place] [address] [email or web address] Breast screening (Primary Dx) Social History Tobacco [...] MAMMOGRAM SCREENING WITH TOMOSYNTHESIS WITH CAD (BILATERAL) (07/03/2022 3:42 PM EDT) Anatomical Region Laterality Modality Breast Left, Breast Right, Breast Bilateral Bila teral Mammography 07/06/2022 6:17 PM EDT Impressions 07/06/2022 6:21 PM EDT BILATERAL BREASTS: Negative, no specific mammographic evidence of malignancy. Normal interval follow-up is recommended in 12 months. BI-RADS: BI-RADS CATEGORY: 1 - Negative. DENSITY: The breast tissue is heterogeneously dense, which could obscure a lesion on mammography. Narrative 07/06/2022 6:21 PM EDT STUDY: BI MAMMOGRAM SCREENING WITH TOMOSYNTHESIS WITH CAD (BILATERAL) TECHNIQUE: Bilateral full-field digital screening mammography is obtained and read in conjunction with computer-aided detection. Tomosynthesis as well as 2-D C view imaging were obtained. COMPARISON: Comparison made to multiple prior, most recent June 30, 2021, and most remote November 14, 2018. BREAST COMPOSITION: The breast tissue is heterogeneously dense, which may obscure small masses. BILATERAL BREASTS: No significant masses, suspicious calcifications or other abnormalities are seen in either breast. Procedure Note Juliet Calhoun MD - 07/06/2022 STUDY: BI MAMMOGRAM SCREENING WITH TOMOSYNTHESIS WITH CAD (BILATERAL) TECHNIQUE: Bilateral full-field digital screening mammography is obtainedand read in conjunction with computer-aided detection. Tomosynthesis aswell as 2-D C view imaging were obtained. COMPARISON: Comparison made to multiple prior, most recent June, and most remote November 14, 2018. BREAST COMPOSITION: The breast tissue is heterogeneously dense, which mayobscure small masses. BILATERAL BREASTS: No significant masses, suspicious calcifications orother abnormalities are seen in either breast. IMPRESSION: BILATERAL BREASTS: Negative, no specific mammographic evidence ofmalignancy. Normal interval follow-up is recommended in 12 months. BI-RADS: BI-RADS CATEGORY: 1 - Negative. DENSITY: The breast tissue is heterogeneously dense, which could obscurea lesion on mammography. us Sacha Choi DO IMG MG EXAMS Final Result documented in this encounter Visit Diagnoses Diagnosis Breast screening- Primary Breast screening, unspecified Breast screening Breast screening, unspecified documented in this encounter Care Teams Hospitality Recruiter Relationship Specialty Start Date End Date Sacha Choi PCP - General 07/05/17 Jimbo Sacha JeffersonDO Historical LMR Provider 07/11/17 Misty Dougherty NP [address] [place] [address] Historical LMR Provider 07/11/17 Sacha Choi RonnyDO [address] [place] [address] Insurance Assigned Provider 12/25/2308/20 documented as of this encounter Additional Source Comments The information contained in this document represents components of the legal health record. It is not the complete legal health record.[facility]
--- OUTSIDE RECORDS SUMMARY | 2025-05-31 18:56 | XMS_ITS | Encounter Summary ---
Author Organization [facility] Address [address] [employer] [facility] [address] [place] [address] Phone Care Team Providers Care Stamping Bench Die Maker Name Role Phone BhanuSacha shaw Primary Care Provider [phone] JimboSacha Ronny DO Unavailable Margie Tyler CNM Unavailable Misty Dougherty LEAD ANDROID DEVELOPER Unavailable [phone] Bozena Caro LEAD ANDROID DEVELOPER Unavailable Rashid Rainey MD Unavailable [phone] Samantha Bustamante MD Unavailable Celia Dolan LEAD ANDROID DEVELOPER Unavailable Sacha Choi DO Unavailable Encounter Details Date Type Department Care Team (Late st Contact Info) Description 05/12/2021 Procedure Pass [facility], [address] [address] Social History Tobacco Use Types Packs/Day Years [...] on filedocumented in this encounter Care Teams Stamping Bench Die Maker Relationship Specialty Start Date End Date Jimbo Sacha JeffersonDO PCP - General 07/05/17 Sacha Choi DO Historical LMR Provider 07/11/17 Margie Tyler CNM [address] [place] [address] Historical LMR Provider 07/11/17 2 Misty Dougherty NP [address] [place] [address] [email or web address] Historical LMR Provider 07/11/17 Bozena Caro LEAD ANDROID DEVELOPER [address] [place] [address] [email or web address] Historical LMR Provider 07/11/17 2 Rashid Rainey MD [address] [place] [address] [email or web address] Historical LMR Provider 07/11/17 09/27/21 Sam[place] [address] [email or web address] Historical LMR Provider 07/11/17 09/27/21 Celia Dolan NP [address] [place] [address] Historical LMR Provider 07/11/17 2 Sacha Cohi DO [address] [place] [address] [email or web address] Insurance Assigned Provider 12/25/2308/20 documented as of this encounter Additional Source Comments The information contained in this document represents components of the legal health record. It is not the complete legal health record.[facility]
--- OUTSIDE RECORDS SUMMARY | 2025-05-31 18:56 | XMS_ITS | Encounter Summary ---
Author Organization [facility] Address [address] [address] Phone Care Team Providers Care Aquatic Director Name Role Phone Sacha Choi DO Primary Care Provider [phone] Bhanuda, Sacha Jefferson DO Unavailable Misty Dougherty FLOOR SURFACER Unavailable [phone] Bigvaleria, Sacha Jefferson DO Unavailable Encounter Details Date Type Department Care Team (Latest Contact Info) Description 05/03/2024 Transcribe Orders Virtual Department [address] [place] [address] Loree Meyer PA 6 [facility] [place] [address] [place] [address] Pain in left ankle and joints of left foot (Primary Dx) Social History Tobacco Use Types [...] documented as of this encounter Visit Diagnoses Diagnosis Pain in left ankle and joints of left foot- Primary documented in this encounter Care Teams Aquatic Director Relationship Specialty Start Date End Date Sacha Choi DO PCP - General 07/05/17 Sacha Choi DO Historical LMR Provider 07/11/17 Misty Dougherty, FLOOR SURFACER [address] [place] [address] Historical LMR Provider 07/11/17 Sacha Choi DO [address] [place] [phone] Insurance Assigned Provider 12/25/2308/20 documented as of this encounter Additional Source Comments The information contained in this document represents components of the legal health record. It is not the complete legal health record.[facility]
--- OUTSIDE RECORDS SUMMARY | 2025-05-31 18:56 | XMS_ITS | Encounter Summary ---
Author Organization [facility] Address [address] [address] Phone Care Team Providers Care Behavior Analyst Name Role Phone Sacha Choi Primary Care Provider [phone] Bhanuda, Sacha Jefferson DO Unavailable Misty Dougherty COGNOS ADMINISTRATOR Unavailable [phone] Bigda, Sacha Jefferson DO Unavailable Encounter Details Date Type Department Care Team (Latest Contact Info) Description 11/14/2021 Transcribe Orders Virtual Department [address] [place] [address] Loree Meyer PA [address] [place] [address] [place] [address] Right foot pain (Primary Dx) Social History Tobacco Use Types [...] documented as of this encounter Results * XR FOOT 3 OR MORE VIEWS (RIGHT) (11/24/2021 1:58 PM EST) Anatomical Region Laterality Modality Foot Right Computed Radiogr aphy 11/24/2021 2:07 PM EST Impressions 11/24/2021 2:09 PM EST First MTP joint degenerative changes with hallux valgus. Narrative 11/24/2021 2:09 PM EST XR FOOT 3 OR MORE VIEWS (RIGHT) COMPARISON: Ankle radiographs dated 10/15/2014 FINDINGS: No evidence of acute fracture or dislocation. Severe first MTP joint space narrowing with small osteophytes, mild hallux valgus and mild hallux rigidus. No significant soft tissue swelling. The Lisfranc interval is maintained. No erosions. Procedure Note Angélica Castro MD - 11/24/2021 XR FOOT 3 OR MORE VIEWS (RIGHT) COMPARISON: Ankle radiographs dated 10/15/2014 FINDINGS: No evidence of acute fracture or dislocation. Severe first MTP joint spacenarrowing with small osteophytes, mild hallux valgus and mild halluxrigidus. No significant soft tissue swelling. The Lisfranc interval ismaintained. No erosions. IMPRESSION: First MTP joint degenerative changes with hallux valgus. Loree STANTON IMG XR LOWER EXTREMITY Lorraine l Result documented in this encounter Visit Diagnoses Diagnosis Right foot pain- Primary Pain in soft tissues of limb Right foot pain Pain in soft tissues of limb documented in this encounter Care Teams Behavior Analyst Relationship Specialty Start Date End Date Sacha Choi DO PCP - General 07/05/17 Sacha Choi DO Historical LMR Provider 07/11/17 Misty Dougherty NP [address] [place] [phone] [email or web address] Historical LMR Provider 07/11/17 Sacha Choi DO [address] [place] [phone] [email or web address] Insurance Assigned Provider 12/25/2308/20 documented as of this encounter Additional Source Comments The information contained in this document represents components of the legal health record. It is not the complete legal health record.[facility]
== END 2025-05-31 16:23 | disposition home or self-care (01) ==
LOC: HO.US 16:22
PROVIDERS: PCP Nurse Practitioner Family; Visit Provider Nurse Practitioner Family
DX: R59.1 Generalized enlarged lymph nodes (principal)
CPT/HCPCS: 76536

== ENCOUNTER → 2025-05-31 16:24 | Outpatient (BNV) | payer OTHER, SELFPAY | PROVIDERS: PCP Nurse Practitioner Family; Visit Provider Radiology Diagnostic Radiology | DX: R59.0 Localized enlarged lymph nodes (principal) | CPT/HCPCS: 76536 ==

== ENCOUNTER 2025-06-28 15:21 | Outpatient (AMB) | payer OTHER, SELFPAY ==
--- NOTE | 2025-06-28 15:31 | A.OFFVIS_ITS ---
Vital Signs 06/28/25 15:32 Height 5 ft 1 in Weight 148 lb BMI 28.0 BP 134/76 Blood Pressure Location Lt brachial Position Sitting Pulse 79 Pulse Oximetry (%) 98 Oxygen Delivery Method Room Air Intake Visit Reasons: Colonoscopy screening Intake Note: Patient new consult for 1st pre Colonoscopy screening. Patient denies any GI issues. Conference Planner Required: No Accompanied by: Self / Same As Patient Allergies No Known Allergies Allergy (Verified 06/28/25 15:30) Medication List - Last Reconciled 06/28/25 by Betty Cisneros CNP cholecalciferol (vitamin D3) 25 mcg PO DAILY levonorgestrel (Mirena) intrauterine mecobalamin (vitamin B12) 1,000 mcg PO DAILY multivitamin 1 tab PO DAILY HPI HPI Colonoscopy screening: Details: Patient is a 45-year-old female with PMH of anxiety. Referred by PCP for pre colonoscopy screening. Baseline bowel habits remain stable with daily bowel movements. Described as long-standing, intermittent loose stools or diarrhea, often occurring shortly (within ~1 hr) after eating, present since childhood. Diarrhea is episodic, not associated with abdominal pain, nausea, or vomiting, and is sometimes related to greasy foods. Noted dietary gas with certain foods (onions, peppers). No personal or family history of celiac disease, gluten intolerance, or gastrointestinal malignancy. Recent labs show mild persistent elevation in liver enzymes (improvement noted with lifestyle changes since Aug 2024), with prior elevated cholesterol also showing recent improvement. No constitutional or cardiopulmonary symptoms. Additional relevant comorbidities: past umbilical hernia repair, prior knee surgery. Patient denies: fever/chills, appetite changes, pyrosis, regurgitation,dysphasia, unintentional wt loss or melena/hematochezia. Social hx: -ETOH use, socially -: Occasional edible marijuana, primarily to assist with sleep; denies other recreational drug use -former smoker, cessation 2017 - family hx as below -denies personal hx of CA -denies significant cardiopulmonary history -tolerated anesthesia in the past without difficulty. [facility] Medical History (Updated 06/28/25 @ 15:40 by Betty Cisneros CNP) Colon cancer screening Umbilical hernia Surgical History Hx of hernia repair History of knee surgery Family History Paternal Grandmother FH: mental illness Family/Other FH: mental illness Daughter FH: mental illness Father HTN (hypertension) High cholesterol Diabetes Paternal Grandfather Diabetes Brain cancer Maternal Grandfather Prostate cancer Father HTN (hypertension) Social History Housing: House Patient Tobacco Use Status: Former Tobacco user e-Cigarette/Vaping Use: Currently Using Second Hand Smoke Exposure: No Substance Use Type: Marijuana service: No Current occupational status: employed 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 Current occupational exposures/hazards: No Cognitive needs: No Hearing needs: No Vision needs: Yes Female Reproductive History Menstrual Age of Menarche: 11 Review of Systems Const Reports as per HPI ENT Reports as per HPI Card Reports as per HPI Resp Reports as per HPI GI Reports as per HPI Reports as per HPI Physical Exam Vital Signs: Last Vital Signs Pulse 79 06/28/25 15:32 BP 134/76 06/28/25 15:32 Pulse Ox 98 06/28/25 15:32 Oxygen Delivery Method Room Air 06/28/25 15:32 BMI result Body Mass Index 28.0 Const General: healthy appearing, no acute distress and well developed Nutritional Appearance: average body habitus Orientation/consciousness: patient oriented x3 HEENT Head: Yes normal to inspection, Yes normocephalic and Yes atraumatic Face and sinus: Yes normal facial exam Eyes General: appearance normal, both eyes and all related structures Neck Neck: Yes normal visual inspection Resp Effort & Inspection: normal respiratory effort, able to speak in complete sentences, no tracheal deviation and symmetric chest movement Cardio Jugular venous distension: no JVD GI Inspection: Yes normal to inspection and No distended Palpation (GI): Soft to palpation, not firm, nontender and No hepatosplenomegaly present Auscultation: normal bowel sounds Neuro General: patient oriented x3 Gait exam (Neuro): Normal gait present Psych Appearance: grossly normal Mental Status: mental status grossly normal Speech and movement: Normal speech and movement present Affect: normal affect Attitude: cooperative Thought process: Normal thought process present Thought content: Normal thought content present Insight: Good insight present (Psych) Judgement: Good judgement present (Psych) Assessment & Plan Assessment & Plan (1) Colon cancer screening: Code(s): Z12.11 - Encounter for screening for malignant neoplasm of colon Category: Medical Plan: Average-risk initial CRC screening, age appropriate, no family history. Medications: -prescriptions for laxative tablets and MiraLax sent to pharmacy; instructions for Gatorade purchase and clear liquid diet given. Patient educated on scheduling process, procedure preparation, including avoiding certain foods and ensuring clear liquid intake Advised on necessity for ride post-procedure due to sedation. (2) Transaminitis: Code(s): R74.01 - Elevation of levels of liver transaminase levels Category: Medical Plan: Persistent, mildly elevated LFTs with improvement after diet/exercise; history of prior elevated cholesterol. Strong suspicion for fatty liver diease. DDX: Celiac disease (to be ruled out) VS Viral/autoimmune hepatitis (low suspicion) - Additional Testing: Repeat fasting LFTs; screening for celiac disease (serology); Agreeable to viral/autoimmune hepatitis serologies. - Medication Management: None at this time; review necessity for future lipid- lowering agents. - Lifestyle Recommendations: Continue current dietary modifications and exercise; avoid excessive alcohol; maintain healthy weight. - Follow-Up: Reassess after repeat labs per patient?s convenience (ideally after return from travel); f/u after primary physical or GI visit as needed. Plan Follow-up after colonoscopy or sooner as needed Time: I spent a total of 30 minutes on the date of encounter which includes: Preparing to see the patient (reviewed previous documentation, test results and medical history) Performing a medically appropriate exam and/or evaluation Ordering medications, tests, and procedures Documenting clinical information in the health record Orders: Orders Lipase Today R74.01 - Elevation of levels of liver transaminase levels Prothrombin Time INR Today R74.01 - Elevation of levels of liver transaminase levels Hepatitis A,B,C Profile Today R74.01 - Elevation of levels of liver transaminase levels Transglutaminase IgA Today R74.01 - Elevation of levels of liver transaminase levels Liver Panel Today R74.01 - Elevation of levels of liver transaminase levels Smooth Muscle Antibody Today R74.01 - Elevation of levels of liver transaminase levels Mitochondrial Antibody Today R74.01 - Elevation of levels of liver transaminase levels COREEN Reflex Titer and Pattern Today R74.01 - Elevation of levels of liver tra nsaminase levels Referrals GI Procedure Notification Z12.11 - Encounter for screening for malignant neoplasm of colon Medications: New bisacodyl Take per colonoscopy instructions 5 mg PO ONCE 4 tabs 0RF polyethylene glycol 3350 (Miralax) per colonoscopy prep instructions 238 grams PO ONCE 238 grams 0RF Coding Level of Care Code New Pt New Pt Level 3 (17767) Patient Type New Diagnoses Colon cancer screening Z12.11 Transaminitis R74.01
[2025-06-28 15:32] VITALS: BP 134/76; PULSE 79; O2SAT 98; BMI 28.0
== END 2025-06-28 16:02 | disposition home or self-care (01) ==
LOC: HO.HGI 15:22
PROVIDERS: PCP Nurse Practitioner Family; Visit Provider Nurse Practitioner Family
DX: Z01.818 Encounter for other preprocedural examination (principal); Z12.11 Encounter for screening for malignant neoplasm of colon; R74.01 Elevation of levels of liver transaminase levels
CPT/HCPCS: 99203

== ENCOUNTER 2025-08-27 15:16 | Outpatient (REF) | payer OTHER, SELFPAY ==
[2025-08-27 18:43] LABS: INTERNATIONAL NORM RATIO 1.1 (0.9-1.1); Prothrombin Time 13.9 SEC (11.2-13.5)
[2025-08-27 18:55] LABS: Alanine Aminotransferase 35 U/L (0-31); Albumin Level 5.1 g/dL (3.5-5.0); Alkaline Phosphatase 80 U/L (39-117); Aspartate Amino Transferase 24 U/L (5-31); Lipase 34 U/L (8-78); Total Protein 7.6 g/dL (6.5-8.0)
--- OUTSIDE RECORDS SUMMARY | 2025-08-28 00:48 | XMS_ITS | Data Portability ---
Author Organization [facility], [address] Address [address] [place] [address] Care Team Providers Care Computational Biologist Name Role Phone [facility] Primary Care Provider Assessment No assessment recorded. Plan of Treatment Reminders Order Date Submit Date Provider Last Modified By Organization Details Last Modified Time Details Appointments None recorded. Lab SARS CoV 2 (COVID-19) Ag, QL, IA, upper respiratory specimen 2024 025 [email or web address] 20994[facility], [address] [place] [address], [address], 5 09:07:11 rapid flu (A+B) 2024 025 [email or web address] _[facility], [address] [place] [address], [address], 5 09:07:12 Referral None recorded. Procedures None recorded. Surgeries None recorded. Imaging None recorded. Medication Orders Flonase Sensimist 27.5 mcg/actuati on nasal spray,suspe nsion 2024 025 [facility], [address] [place], [address], 5 09:07:14 doxycycline hyclate 100 mg capsule 2024 025 [place] [facility], [address] [place], [address], 5 09:07:15 Patient TargetsNo targets recorded. Patient Instructions Encounter Date Encounter Id Patient Instructions Last Modified By Organization Details Last Modified Time 10/01/2024 [id number] bronchitis: care instructions [email or web address] Not available 10/01/2024 09:07:11 Reason for Referral None Reported. Results Created Date Observation Date Name Description Value Unit Range Abnormal Flag Note LastModifiedBy Organization Detail LastModifiedTime 10/01/19 25 10/01/2024 rapid flu (A+B) Unknown Analyte negati ve Not Available [facility] [address] [place] [address], [address], 10/01/2024 08:47:03 10/01/19 25 10/01/2024 rapid flu (A+B) Unknown Analyte negati ve Not Available [address], [address], 10/01/2024 08:47:03 10/01/19 25 10/01/2024 rapid flu (A+B) Unknown Analyte n Not Available [address], [address], 10/01/2024 08:47:03 10/01/19 25 10/01/2024 rapid flu (A+B) Unknown Analyte yes Not Available [address] [place] [address], [address], 10/01/2024 08:47:03 10/01/19 25 10/01/2024 SARS CoV 2 (COVI D-19) Ag, QL, IA, upper respi rator y speci men Unknown Analyte negati ve Not Available [facility] [address] [place] [address], [address], 10/01/2024 08:46:56 10/01/19 25 10/01/2024 SARS CoV 2 (COVI D-19) Ag, QL, IA, upper respi rator y speci men Unknown Analyte n Not Available [facility] [address] [place], [address], 10/01/2024 08:46:56 10/01/19 25 10/01/2024 SARS CoV 2 (COVI D-19) Ag, QL, IA, upper respi rator y speci men Unknown Analyte yes Not Available [address] [place], [address], 10/01/2024 08:46:56 Result Notes None recorded. Problems Name Problem SNOMED Code Status Onset Date Resolution Date Notes Provider Name and Address Organization Details Recorded Time Anxiety 68156566 Active MAXIMINO Velarde [employer] 10/01/2024 08:43:21 Problem Notes None recorded. Medical [...] mass index (BMI) Body weight Oxygen saturation Pain severity - 0-10 verbal numeric rating [Score] - Reported Heart rate Respiratory rate Body temperature Systolic And Diastolic Provider Name and Address Organization Details Last Updated DateTime 5 152.4 cm 29.3 kg/m2 64117.8 6 g 99 % 5 95 /min 21 /min 99 [degF] 126/79 mm[Hg] Neri Mitchell [employer] 5 08:41:32 Social History Question Answer Notes LastModified [...] ICD10 Code Diagnosis IMO Codes Diagnosis Note [id number] [facility] [address] [address] 10/14/2016 15:53:01 10/14/2016 17:17:01 [id number] [facility] [address] [place] [address] 07/06/2022 14:38:16 07/06/2022 16:36:41 [id number] Cesar Gallardo DO [facility] [address] [place] [address] 10/01/2024 08:23:21 10/01/2024 09:10:48 Cough 91744968 R05.9 Given Hx and Sx will Rx [...] Roberson Member ID Guarantor Name 10/01/2024 1 [facility] Laura Sanchez Gagandeep [id number] Lauraher Donis 10/01/2024 1 [facility] [id number] Laura Cervantesbre [id number] Laura Cervantesbre Notes Date Note Type Note Provider Name and Address Organization Details Recorded Time 10/01/2024 text/html CoughReported by [email or web address] yo female c/o fever, productive cough, runny [...] Gallardo, DO [address] [place], [address], [place] - [facility] 10/01/2024 09:08:57 OBGyn Episode No OBEpisode recorded.
--- OUTSIDE RECORDS SUMMARY | 2025-08-28 00:48 | XMS_ITS | Encounter Summary ---
Author Organization [facility] Address [address] [address] Phone Care Team Providers Care Licensed Clinical Psychologist Name Role Phone Sacha Choi DO Primary Care Provider [phone] Sacha Choi DO Unavailable Misty Dougherty CONTRACT SPECIALIST Unavailable [phone] Sacha Choi DO Unavailable Encounter Details Date Type Department Care Team (Late st Contact Info) Description 04/27/2022 Procedure Pass [facility], [address] [address] Social History Tobacco Use Types Packs/Day Years [...] on filedocumented in this encounter Care Teams Licensed Clinical Psychologist Relationship Specialty Start Date End Date Sacha Choi DO PCP - General 07/05/17 Sacha Choi DO [email or web address] Historical LMR Provider 07/11/17 Misty Dougherty NP [address] [place] [address] [email or web address] Historical LMR Provider 07/11/17 Sacha Choi DO [address] [place] [address] [email or web address] Insurance Assigned Provider 12/25/2308/20 documented as of this encounter Additional Source Comments The information contained in this document represents components of the legal health record. It is not the complete legal health record.[facility]
--- OUTSIDE RECORDS SUMMARY | 2025-08-28 00:48 | XMS_ITS | Clinical Summary ---
Author Organization [facility] Address [address] [employer] [facility] [address] [place] [address] Phone Care Team Providers Care Cosmetics And Toiletries Salesperson Name Role Phone Sacha Choi DO Primary Care Provider [phone] Sacha Choi DO Unavailable Misty Dougherty BACKUP SAWYER Unavailable [phone] Allergies No known active allergies Medications levonorgestrel (MIRENA UTRN) Active calcium-vits T7-E-Z7-mineral s 166.75 mg- 166.75 unit Cap calcium [...] this topic Medical Devices Implanted Type Area It Risk And Assurance Senior Manager Device Identifier Shelf Expiration Date Model [...] SEE NARRATIVE - 11/07/2018 2:39 [place] [address] Publications Writer: Paloma Britton MD TRACK REPAIR LABORER Cytology Report FINAL DIAGNOSIS A. PAP SMEAR [...] 52, 56, 58, 59, 66, 68) by [employer] Onclarity HR-HPV analysis. Clinical correlation is advised. This HPV test was performed at [facility], [address] [place] [address]. This test has been FDA approved for SurePath cervical cytology specimens. The accuracy and precision of this test for all other specimen sources has been verified in the Cytopathology Laboratory of the [facility] and has not been cleared or approved by the U.S. Food and Drug Administration. Clinical correlation is advised. CLINICAL HISTORY Date of Last Menstrual Period: Not Provided Menstrual History: Unknown Contraceptive History: IUD Other Clinical Conditions: Screening Pap SPECIMEN SOURCE A: PAP SMEAR (SUREPATH) CE Patient Name: ETELVINA AMBER : 1980 (Age: 38) Sex: F Institution: [facility] Location: [facility] Date of Collection: 10/31/2018 Date of Reported: 11/07/2018 14:39 Results to: Misty Dougherty MSN, BS Misty Dougherty BACKUP SAWYER CYTOLOGY ORDERABLES Final Resu lt SEE NARRATIVE from Last 3 Months or Most Recently Relevant to Health [place] [id number] [facility] [employer] [facility] QU[facility] Care Teams Cosmetics And Toiletries Salesperson Relationship Specialty Start Date End Date Sacha Choi DO PCP - General 07/05/17 BhanuSacha shaw DO Historical LMR Provider 07/11/17 Misty Dougherty NP [address] [place] [address] [email or web address] Historical LMR Provider 07/11/17 Additional Source Comments The information contained in this document represents components of the legal health record. It is not the complete legal health record.[facility]
--- OUTSIDE RECORDS SUMMARY | 2025-08-28 00:48 | XMS_ITS | Encounter Summary ---
Author Organization [facility] Address [address] [facility] [address] [place] [address] Phone Care Team Providers Care Strap Folding Machine Operator Name Role Phone BhanuSacha shaw Primary Care Provider [phone] JimboSacha Ronny DO Unavailable Margie Tyler CNM Unavailable Misty Dougherty FOOD SPECIALIST Unavailable [phone] Bozena Caro FOOD SPECIALIST Unavailable Rashid Rainye MD Unavailable [phone] Samantha Bustamante MD Unavailable Celia Dolan FOOD SPECIALIST Unavailable [phone] Sacha Choi Ronny DO Unavailable Encounter Details Date Type Department Care Team (Late st Contact Info) Description 05/27/2020 Procedure Pass [facility], [address] [address] Social History Tobacco Use Types Packs/Day Years [...] on filedocumented in this encounter Care Teams Strap Folding Machine Operator Relationship Specialty Start Date End Date Jimbo Sacha JeffersonDO PCP - General 07/05/17 Sacha Choi DO [email or web address] Historical LMR Provider 07/11/17 Margie Tyler CNM [address] [place] [address] Historical LMR Provider 07/11/17 2 Misty Dougherty NP 30 [place] [address] [email or web address] Historical LMR Provider 07/11/17 Bozena Caro FOOD SPECIALIST [address] [place] [address] [email or web address] Historical LMR Provider 07/11/17 2 Rashid Rainey MD [address] [place] [address] [email or web address] Historical LMR Provider 07/11/17 09/27/21 Samantha [place] [address] [email or web address] Historical LMR Provider 07/11/17 09/27/21 Celia Dolan NP [address] [place] [address] Historical LMR Provider 07/11/17 2 Sacha Choi DO [address] [place] [address] [email or web address] Insurance Assigned Provider 12/25/2308/20 documented as of this encounter Additional Source Comments The information contained in this document represents components of the legal health record. It is not the complete legal health record.[facility]
--- OUTSIDE RECORDS SUMMARY | 2025-08-28 00:48 | XMS_ITS | Encounter Summary ---
Author Organization [facility] Address [address] [address] Phone Care Team Providers Care Onsite Case Manager Name Role Phone Sacha Choi DO Primary Care Provider [phone] Jimbo, Sacha Jefferson DO Unavailable Misty Dougherty EXPERIMENTAL PLASTICS FABRICATOR Unavailable [phone] Bigvaleria, Sacha Jefferson DO Unavailable Encounter Details Date Type Department Care Team (Latest Contact Info) Description 05/03/2024 Transcribe Orders Virtual Department [address] [place] [address] Loree Meyer PA [address] [facility] [place] [address] [place] [address] Pain in left ankle and joints of [...] Primary documented in this encounter Care Teams Onsite Case Manager Relationship Specialty Start Date End Date Sacha Choi DO PCP - General 07/05/17 Sacha Choi DO Historical LMR Provider 07/11/17 Misty Dougherty, EXPERIMENTAL PLASTICS FABRICATOR [address] [place] [address] Historical LMR Provider 07/11/17 Sacha Choi DO [address] [place] [address] Insurance Assigned Provider 12/25/2308/20 documented as of this encounter Additional Source Comments The information contained in this document represents components of the legal health record. It is not the complete legal health record.[facility]
--- OUTSIDE RECORDS SUMMARY | 2025-08-28 00:48 | XMS_ITS | Encounter Summary ---
Author Organization [facility] Address [address] [address] Phone Care Team Providers Care Accounts Receivable Bookkeeper Name Role Phone Sacha Choi DO Primary Care Provider [phone] Sacha Choi DO Unavailable Misty Dougherty SALESPERSON HEARING AIDS Unavailable [phone] Sacha Choi DO Unavailable Encounter Details Date Type Department Care Team (Late st Contact Info) Description 04/27/2022 Transcribe Orders Virtual Department [address] [place] [address] Sacha Choi DO [address] [facility] [place] [address] [email or web address] Breast screening (Primary Dx) Social History Tobacco [...] Right, Breast Bilateral Bila teral Mammography 07/06/2022 6:1 7 PM EDT Impressions 07/06/2022 6:21 PM EDT [...] dense, which could obscurea lesion on mammography. Sacha Choi DO IMG MG EXAMS Final Result documented in this encounter Visit Diagnoses Diagnosis Breast screening- Primary Breast screening, unspecified Breast screening Breast screening, unspecified documented in this encounter Care Teams Accounts Receivable Bookkeeper Relationship Specialty Start Date End Date Sacha Choi DO PCP - General 07/05/17 Bhanuvaleria Sacha JeffersonDO Historical LMR Provider 07/11/17 Misty Dougherty NP [address] [place] [address] Historical LMR Provider 07/11/17 Sacha Choi RonnyDO [address] [place] [address] Insurance Assigned Provider 12/25/2308/20 documented as of this encounter Additional Source Comments The information contained in this document represents components of the legal health record. It is not the complete legal health record.[facility]
--- OUTSIDE RECORDS SUMMARY | 2025-08-28 00:48 | XMS_ITS | Encounter Summary ---
Author Organization [facility] Address [address] [facility] [address] [place] [address] Phone Care Team Providers Care Respiratory Supervisor Name Role Phone Sacha Choi DO Primary Care Provider [phone] Jimbo, Sacha Ronny DO Unavailable Misty Dougherty ENCODING MACHINE OPERATOR Unavailable [phone] Jimbo, Sacha Ronny DO Unavailable Encounter Details Date Type Department Care Team (Late st Contact Info) Description 04/21/2023 Procedure Pass [facility] [address] [place] [address] Social History Tobacco Use Types Packs/Day Years [...] on filedocumented in this encounter Care Teams Respiratory Supervisor Relationship Specialty Start Date End Date Sacha Choi DO PCP - General 07/05/17 Sacha Choi DO Historical LMR Provider 07/11/17 Misty Dougherty, JANINA [address] [place] [address] Historical LMR Provider 07/11/17 Sacha Choi DO [address] [place] [address] Insurance Assigned Provider 12/25/2308/20 documented as of this encounter Additional Source Comments The information contained in this document represents components of the legal health record. It is not the complete legal health record.[facility]
--- OUTSIDE RECORDS SUMMARY | 2025-08-28 00:48 | XMS_ITS | Encounter Summary ---
Author Organization [facility] Address [facility] [address] [address] Phone Care Team Providers Care Vb Developer Name Role Phone Sacha Choi Primary Care Provider [phone] Sacha Choi DO Unavailable Margie Tyler CNM Unavailable Misty Dougherty PRINCIPAL PRODUCT MANAGER Unavailable [phone] Bozena Caro PRINCIPAL PRODUCT MANAGER Unavailable Rashid Rainey MD Unavailable Samantha Bustamante MD Unavailable Celia Dolan NP Unavailable [phone] Sacha Choi DO Unavailable Encounter Details Date Type Department Care Team (Late st Contact Info) Description 05/13/2020 Ancillary Orders [facility] [address] [place] [address] [place] [address] Misty Dougherty, PRINCIPAL PRODUCT MANAGER [address] [place] [address] Breast screening Social History Tobacco Use Types [...] or suspicious clusters of microcalcifications. Misty Dougherty PRINCIPAL PRODUCT MANAGER IMG MG EXAMS Final Result documented in this encounter Visit Diagnoses Diagnosis Breast screening Breast screening, unspecified Breast screening Breast screening, unspecified documented in this encounter Care Teams Vb Developer Relationship Specialty Start Date End Date Sacha Choi DO PCP - General 07/05/17 Sacha Choi DO Historical LMR Provider 07/11/17 Margie Tyler CNM 30 [place] [address] Historical LMR Provider 07/11/17 2 Misty Dougherty PRINCIPAL PRODUCT MANAGER 30 [place] [address] [email or web address] Historical LMR Provider 07/11/17 Bozena Caro NP [address] [place] [address] [email or web address] Historical LMR Provider 07/11/17 2 Rashid Rainey MD [address] [address] Historical LMR Provider 07/11/17 09/27/21 [place] [address] [email or web address] Historical LMR Provider 07/11/17 09/27/21 Celia Dolan NP [address] [place] [address] Historical LMR Provider 07/11/17 2 Sacha Choi DO [address] [place] [address] [place] [address] [email or web address] Insurance Assigned Provider 12/25/2308/20 documented as of this encounter Additional Source Comments The information contained in this document represents components of the legal health record. It is not the complete legal health record.[facility]
--- OUTSIDE RECORDS SUMMARY | 2025-08-28 00:48 | XMS_ITS | Encounter Summary ---
Author Organization [facility] Address [address] [facility] [address] [place] [address] Phone Care Team Providers Care Mail Order Biller Name Role Phone BhanuSacha shaw Primary Care Provider [phone] JimboSacha Ronny DO Unavailable Margie Tyler CNM Unavailable Misty Dougherty SHELL ASSEMBLER Unavailable [phone] Bozena Caro SHELL ASSEMBLER Unavailable Rashid Rainey MD Unavailable [phone] Samantha Bustamante MD Unavailable Celia Dolan SHELL ASSEMBLER Unavailable Sacha Choi Ronny DO Unavailable Encounter Details Date Type Department Care Team (Late st Contact Info) Description 05/12/2021 Procedure Pass [facility], [address] [address] Social History Tobacco Use Types Packs/Day Years [...] on filedocumented in this encounter Care Teams Mail Order Biller Relationship Specialty Start Date End Date Jimbo Sacha JeffersonDO PCP - General 07/05/17 Sacha Choi DO Historical LMR Provider 07/11/17 Margie Tyler CNM 30 [place] [address] Historical LMR Provider 07/11/17 2 Misty Dougherty NP 30 [place] [address] [email or web address] Historical LMR Provider 07/11/17 Bozena Caro SHELL ASSEMBLER [address] [place] [address] [email or web address] Historical LMR Provider 07/11/17 2 Rashid Rainey MD [address] [place] [address] [email or web address] Historical LMR Provider 07/11/17 09/27/21 [place] [address] [email or web address] Historical LMR Provider 07/11/17 09/27/21 Celia Dolan NP [address] [place] [address] Historical LMR Provider 07/11/17 2 Sacha Choi DO [address] [place] [address] [email or web address] Insurance Assigned Provider 12/25/2308/20 documented as of this encounter Additional Source Comments The information contained in this document represents components of the legal health record. It is not the complete legal health record.[facility]
--- OUTSIDE RECORDS SUMMARY | 2025-08-28 00:48 | XMS_ITS | Encounter Summary ---
Author Organization [facility] Address [address] [address] Phone Care Team Providers Care Marine Water Tender Name Role Phone Sacha Choi DO Primary Care Provider [phone] Sacha Choi DO Unavailable Misty Dougherty SPEECH INSTRUCTOR Unavailable [phone] Sacha Choi DO Unavailable Encounter Details Date Type Department Care Team ([facility] st Contact Info) Description 04/21/2023 Transcribe Orders Virtual Department [address] [place] [address] Sacha Choi DO [address] [facility] [place] [address] [email or web address] Breast screening (Primary Dx) Social History Tobacco [...] unspecified documented in this encounter Care Teams Marine Water Tender Relationship Specialty Start Date End Date Sacha Choi DO PCP - General 07/05/17 Sacha Choi Historical LMR Provider 07/11/17 Misty Dougherty, JANINA [address] [place] [address] Historical LMR Provider 07/11/17 BhanuSacha shawDO [address] [place] [address] Insurance Assigned Provider 12/25/2308/20 documented as of this encounter Additional Source Comments The information contained in this document represents components of the legal health record. It is not the complete legal health record.[facility]
--- OUTSIDE RECORDS SUMMARY | 2025-08-28 00:48 | XMS_ITS | Encounter Summary ---
Author Organization [facility] Address [address] [address] Phone Care Team Providers Care Jewelry Sales Representative Name Role Phone Sacha Choi Primary Care Provider [phone] Bhanuda, Sacha Jefferson DO Unavailable Misty Dougherty PROGRAMMABLE LOGIC CONTROLLER ASSEMBLER Unavailable [phone] Bigvaleria, Sacha Jefferson DO Unavailable Encounter Details Date Type Department Care Team (Latest Contact Info) Description 11/14/2021 Transcribe Orders Virtual Department 30 [place] [address] Loree Meyer PA [address] [place] [address] [place] [address] Right foot pain (Primary Dx) Social History [...] limb documented in this encounter Care Teams Jewelry Sales Representative Relationship Specialty Start Date End Date Sacha Choi DO PCP - General 07/05/17 Sacha Choi DO Historical LMR Provider 07/11/17 Misty Dougherty NP [address] [place] [address] [email or web address] Historical LMR Provider 07/11/17 Sacha Choi DO [address] [place] [address] [email or web address] Insurance Assigned Provider 12/25/2308/20 documented as of this encounter Additional Source Comments The information contained in this document represents components of the legal health record. It is not the complete legal health record.[facility]
--- OUTSIDE RECORDS SUMMARY | 2025-08-28 00:48 | XMS_ITS | Data Portability ---
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) : MDM LOW MUST MEET 2 OF [...] Go To The Location Of Their Choice, [id number] 10:28:32 progestero ne, serum 2023 024 AT[facility]FAX [...] Go To The Location Of Their Choice, [address] 4 07:08:50 hemoglobin A1c, QN, blood 2023 024 [facility] (Centralized Electronic Ordering - All Locations), Patient Can Go To The Location Of Their Choice, [address] 4 10:28:31 vitamin B12 + folate, serum or blood 2023 024 [facility] (Centralized Electronic Ordering - All Locations), Patient Can Go To The Location Of Their Choice, [address] 4 10:28:31 CMP, serum or plasma 2019 020 [facility], [address] [place] [address], [place], [address], 0 15:51:10 lipids, total, serum 2019 020 [facility], [address] [place] [address], [address], 0 15:51:10 CBC w/ auto diff 2019 020 [facility], [address] [place] [address], [place], [address], 0 15:51:10 Referral None recorded. Procedures None recorded. Surgeries None recorded. Imaging MRI, ankle, w/o contrast - Not Required Procedure codes: 37436 Call Reference #: [id number] Resolution : Completed on 05/03/2024 at 11:11 am. Call ref #[id number] 33. 2023 024 [email or web address] Not available 4 08:39:01 XR, foot, 3 or more view 2021 022 RAY Not available 2 14:23:15 Medication Orders azithromyc in 250 mg tablet 2023 024 [place] [address] [facility], [address] [place], [address], 4 10:05:21 venlafaxin e ER 37.5 mg capsule,ex tended release 24 hr 2021 022 [place] [facility], [address] [place], [address], 11:32:38 Patient TargetsNo targets recorded. Patient InstructionsNo instructions recorded. Reason for Referral None Reported. Results Created Date Observation Date Name Description Value Unit Range Abnormal Flag Note LastModifiedBy Organization Detail LastModifiedTime 06/26/20 20 06/26/2020 MAMMO , diagn ostic , digit al, bilat eral No observ ation record ed. [email or web address] [address], [address], 06/26/2020 16:05:34 06/30/20 21 06/30/2021 MAMMO , scree yakelin, digit al, bilat eral No observ ation record ed. [email or web address] [facility] [address] [place] [address], [address], 06/30/2021 09:00:09 11/25/19 22 11/24/2021 XR, foot, 3 or more view No observ ation record ed. [email or web address] [facility] [address] [place] [address], [address], 11/25/2021 10:55:50 07/06/20 22 07/03/2022 MAMMO , scree yakelin, digit al, bilat eral No observ ation record ed. [email or web address] [facility] [address] [place] [address], [id number], 07/07/2022 08:15:42 07/08/20 23 07/05/2023 MAMMO , scree yakelin, digit al, bilat eral No observ ation record ed. [email or web address] [facility] [address] [place] [address], [id number], 07/08/2023 14:12:28 Result Notes None recorded. Problems Name Problem SNOMED Code Status Onset Date Resolution Date Notes Provider Name and Address Organization Details Recorded Time Eczema 63261914 Active 2017 Not Available [facility] 3 10:38:38 Rosacea 883667781 Active 2017 Not Available [facility] 3 10:38:38 Umbilica l hernia 081778544 Active 2017 Not Available [facility] 3 10:38:38 Mood disorder 10354790 Active 2017 Not Available [facility] 3 10:38:38 Fracture of bone 139838279 Active 2017 fingers left hand Not Available [facility] 3 10:38:38 Bunion 623801518 Active 2017 Not Available [facility] 3 10:38:38 Singers' nodes 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 Active 2017 Not Available [facility] 3 10:38:38 Anxiety 82543690 Active 2021 Not Available [facility] 3 10:38:38 Atypical pneumoni a 121335885 Active 2023 Sacha Choi DO [address] [place] [address], [phone], [facility] 4 15:43:12 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 MAXIMINO BACK [address] [place] [address], [phone], [facility] 4 10:20:24 Pain of left ankle joint 81637140561 622505 Active 2023 MAXIMINO BACK [address] [place] [address], [address], [facility] 4 10:26:12 Problem Notes [...] (BMI) Body weight Heart rate Oxygen saturation Systolic And Diastolic Provider Name and Address Organization Details Last Updated DateTime 0 154.94 cm 25.3 kg/m2 41470.0 2 g 76 /min 98 % 110/60 mm[Hg] Raiza Montgomery [facility] 0 15:36:49 Date Recorded Body height Body mass index (BMI) Body weight Heart rate Oxygen saturation Systolic And Diastolic Provider Name and Address Organization Details Last Updated DateTime 4 154.94 cm 26.1 kg/m2 41599.7 5 g 88 /min 98 % 130/78 mm[Hg] Anusha Michelle [facility] 4 10:07:54 Date Recorded Body height Body mass index (BMI) Body weight Oxygen saturation Heart rate Systolic And Diastolic Provider Name and Address Organization Details Last Updated DateTime 2 154.94 cm 26.1 kg/m2 81681.7 5 g 99 % 94 /min 128/80 mm[Hg] Becki Lambert [facility] 2 11:17:39 Social History Question Answer Notes LastModified by Organizat ion Details LastModified Time Tobacco Smoking Status Former Smoker Not Available [facility] 07/[facility]/2020 03:36:24 What Was The Date Of Your Most Recent Tobacco Screening? 04/25/2024 [email or web address] Information not available 04/25/2024 How Many Years Have You Smoked Tobacco? 20 [id number] Information not available 07/23/2020 Sex: Unknown Functional Status Question Answer Note LastModified by Organization D etails LastModified Time Do you or have you ever used any other forms of tobacco or nicotine? No [email or web address] Information not available 04/25/2024 Mental Status None recorded. Family History Nothing Reported. Medical History No medical history recorded. Gynecological History Statement/Question Response LMP Unknown Obstetrics History GPAL:G 0 P 0 0 0 0 Immunizations Vaccine Type Date Status Note Provider Nam e and Address Organization Details Recorded Time COVID-19, mRNA, LNP-S, PF, 30 mcg/0.3 mL dose 1 completed Becki douglas [facility] 06/23/2022 08:47:25 COVID-19, mRNA, LNP-S, PF, 30 mcg/0.3 mL dose 1 completed Becki douglas [facility] 06/23/2022 08:47:32 COVID-19, mRNA, LNP-S, PF, 30 mcg/0.3 mL dose 1 completed Becki douglas [facility] 06/23/2022 08:47:41 Influenza, split virus, quadrivalent, preservative 0 completed Becki douglas [facility] 06/23/2022 08:48:01 Past Encounters Encounter ID Performer Location Encounter Start Date Encounter Closed Date Diagnosis/Indication Diagnosis SNOMED-CT Code Diagnosis ICD10 Code Diagnosis IMO Codes Diagnosis Note [id number] Sacha Choi DO [facility] [address] [facility],[place] [address] 01/10/2018 15:14:04 01/10/2018 15:45:05 Anxiety 61939195 F41.9 continue PRN lorazepam, keep appt with FREDDIE Diaz Sunburn of first degree 431976639 L55.0 OTC aloe, carry and use sunscreen when out doors [id number] Sacha Choi [facility] [address] [facility],[place] [address] 04/04/2018 10:46:30 04/04/2018 11:55:10 Atypical chest pain 048502709 R07.89 unlikely acs in this low risk patient if cp changes quality/be comes suddenly severe/cru shing go to ed - pt understood , though I have low suspicion of this Diarrhea 33984267 R19.7 would recommend seeing GI for chronic diarrhea Gastroesop hageal reflux disease 933479073 K21.9 probable cause of chest pain in setting of normal ekg recommend daily prilosec for 2 weeks in addition to low acid diet [id number] Sacha Choi [facility] [address] [facility],[place] [address] 11/30/2018 15:34:17 11/30/2018 16:34:30 Hallux valgus AND bunion 804545118 M20.11 Bunion 395216738 M21.61 2 Varicose v eins of lower extremity 95315498 I83.91 Mood disorder 49312013 F 39 continue healthy activity [id number] Sacha Choi [facility] [address] [facility],[place] [address] 12/06/2019 15:24:04 12/06/2019 15:48:10 Adult health examination 669107843 Z00.00 Active or passive immunization 104980395 Z23 tdap thinks in ER approx 2013 [id number] Sacha Choi [facility] [address] [facility] [facility], [place] [address] 11/14/2021 08:06:05 11/17/2021 16:55:55 Pain in right foot 9777690513 28998 M79.671 will fu with repeat XRs and fu with MRI as well after XRs are completed Mood disorder 86852360 F 30.10 stable Bunion 661521073 M21.61 1 stable [id number] Sacha Nahun Choi, [facility] [address] [facility] [address] [address] 06/23/2022 11:12:39 06/23/2022 11:46:05 Anxiety 09236026 F41.1 will start on venlafaxin e [id number] Sacha Choi [facility] [address] [facility] [address] [address] 09/29/2023 07:58:27 09/29/2023 16:37:47 Atypical pneumonia 450326004 J18.9 post viral illness prob was rsv and now with atypical pneumonia [id number] [facility] [address] [facility] [address] 04/25/2024 09:59:25 04/25/2024 11:12:44 Depression screening 617171208 Z13.31 negative Adult heal th examination 149901189 Z00.00 will set up with BW 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 agreed to bw Pain of le ft ankle joint 9983236546 0820085 M25.572 will set up with MRI Health Concerns Section Related Observation LastModified by Organization Detai ls LastModified Time None Recorded Concern Status LastModified by Organization Details LastModified Time None Recorded Advance Directives Directive None Recorded Payers Insurance Date Sequence Insurance Name Policy Number Policy Roberson Covered Member ID Roberson Member ID Guarantor Name 08/08/2024 1 [facility] [place] [id number] Laura Donis [id number] Laura Donis Notes Date Note Type Note [...] vision problems.ROS as noted in the HPI Nohelia KarenJESSYGIBRAN [address] [place], [address], [facility] 12/06/2019 15:47:43 2 text/html ROS [...] do alleviate the pain MAXIMINO BACK [address] [place], [address], [facility] 11/14/2021 15:51:09 10/04/202 2 text/html ROS as noted in the [...] the mostdecided on effexor MAXIMINO BACK [address] [place], [address], [facility] 06/23/2022 11:39:28 4 text/html ROS as noted in the HPI patient is evaluated via tele/video assessment per patient consent during current pandemic has been sick for the last 40 days on off and nasal congestion and cough and chest congestion Sacha Choi DO [address] [place], [address], [facility] 09/29/2023 15:44:57 4 text/html Annual [...] vision, patient reportsno vision problems. MAXIMINO BACK [address] [place], [address], [facility] 04/25/2024 10:40:07 OBGyn Episode No OBEpisode recorded.
[2025-08-28 04:47] LABS: HBS Num1 55.68 mIU/mL (0-7.99); HBc Num1 0.03 S/CO (0.00-0.79); HBsAGNum1 0.38 S/CO (0.00-0.99); Hepatitis A Antibody IgM 0.13 Index (0-0.79); Hepatitis B Surface Antigen Negative (Negative); ~HepC Num1 0.08 S/CO (0.00-0.79); ~Hepatitis A Antibody IgM Nonreactive (Nonreactive); ~Hepatitis B Surface Antibody REACTIVE (Nonreactive); ~Hepatitis C Antibody Nonreactive (Nonreactive)
[2025-08-29 21:43] LABS: Anti Nuclear Antibody Screen POSITIVE (NEGATIVE); Anti Nuclear Antibody Titer 1:40 titer
== END 2025-08-27 15:17 | disposition home or self-care (01) ==
LOC: HO.WFDLDS 15:16
PROVIDERS: Visit Provider Nurse Practitioner Family
DX: Z01.84 Encounter for antibody response examination (principal); Z51.81 Encounter for therapeutic drug level monitoring; R74.01 Elevation of levels of liver transaminase levels
CPT/HCPCS: 36415; 80076; 83690; 85610; 86015; 86038; 86039; 86364; 86381; 86704; 86706; 86709; 86803; 87340

== ENCOUNTER 2025-08-31 07:59 | Outpatient (AMB) | payer OTHER, SELFPAY ==
--- NOTE | 2025-08-31 08:01 | A.OFFPC_ITS ---
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 Is last menstrual period known: No Post menopausal: No Patient : No Allergies No Known Allergies Allergy (Verified 08/31/25 08:23) Medication List - Last Reconciled 08/31/25 by Brian Vega CNP bisacodyl 5 mg PO ONCE bisacodyl (Dulcolax (bisacodyl)) 20 mg (4 x 5 mg) PO ONCE 1 day cholecalciferol (vitamin D3) 25 mcg PO DAILY levonorgestrel (Mirena) intrauterine mecobalamin (vitamin B12) 1,000 mcg PO DAILY multivitamin 1 tab PO DAILY polyethylene glycol 3350 (Miralax) 238 grams PO ONCE polyethylene glycol 3350 (Miralax) 238 grams PO ONCE 1 dose Tobacco use date assessed: 08/31/25 Dental Screening Dental Screen Date: 08/31/25 Did you have a dental visit in the last 12 months?: Yes Did you have a dental problem in the last 6 months where you did not have access to dental care?: No Was dental information given to patient?: Patient has dentist HPI HPI Comments History of Present Illness Details 45-year-old female presents for an exten ded physical exam and review of recent liver panel blood work. She admits to taking vitamin D3 as prescribed. Acute issue(s) - She reports persistent hot flashes onl y at night for the past 2 months. Her symptoms interfere with her sleep, she sleeps an average for 4 hours nightly. She also attributes her poor sleep to work stressors. 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 She sleeps better on her days off and on weekends. Past Medical History Anxiety - Bunions of both feet - Arthritis of both feet - Eczema - Transaminitis Social History - Former smoker, smoked 0.5-1 pack daily x 20 years, quit in 2018. History of vaping, quit 6-9 months ago. Drinks 1-2 glasses of wine occasionally. Consumes cannabis gummies occasionally for sleep - Has been making healthy dietary choice s. Exercises routinely. Reports poor sleep, snores occasionally, has never had a sleep study Health maintenance - Last eye exam was within the past [address] Babcock - Last dental visit was within the past 1 year. She has a cleaning sheduled in 11/2025 - Last Tdap vaccine was in 08/24/2024 - Has not been vaccinated for the flu ; received the vaccination today - Last pap smear test was in 02/2025: Tab ormal - Last mammogram was in 09/19/2024: [facility]. [place] a [place] [facility] [place] Specialists - [facility] [place] [facility] Medical History Colon cancer screening Umbilical hernia Surgical History Hx of hernia repair History of knee surgery Family History Paternal Grandmother FH: mental illness Family/Other FH: mental illness Daughter FH: mental illness Father HTN (hypertension) High cholesterol Diabetes Paternal Grandfather Diabetes Brain cancer Maternal Grandfather Prostate cancer Father HTN (hypertension) Social History Housing: House Patient Tobacco Use Status: Former Tobacco user e-Cigarette/Vaping Use: Currently Using Second Hand Smoke Exposure: No Substance Use Type: Other service: No Current occupational status: employed 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 1. Little interest or pleasure in doing things: not at all 2. Feeling down, depressed, or hopeless: not at all 3. Trouble falling or staying asleep, or sleeping too much: nearly every day 4. Feeling tired or having little energy: more than half the days 5. Poor appetite or overeating: not at all 6. Feeling bad about yourself - or that you are a failure or have let yourself or your family down: not at all 7. Trouble concentrating on things, such as reading the newspaper or watching television: not at all 8. Moving or speaking so slowly that other people could have noticed. Or the opposite - being so fidgety or restless that you have been moving around a lot more than usual: not at all 9. Thoughts that you would be better off or of hurting yourself in some way: not at all Total score: 5 Depression Screening Interpretation: Positive Depression Screening Done: Yes 70408 - PHQ-9 Billing: Yes Source: Developed by Drs. Henrique Zapata, Marilynn Pastor, Jose Malcolm and colleagues, with an educational wandy from [employer]. Thrive Questionnaire Date Thrive assessed: 08/31/25 I am a: Patient What is your living situation today?: I have a steady place to live Within the past 12 months, did the food you bought not last and you didn't have the money to get more?: Never true Within the past 12 months, did you worry whether your food would run out before you got money to buy more?: Never true Do you have trouble paying for medicines?: No Do you have trouble getting transportation to medical appointments?: No Do you have trouble paying your heating and electricity bill?: No Do you have trouble taking care of your child, family member or friend?: No Do you have trouble with day-to-day activities such as bathing, preparing meals, shopping, managing finances, etc.?: No Are you currently unemployed and looking for a job?: No Are you interested in more education?: No Please select the resources that you would like help with: None Currently or been in a relationship where the following occur: No concerns reported THRIVE Score: 0 AUDIT C Alcohol Use Questionnaire (AUDIT-C) 1. How often do you have a drink containing alcohol?: 2-4 times a month 2. How many drinks containing alcohol do you have on a typical day when you are drinking?: 1 or 2 3. How often do you have six or more drinks on one occasion?: Never Total Score: 2 ISRAEL-7 AMB Questionnaire ISRAEL-7 Date ISRAEL - 7 assessed: 08/31/25 Feeling nervous, anxious, or on edge: 1 = Several days Not being able to stop or control worryin = Several days Worrying too much about different things: 1 = Several days Trouble relaxin = Not at all Being so restless that it is hard to sit still: 0 = Not at all Becoming easily annoyed or irritable: 0 = Not at all Feeling afraid as if something awful might happen: 0 = Not at all Total ISRAEL-7 score (0-4 normal; 5-9 mild; 10-14 moderate; 15-21 severe): 3 Source: Developed by Drs. Henrique Zapata, Marilynn Pastor, Jose Malcolm and colleagues, with an educational wandy from [employer]. ISRAEL-7 Assessment Billing ISRAEL-7 Assessment Tool: ISRAEL-7 Assessment 36075 Review of Systems Const Details: Const Denies chills, Denies fatigue, Denies fever(s), Denies headache(s) and Denies weakness ENT Denies dizziness and Denies headache(s) Card Denies chest pain, Denies lightheadedness, Denies dyspnea and Denies other (Palpitations) Resp Denies cough, Denies dyspnea, Denies wheezing and Denies other ( shortness of breath) GI Denies abdominal pain, Denies melena, Denies hematochezia, Denies change in bowel habits, Denies dyspepsia and Denies nausea Denies hematuria and Denies dysuria Musc Denies abnormal gait, Denies myalgias, Denies arthralgias, Denies numbness and Denies tingling Skin/Breast Denies rash, Denies unusual bruising and Denies wounds Neuro Denies abnormal gait, Denies dizziness, Denies headache(s), Denies memory loss, Denies numbness, Denies Sensory deficit (Neuro), Denies tingling and Denies weakness Psych Denies anxiety, Denies depression, Denies memory loss Endo Denies cold intolerance, Denies fatigue, Denies heat intolerance, Denies polydipsia and Denies polyuria Aller/Immun Denies wheezing Physical exam (Primary Care) Vital Signs: Last Vital Signs Temp 98.1 F 08/31/25 08:12 Pulse 75 08/31/25 08:12 Resp 16 08/31/25 08:12 BP 120/78 08/31/25 08:12 Pulse Ox 99 08/31/25 08:12 Oxygen Delivery Method Room Air 08/31/25 08:12 BMI result Body Mass Index 27.7 Tobacco/Smoking Status: Tobacco use Status Tobacco use date assessed 08/31/25 08/31/25 08:17 Patient Tobacco Use Status Former Tobacco user 08/31/25 08:12 e-Cigarette/Vaping Use Currently Using 08/31/25 08:12 PHQ-9: PHQ-9 Score PHQ-9: Total score 5 08/31/25 08:47 Depression Screening Interpretation: Positive Thrive Assessment: Date of Thrive Assessment Date Thrive assessed 08/31/25 08/31/25 08:17 Currently or been in a relationship where the following occur: No concerns reported Const Other: General: no acute distress and well developed Nutritional Appearance: well nourished Orientation/consciousness: patient oriented x3 HENMT Head: Yes normocephalic and Yes atraumatic Eyes General: appearance normal, both eyes and all related structures Pupils: Equal, round and reactive pupils present EOM: EOMs intact bilaterally Resp Effort & Inspection: normal respiratory effort Auscultation: clear to auscultation bilaterally Cardio Rate: regular rate Rhythm: regular rhythm Heart sounds: S1 normal heart sound present, S2 normal heart sound present, no gallops, no murmurs and no rubs GI Palpation (GI): No Abdominal aortic bruit present, Soft to palpation, nontender, No hepatosplenomegaly present and No Rebound tenderness present Auscultation: normal bowel sounds General: Yes no CVA tenderness Back/Spine/Pelvis Back: no CVA tenderness Cervical Spine: cervical ROM normal and No Cervical spine tenderness Thoracic/Lumbar Spine: thoraco-lumbar ROM normal, No pain with thoraco-lumbar ROM, No thoracic spinal tenderness and No lumbar spinal tenderness Extrem General: Yes normal to inspection, No edema and No calf tenderness Skin General: warm and dry. Normal skin color. Normal skin turgor Lesions: no lesions Rashes: no rashes Trauma: no lacerations or abrasions Wounds: no wounds Nails: normal Neuro General: patient oriented x3, gait normal and no focal neuro deficit Cranial nerves: Yes Equal, round and reactive pupils present Cognition (Neuro): normal cognition Gait exam (Neuro): Normal gait present Sensory Exam: No Sensory deficit (Neuro) Psych Appearance: grossly normal Affect: normal affect Attitude: cooperative Thought process: Normal thought process present Office Procedures Flu Questionnaire Does the patient have a severe egg allergy?: No Does the patient have severe life threatening allergies?: No Does the patient have a fever or illness today?: No Has the patient ever had Guillain-[place] Syndrome?: No Has the patient ever had any past reaction to a flu shot?: No Immunizations Fluarix [id number] (PF) 45 mcg (15 mcg x 3)/0.5 mL IM syringe Performing Provider: Brian Vega CNP [place] [facility] [place] [facility] Administered by: Daya Madrigal RN on 08/31/25 08:47 Dose Route Admin Location Dispensed Lot Number Expiration Date [employer] 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 Technician 0.5 mL IM Left Deltoid 0.5 mL [id number] 03/19/26 [id number] [employer] VIS Given Date VIS Provided VIS Publication Date 08/31/25 Single Vaccine 24 Eligibility Eligibility Date Funding Source Not [facility] Eligible 08/31/25 Private Coding Level of Care Code Est Pt Level 4 (43719) Est Pt Prev Care 40-64y(34880) Diagnoses Normal physical examination, routine Z00.00 Transaminitis R74.01 Hot flashes R23.2 Sleep disturbance G47.9 Snoring R06.83 Laboratory tests ordered as part of a complete physical exam (CPE) Z00.00 Additional Codes ISRAEL-7 Assessment Billing - ISRAEL-7 Assessment Tool: ISRAEL-7 Assessment 29320 ([id number]) PHQ-9 - 61470 - PHQ-9 Billing: Yes ([id number]) Assessment & Plan Assessment & Plan (1) Normal physical examination, routine: Code(s): Z00.00 - Encounter for general adult medical examination without abnormal findings Category: Medical Plan: No significant functional limitation noted. Continue current treatment regimen. Healthy diet and routine exercise encouraged. Perform fasting lab work a week before next visit. Follow-up in 2 months for transfer of care with a new provider within the practice. Return sooner with symptoms or concerns. Verbalized understanding and agreed with the plan. (2) Transaminitis: Code(s): R74.01 - Elevation of levels of liver transaminase levels Category: Medical Plan: Recent ALT is slightly elevated, 35, previous level was 54. AST is normal. Healthy diet/weight management encouraged. Will monitor liver enzyme annually or if clinically indicated. Verbalized understanding and agreed with the plan. (3) Hot flashes: Code(s): R23.2 - Flushing Category: Medical Plan: She reports persistent hot flashes only at night for the past 2 months. Her symptoms interfere with her sleep, she sleeps an average for 4 hours nightly. She snores occasionally and has never had a sleep study. She also attributes her poor sleep to work stressors. 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 She sleeps better on her days off and on weekends. Instructed on sleep hygiene. Referred to sleep medicine for a sleep study. Advised to follow-up with tow operator. Return with worsening or new symptoms. Verbalized understanding and agreed with the plan. (4) Sleep disturbance: Code(s): G47.9 - Sleep disorder, unspecified Category: Medical Plan: Plan as above. (5) Snoring: Code(s): R06.83 - Snoring Category: Medical Plan: Plan as above. (6) Laboratory tests ordered as part of a complete physical exam (CPE): Code(s): Z00.00 - Encounter for general adult medical examination without abnormal findings Category: Medical Plan: Fasting labs ordered as part of a complete physical exam. Advised to fast for at least 10 hours before getting labs drawn. May drink water Verbalized understanding and agreed with treatment plan. Orders: Orders Microalbumin, Random (w Creat) Today Z00.00 - Encounter for general adult medical examination without abnormal findings Vitamin D 25-OH Total Today Z00.00 - Encounter for general adult medical examination without abnormal findings Influenza [id number] Immunization Today Z23 - Encounter for immunization Basic Metabolic Panel Today Z00.00 - Encounter for general adult medical examination without abnormal findings Lipid Panel Today Z00.00 - Encounter for general adult medical examination without abnormal findings Complete Blood Count Auto Diff Today Z00.00 - Encounter for general adult medical examination without abnormal findings TSH reflex Free T4 Today Z00.00 - Encounter for general adult medical examination without abnormal findings UA CC w/rflx Micro + Cult Today Z00.00 - Encounter for general adult medical examination without abnormal findings Referrals Sleep Medicine Referral G47.9 - Sleep disorder, unspecified, R06.83 - Snoring
[2025-08-31 08:12] VITALS: BP 120/78; PULSE 75; RESP 16; TEMP 36.7; O2SAT 99; BMI 27.7
== END 2025-08-31 08:40 | disposition home or self-care (01) ==
LOC: HO.HMCFM 08:00
PROVIDERS: PCP Nurse Practitioner Family; Visit Provider Nurse Practitioner Family
DX: Z00.00 Encounter for general adult medical examination without abnormal findings (principal); R74.01 Elevation of levels of liver transaminase levels; R23.2 Flushing; G47.00 Insomnia, unspecified; R06.83 Snoring; Z23 Encounter for immunization

== ENCOUNTER → 2025-08-31 07:59 | Outpatient (BNVA) | payer OTHER, SELFPAY | PROVIDERS: PCP Nurse Practitioner Family; Visit Provider Nurse Practitioner Family | DX: Z00.00 Encounter for general adult medical examination without abnormal findings (principal); Z23 Encounter for immunization; R74.01 Elevation of levels of liver transaminase levels; R23.2 Flushing; G47.9 Sleep disorder, unspecified; R06.83 Snoring | CPT/HCPCS: 90471; 90656; 96127 ==

== ENCOUNTER 2025-09-06 07:35 | Day surgery (SDC) | payer OTHER, SELFPAY ==
--- OUTSIDE RECORDS SUMMARY | 2025-08-07 01:51 | XMS_ITS | Data Portability ---
Author Organization [facility] Address [address] [place] [address] Care Team Providers Care Cyber Security Administrator Name Role Phone [facility] Primary Care Provider Assessment No assessment recorded. Plan of Treatment Reminders Order Date Submit Date Provider Last Modified By Organization Details Last Modified Time Details Appointments None recorded. Lab SARS CoV 2 (COVID-19) Ag, QL, IA, upper respiratory specimen 2024 025 [email or web address] 20[facility], [address] [place] [address], [phone], 5 09:07:11 rapid flu (A+B) 2024 [address]25 [email or web address] _[facility], [address] [place] [address], [phone], 5 09:07:12 Referral None recorded. Procedures None recorded. Surgeries None recorded. Imaging None recorded. Medication Orders Flonase Sensimist 27.5 mcg/actuati on nasal spray,suspe nsion 2024 025 [facility], [address] [place], [address], 5 09:07:14 doxycycline hyclate 100 mg capsule 2024 025 [facility], [address] [place], [address], 5 09:07:15 Patient TargetsNo targets recorded. Patient Instructions Encounter Date Encounter Id Patient Instructions Last Modified By Organization Details Last Modified Time 10/01/2024 [id number] bronchitis: care instructions [email or web address] Not available 10/01/2024 09:07:11 Reason for Referral None Reported. Results Created Date Observation Date Name Description Value Unit Range Abnormal Flag Note LastModifiedBy Organization Detail LastModifiedTime 10/01/19 25 10/01/2024 rapid flu (A+B) Unknown Analyte negati ve Not Available [facility] [address] [place] [address], [phone], 10/01/2024 08:47:03 10/01/19 25 10/01/2024 rapid flu (A+B) Unknown Analyte negati ve Not Available [address], [phone], 10/01/2024 08:47:03 10/01/19 25 10/01/2024 rapid flu (A+B) Unknown Analyte n Not Available [address], [phone], 10/01/2024 08:47:03 10/01/19 25 10/01/2024 rapid flu (A+B) Unknown Analyte yes Not Available [address] [place] [address], [phone], 10/01/2024 08:47:03 10/01/19 25 10/01/2024 SARS CoV 2 (COVI D-19) Ag, QL, IA, upper respi rator y speci men Unknown Analyte negati ve Not Available [facility] [address] [place] [address], [phone], 10/01/2024 08:46:56 10/01/19 25 10/01/2024 SARS CoV 2 (COVI D-19) Ag, QL, IA, upper respi rator y speci men Unknown Analyte n Not Available [facility] [address] [place], [address], 10/01/2024 08:46:56 10/01/19 25 10/01/2024 SARS CoV 2 (COVI D-19) Ag, QL, IA, upper respi rator y speci men Unknown Analyte yes Not Available [address] [address] [place], [address], 10/01/2024 08:46:56 Result Notes None recorded. Problems Name Problem SNOMED Code Status Onset Date Resolution Date Notes Provider Name and Address Organization Details Recorded Time Anxiety 52106289 Active [facility] 10/01/2024 08:43:21 Problem Notes None recorded. [...] Last Updated DateTime 152.4 cm 29.3 kg/m2 71963.8 6 g 99 % 99 % 5 95 /min 21 /min 99 [degF] 126/79 mm[Hg] Neri Mitchell [facility] 08:41:32 Social History Question Answer Notes LastModified by Organizat ion Details LastModified Time Tobacco Smoking Status Former Smoker [facility] - [facility] 10/01/2024 08:45:18 Which Illicit [...] Diagnosis SNOMED-CT Code Diagnosis ICD10 Code Diagnosis IMO Codes Diagnosis Note [id number] 20[facility] [address] [place] [phone] 10/14/2016 15:53:01 10/14/2016 17:17:01 [id number] 2099[facility] [address] [address] 07/06/2022 14:38:16 07/06/2022 16:36:41 [id number] Cesar Gallardo DO [address] [address] [place] [phone] 10/01/2024 08:23:21 10/01/2024 09:10:48 Cough [id number] R05.9 Given Hx and Sx will Rx [...] Roberson Member ID Guarantor Name 10/01/2024 1 [facility] [place] Laura Sanchez Gagandeep [id number] aLura Donis 10/01/2024 1 [facility]: [facility] [place] [id number] Laura Sanchez Gagandeep [id number] Laura Cervantesbre Notes Date Note Type Note Provider Name and Address Organization Details Recorded Time 10/01/2024 text/html CoughReported by [email or web address] yo female c/o fever, productive cough, runny nose, malaise, x2 weeks, worse over last 2 days TMax 102last temp yesterday no asthmaformer smoker No chillsNo nauseaNo vomitingNo coughNo wheezeNo difficulty breathing or respiratory distressNo CPNo congestionNo sinus painNo ear painNo sore throatNo Abdominal painNo diarrheaNo myalgiaNo fatigueNo rashNo HANo dizzinessNo recent travel daugther has the flu ROS as noted in the HPI Cesar Gallardo, DO [address] [place], [address], [place] - [facility] 10/01/2024 09:08:57 OBGyn Episode No OBEpisode recorded.
--- OUTSIDE RECORDS SUMMARY | 2025-08-07 01:51 | XMS_ITS | Data Portability ---
Author Organization [facility] Telehealth Patient Home Address [address] [place] [address] Assessment Encounter Date Assessment Date Assessment LastModified by Organization Details LastModified Time 11/14/2021 11/14/2021 Patient agreed and verbally consents to this audio and video Telehealth appt via a secure platform [email or web address] Not available 11/14/2021 15:39:08 09/29/2023 09/29/2023 [id number] [place] [id number] (REGIONAL MARKETING DIRECTOR) : MDM LOW MUST MEET 2 OF [...] Go To The Location Of Their Choice, [address] 10:28:32 progestero ne, serum 2023 024 ATHENAFAX [...] Go To The Location Of Their Choice, [address] 4 07:08:50 hemoglobin A1c, QN, blood 2023 024 [facility] (Centralized Electronic Ordering - All Locations), Patient Can Go To The Location Of Their Choice, [address] 4 10:28:31 vitamin B12 + folate, serum or blood 2023 024 [facility] (Centralized Electronic Ordering - All Locations), Patient Can Go To The Location Of Their Choice, [address] 4 10:28:31 CMP, serum or plasma 2019 020 [facility], [address] [place] [address], [place], [address], 0 15:51:10 lipids, total, serum 2019 020 [facility], [address] [place] [address], [address], 0 15:51:10 CBC w/ auto diff 2019 020 [facility], [address] [place] [address], [place], [address], 0 15:51:10 Referral None recorded. Procedures None recorded. Surgeries None recorded. Imaging MRI, ankle, w/o contrast - Not Required Procedure codes: 68374 Call Reference #: [id number] Resolution : Completed on 05/03/2024 at 11:11 am. Call ref #[id number] 33. 2023 024 [email or web address] Not available 4 08:39:01 XR, foot, 3 or more view 2021 022 RAY Not available 2 14:23:15 Medication Orders azithromyc in 250 mg tablet 2023 024 [place] [address] [facility], [address] [place], [address], 4 10:05:21 venlafaxin e ER 37.5 mg capsule,ex tended release 24 hr 2021 022 [place] [facility], [address] [place], [address], 11:32:38 Patient TargetsNo targets recorded. Patient InstructionsNo instructions recorded. Reason for Referral None Reported. Results Created Date Observation Date Name Description Value Unit Range Abnormal Flag Note LastModifiedBy Organization Detail LastModifiedTime 06/26/20 20 06/26/2020 MAMMO , diagn ostic , digit al, bilat eral No observ ation record ed. [email or web address] [address], [address], 06/26/2020 16:05:34 06/30/20 21 06/30/2021 MAMMO , scree yakelin, digit al, bilat eral No observ ation record ed. jbigda [facility] [address] [place] [address], [address], 06/30/2021 09:00:09 11/25/19 22 11/24/2021 XR, foot, 3 or more view No observ ation record ed. [email or web address] [facility] [address] [place] [address], [address], 11/25/2021 10:55:50 07/06/20 22 07/03/2022 MAMMO , scree yakelin, digit al, bilat eral No observ ation record ed. [email or web address] [facility] [address] [place] [address], [address], 07/07/2022 08:15:42 07/08/20 23 07/05/2023 MAMMO , scree yakelin, digit al, bilat eral No observ ation record ed. [email or web address] [facility] [address] [place] [address], [address], 07/08/2023 14:12:28 Result Notes None recorded. Problems Name Problem SNOMED Code Status Onset Date Resolution Date Notes Provider Name and Address Organization Details Recorded Time Eczema 76285633 Active 2017 Not Available [facility] 3 10:38:38 Rosacea 942473388 Active 2017 Not Available [facility] 3 10:38:38 Umbilica l hernia 916657503 Active 2017 Not Available [facility] 3 10:38:38 Mood disorder 63672070 Active 2017 Not Available [facility] 3 10:38:38 Fracture of bone 145854936 Active 2017 fingers left hand Not Available [facility] 3 10:38:38 Bunion 507871322 Active 2017 Not Available [facility] 3 10:38:38 Singers' nodes 11218188 Active 2017 Not Available [facility] 3 10:38:38 Anxiety 83070862 Active 2021 Not Available [facility] 3 10:38:38 Atypical pneumoni a 091686611 Active 2023 Sacha Choi DO [address] [place] [address], [address], [facility] 4 15:43:12 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 MAXIMINO BACK [address] [place] [address], [address], [facility] 4 10:20:24 Pain of left ankle joint 04606051241 660621 Active 2023 MAXIMINO BACK [address] [place] [address], [address], [facility] 4 10:26:12 Problem Notes None [...] Updated DateTime 0 154.94 cm 25.3 kg/m2 42104.0 2 g 76 /min 98 % 98 % 110/60 mm[Hg] Raiza Montgomery [facility] 0 15:36:49 Date Recorded Body height Body mass index (BMI) Body weight Heart rate Oxygen saturation Oxygen saturation in Arterial blood by Pulse oximetry Systolic And Diastolic Provider Name and Address Organization Details Last Updated DateTime 4 154.94 cm 26.1 kg/m2 23172.7 5 g 88 /min 98 % 98 % 130/78 mm[Hg] Anusha Michelle [facility] 4 10:07:54 Date Recorded Body height Body mass index (BMI) Body weight Oxygen saturation Oxygen saturation in Arterial blood by Pulse oximetry Heart rate Systolic And Diastolic Provider Name and Address Organization Details Last Updated DateTime 2 154.94 cm 26.1 kg/m2 55970.7 5 g 99 % 99 % 94 /min 128/80 mm[Hg] Becki Lambert [facility] 2 11:17:39 Social History Question Answer Notes LastModified by Organizat ion Details LastModified Time Tobacco Smoking Status Former Smoker Not Available [facility] 07/23/2020 03:36:24 What Was The Date Of Your Most Recent Tobacco Screening? 04/25/2024 [email or web address] Information not available 04/25/2024 How Many Years Have You Smoked Tobacco? 20 [id number] Information not available 07/23/2020 Sex: Unknown Functional Status Question Answer Note LastModified by Organization D etails LastModified Time Do you or have you ever used any other forms of tobacco or nicotine? No [email or web address] Information not available 04/25/2024 Mental Status None recorded. Family History Nothing Reported. Medical History No medical history recorded. Gynecological History Statement/Question Response LMP Unknown Obstetrics History GPAL:G 0 P 0 0 0 0 Immunizations Vaccine Type Date Status Note Provider Nam e and Address Organization Details Recorded Time COVID-19, mRNA, LNP-S, PF, 30 mcg/0.3 mL dose 1 completed Becki douglas [facility] 06/23/2022 08:47:25 COVID-19, mRNA, LNP-S, PF, 30 mcg/0.3 mL dose 1 completed Becki douglas [facility] 06/23/2022 08:47:32 COVID-19, mRNA, LNP-S, PF, 30 mcg/0.3 mL dose 1 completed Becki douglas [facility] 06/23/2022 08:47:41 Influenza, split virus, quadrivalent, preservative 0 completed Becki douglas [facility] 06/23/2022 08:48:01 Past Encounters Encounter ID Performer Location Encounter Start Date Encounter Closed Date Diagnosis/Indication Diagnosis SNOMED-CT Code Diagnosis ICD10 Code Diagnosis IMO Codes Diagnosis Note [id number] Sacha Choi [facility] [address] [facility] [facility] [address] 01/10/2018 15:14:04 01/10/2018 15:45:05 Anxiety 64703387 F41.9 continue PRN lorazepam, keep appt with FREDDIE Diaz Sunburn of first degree 927519845 L55.0 OTC aloe, carry and use sunscreen when out doors [id number] Sacha Choi [facility] [address] [facility] [address] 04/04/2018 10:46:30 04/04/2018 11:55:10 Atypical chest pain 514703437 R07.89 unlikely acs in this low risk patient if cp changes quality/be comes suddenly severe/cru shing go to ed - pt understood , though I have low suspicion of this Diarrhea 17323981 R19.7 would recommend seeing GI for chronic diarrhea Gastroesop hageal reflux disease 297119673 K21.9 probable cause of chest pain in setting of normal ekg recommend daily prilosec for 2 weeks in addition to low acid diet [id number] Sacha Choi [facility] [address] [facility], [place] [address] 11/30/2018 15:34:17 11/30/2018 16:34:30 Hallux valgus AND bunion 995162065 M20.11 Bunion 554657032 M21.61 2 Varicose v eins of lower extremity 40402720 I83.91 Mood disorder 65208059 F 39 continue healthy activity [id number] Sacha Choi [facility] [address] [facility] [address] 12/06/2019 15:24:04 12/06/2019 15:48:10 Adult health examination 606207675 Z00.00 Active or passive immunization 859191861 Z23 tdap thinks in ER approx 2013 [id number] Sacha Choi [facility] [address] [facility] [facility] [address] 11/14/2021 08:06:05 11/17/2021 16:55:55 Pain in right foot 4271895255 24345 M79.671 will fu with repeat XRs and fu with MRI as well after XRs are completed Mood disorder 99786606 F 30.10 stable Bunion 933634356 M21.61 1 stable [id number] Sacha Choi [facility] [address] [facility] [address] 06/23/2022 11:12:39 06/23/2022 11:46:05 Anxiety 76186189 F41.1 will start on venlafaxin e [id number] Sacha Choi [facility] [address] [facility] [facility] [place] [address] 09/29/2023 07:58:27 09/29/2023 16:37:47 Atypical pneumonia 557008327 J18.9 post viral illness prob was rsv and now with atypical pneumonia [id number] [facility] [address] [facility] [address] 04/25/2024 09:59:25 04/25/2024 11:12:44 Depression screening 436509089 Z13.31 negative Adult heal th examination 005552958 Z00.00 will set up with BW 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 agreed to bw Pain of le ft ankle joint 1251223293 7309307 M25.572 will set up with MRI Health Concerns Section Related Observation LastModified by Organization Detai ls LastModified Time None Recorded Concern Status LastModified by Organization Details LastModified Time None Recorded Advance Directives Directive None Recorded Payers Insurance Date Sequence Insurance Name Policy Number Policy Roberson Covered Member ID Roberson Member ID Guarantor Name 08/08/2024 1 [facility] ([facility] [id number] Laura Donis [id number] Laura Donis Notes Date Note Type Note Provider Name a nd Address Organization Details Recorded Time 0 text/html Annual WellnessReported by PatientSocial/Behavio ral HistoryFor diet and nutrition, patient reportshealthy dietanddiscussed vitamin and supplement use. For fracture risk, patient reportsno recent explained fracture. For physical activity, patient reportsexercises on a regular basis. For additional lifestyle factors, patient reportsno tobacco useanddrinks alcohol (mild-moderate).Menta l Status:For depression risk, patient reportshistory of depression (not on meds, feels under control).Functional AbilityFor hearing, patient reportsno loss of hearing. For vision, patient reportsno vision problems.ROS as noted in the HPI December JAVIER Jones [address] [place], [address], [facility] 12/06/2019 15:47:43 2 text/html ROS as noted in the HPI c/o right foot pain x years telemedicine [...] do alleviate the pain MAXIMINO BACK [address] [place], [address], [facility] 11/14/2021 15:51:09 2 text/html ROS as noted in the HPI f/u anxiety and depression the patient reports [...] the mostdecided on effexor MAXIMINO BACK [address] [place], [address], [facility] 06/23/2022 11:39:28 4 text/html ROS as noted in the HPI patient is evaluated via tele/video assessment per patient consent during current pandemic has been sick for the last 40 days on off and nasal congestion and cough and chest congestion Sacha Choi DO [address] [place], [address], [facility] 09/29/2023 15:44:57 4 text/html Annual WellnessReported by PatientSocial/Behavio ral HistoryFor diet and nutrition, patient reportshealthy diet,discussed vitamin and supplement use,discussed portion control,discussed maintaining calcium balance, anddiscussed diet improvement. For fracture risk, patient reportsno history of fractures,no recent explained fracture,no sudden unexplained fractures, andno previous musculoskeletal injuries. For physical activity, patient reportsexercises on a regular basis,recent increase in physical activity,good physical condition,discussed weightbearing activities, anddiscussed exercise habits. For additional lifestyle factors, patient reportsno tobacco useanddrinks alcohol (mild-moderate).Menta l Status:For depression risk, patient reportsnever feels sad, empty, or tearful,no loss of interest in activities,no significant changes in weight,no sleep disturbances or insomnia,no agitation,no loss of energy,no feelings of worthlessness or guilt,no thoughts of suicide,no history of depression, andno history of mood disorders.Functional AbilityFor hearing, patient reportsno loss of hearing. For vision, patient reportsno vision problems. MAXIMINO BACK [address] [place] [address], [place], [address], [facility] 04/25/2024 10:40:07 OBGyn Episode No OBEpisode recorded.
--- NOTE | 2025-09-03 13:32 | HO.ANESPROP2 ---
Documented by User: Sonya Rodriguez NP 09/03/25 13:33 HPI - Anesthesia Eval Consult details Narrative: 45 yr old female for colonoscopy ?ELZA: referred for sleep study at 08/31/25 PCP visit [facility] Active Problems Active Problems: All Active Problems (Updated 08/31/25 @ 11:36 by Brian Vega CNP) Snoring (Acute) Sleep disturbance (Acute) Hot flashes (Acute) Colon cancer screening (Acute) Lymphadenopathy of head and neck (Acute) Well woman exam (Acute) Elevated blood pressure reading in office without diagnosis of hypertension (Acute) Varicose veins of right lower extremity (Acute) Grieving (Acute) Hot flash due to medication (Acute) Hyperlipidemia (Acute) Transaminitis (Acute) Elevated fasting glucose (Acute) Viral upper respiratory illness (Acute) Eye exam, routine (Acute) Arthritis of both feet (Acute) Bilateral bunions (Acute) Eczema of both hands (Acute) Engages in vaping (Acute) Encounter for weight management (Acute) Preventative health care (Acute) Perimenopausal vasomotor symptoms (Acute) Anxiety (Acute) Laboratory tests ordered as part of a complete physical exam (CPE) (Acute) Normal physical examination, routine (Acute) Past Medical History Medical History Colon cancer screening Umbilical hernia Family History Family History Paternal Grandmother FH: mental illness Family/Other FH: mental illness Daughter FH: mental illness Father HTN (hypertension) High cholesterol Diabetes Paternal Grandfather Diabetes Brain cancer Maternal Grandfather Prostate cancer Father HTN (hypertension) Surgical History Surgical History Hx of hernia repair History of knee surgery Social History Social History Housing: House Patient Tobacco Use Status: Former Tobacco user e-Cigarette/Vaping Use: Currently Using Second Hand Smoke Exposure: No Substance Use Type: Other Advance Directives: No Advance Directives Information Provided: Yes service: No Current occupational status: employed 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 Current occupational exposures/hazards: No Cognitive needs: No Hearing needs: No Vision needs: Yes Meds Allergies Allergy/AdvReac Type Severity Reaction Status Date / Time No Known Allergies Allergy Verified 08/31/25 08:23 Home Medications ?Medication ?Instructions ?Recorded ?Confirmed ?Last Taken ?Type levonorgestrel (Mirena) intrauterine 12/08/24 08/31/25 Unknown History cholecalciferol (vitamin D3) 25 25 mcg PO DAILY 06/28/25 09/04/25 Unknown History mcg (1,000 unit) capsule mecobalamin (vitamin B12) 1,000 1,000 mcg PO DAILY 06/28/25 09/04/25 Unknown History mcg chewable tablet multivitamin 1 tab PO DAILY 06/28/25 09/04/25 Unknown History Documented by User: Betzaida Garcia MD 09/06/25 08:08 [facility] Past Medical History Medical History Colon cancer screening Umbilical hernia Family History Family History Paternal Grandmother FH: mental illness Family/Other FH: mental illness Daughter FH: mental illness Father HTN (hypertension) High cholesterol Diabetes Paternal Grandfather Diabetes Brain cancer Maternal Grandfather Prostate cancer Father HTN (hypertension) Family history of problems with anesthesia: No Surgical History Surgical History Hx of hernia repair History of knee surgery History of Problems with Anesthesia: No Social History Social History Housing: House Patient Tobacco Use Status: Former Tobacco user e-Cigarette/Vaping Use: Currently Using Second Hand Smoke Exposure: No Substance Use Type: Other Advance Directives: No Advance Directives Information Provided: Yes service: No 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 occupational status: employed 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 Current occupational exposures/hazards: No Cognitive needs: No Hearing needs: No Vision needs: Yes Meds Allergies Allergy/AdvReac Type Severity Reaction Status Date / Time No Known Allergies Allergy Verified 08/31/25 08:23 Home Medications ?Medication ?Instructions ?Recorded ?Confirmed ?Last Taken ?Type levonorgestrel (Mirena) intrauterine 12/08/24 08/31/25 Unknown History cholecalciferol (vitamin D3) 25 25 mcg PO DAILY 06/28/25 09/04/25 Unknown History mcg (1,000 unit) capsule mecobalamin (vitamin B12) 1,000 1,000 mcg PO DAILY 06/28/25 09/04/25 Unknown History mcg chewable tablet multivitamin 1 tab PO DAILY 06/28/25 09/04/25 Unknown History Exam Airway Mallampati Class: II TM Dist: >3cm Neck ROM: Full Heart: rrr Lungs: cta Assessment and Plan Assessment Anesthesia Assessment: Anesthesia Plan Discussed and Chart Reviewed Final Anesthetic Review Family History of Problems with Anesthesia: No History of Problems with Anesthesia: No NPO: Yes ASA Class: II Final Preanesthetic Review: No Changes in Pt Med Stat, Meds/Allgs Chart Reviewed, Consent Obtained/Reviewed and Anes Risks/Benef Reviewed Patient Risk: Low Procedure Risk: Low Anesthetic Plan Anesthetic Plan: MAC: and Agree w/ Assess. and Plan Disposition: Standard PACU
[2025-09-04 09:38] VITALS: BMI 27.7
[2025-09-06] MEDS: Lactated Ringers 1,000 ML 100 ML IVCONT (08:02)
[2025-09-06 08:11] VITALS: BMI 27.8
[2025-09-06 08:18] LABS: UPreg QC Valid YES
[2025-09-06 08:27] VITALS: BP 125/90; PULSE 78; RESP 18; TEMP 36.8; O2SAT 98
--- NOTE | 2025-09-06 08:27 | MHC.SHP ---
Pre-Procedural Eval Section A - 24 Hr Update-Section A only Date of Service: 09/06/25 Section B - Complete if H&P > 30 days Chief Complaint: screening Details of Present Illness: Colon cancer screening Umbilical hernia Surgical History Hx of hernia repair History of knee surgery Present Medications: see Short Stay Collaborative assessment Allergies: Allergies Allergy/AdvReac Type Severity Reaction Status Date / Time No Known Allergies Allergy Verified 09/06/25 08:27 Review of Systems Review of Systems Comment: Ten point ROS negative Exam Exam Comment: Gen appear: No acute distress HEENT: no icterus Chest: No overt resp distress Abd: soft, nontender, nondistended Psych: Stable affect, answering questions appropriately Neuro: A/Ox3 noted to move all extremities spontaneously Ext: no peripheral edema Plan Diagnosis/Plan: Unchanged I have reviewed the history and physical and performed a pertinent physical examination on my patient. No changes have occurred unless specified. Time Spent With Patient Time: Total time managing care of this patient today ____ minutes.
[2025-09-06 09:24] VITALS: BP 111/70; PULSE 70; RESP 12; TEMP 36.1; O2SAT 98
--- NOTE | 2025-09-06 09:28 | P.OPN-COLO_ITS ---
Colonoscopy Operative Note Operative Note Date of Service: 09/06/25 Narrative: Procedure: Colonoscopy Indication: Screening Endoscopist: Ayala Fallon MD Anesthesia Provider: Fracisco Baird CRNA Anesthesia type: MAC Instrument: Olympus [id number]-[id number] Consent: Indication, risks vs benefits, and alternatives were discussed with the patient who gave written informed consent to proceed. EKG, pulse, pulse oximetry and blood pressure were monitored throughout the procedure. Please see anesthesia flowsheet. Procedure: The patient was brought to the procedure room and placed in the left lateral decubitus position. IV medications were administered by the anesthesia provider in attendance. A digital rectal exam was performed which was normal. A distal attachment cap was affixed to the tip of the colonoscope which was then inserted through the anus and advanced through the colon to the cecum at 75 cm,and terminal ileum. Appendiceal orifice and ileocecal valve were identified. Mucosa was carefully examined under high definition white light as the instrument was slowly withdrawn in a retrograde panoramic fashion. Retroflexion was performed in rectum. The procedure was not difficult. There were no immediate obvious complications. The quality of the prep was BBPS: 2+3+3 = adequate Withdrawal time 10 minutes. Limitations: No limitations. Findings: Mucosa: Normal to cecum and terminal ileum. Protruding lesions: * 1 sessile nodule of size 15 mm in ascending colon. Pillow sign positive. Bite on bite forceps biopsies were done that revealed fatty tissue underneath. Biopsies were sent for histology. * Medium internal hemorrhoids without stigmata of recent bleeding. Impression: 1. Normal colon and terminal ileum mucosa 2. Colon nodule likely lipoma 3. Internal hemorrhoids Recommendations: - Follow path results. - Repeat colonoscopy in 10 years for asymptomatic colorectal ca screening.
[2025-09-06 09:35] VITALS: BP 114/79; PULSE 70; RESP 12; TEMP 36.1; O2SAT 98
== END 2025-09-06 10:01 | disposition home or self-care (01) ==
PROVIDERS: Nurse Practitioner; PCP Nurse Practitioner Family; Visit Provider Internal Medicine
PROC: 0DJD8ZZ Inspection of Lower Intestinal Tract, Via Natural or Artificial Opening Endoscopic (ICD-10-PCS; CPT 45378; principal; 2025-09-06 09:10)
DX: Z12.11 Encounter for screening for malignant neoplasm of colon (principal); K64.8 Other hemorrhoids; K63.5 Polyp of colon
CPT/HCPCS: 45380; 81025; 88305; J2003; J2704

== ENCOUNTER → 2025-09-06 07:35 | Outpatient (BNV) | payer OTHER, SELFPAY | PROVIDERS: PCP Nurse Practitioner Family; Visit Provider Internal Medicine | DX: Z12.11 Encounter for screening for malignant neoplasm of colon (principal); K63.5 Polyp of colon; K64.8 Other hemorrhoids | CPT/HCPCS: 45380 ==